=== PATIENT | male | born 1940 | race Caucasian/White ===

== ENCOUNTER → 2017-12-24 08:21 | Outpatient (CLI) | payer MEDICARE, BC, SELFPAY ==
[2017-12-24 12:42] LABS: Absolute Lymphocyte Count 0.99 X10^3/ul (0.83-4.51); Absolute Neutrophil Count 3.1 X10^3/uL (2.0-7.7); Basophil# 0.02 X10^3/uL; Basophil% 0.4 % (0-1); Eosinophil# 0.14 X10^3/uL; Hematocrit 38.2 % (40-54); Hemoglobin 12.7 g/dl (13.0-16.5); Lymphocyte # 0.99 X10^3/ul (4.0); Lymphocyte % 21.2 % (19-41); Mean Corp Hgb Conc 33.2 g/gl (32-36); Mean Corpuscular Hgb 30.6 pg (27.0-32.0); Mean Platelet Vol. 10.9 fl (6.2-12.0); Monocyte# 0.39 X10^3/uL; Monocyte% 8.4 % (0-10); Neutrophil # 3.12 X10^3/uL (2.7-7.7); Neutrophil % 66.8 % (47-70); Platelet Count 199 K/mm3 (150-450); RBC Distribution Width CV 13.6 % (11.6-14.6); Red Blood Count 4.15 M/mm3 (4.6-6.2); White Blood Count 4.7 K/mm3 (4.4-11.0)
[2017-12-24 12:53] LABS: POSITIVE COUNT NO; POSITIVE DIFFERENTIAL NO; POSITIVE MORPHOLOGY NO
[2017-12-24 13:00] LABS: Anion Gap 10 (5-15); BUN 43 mg/dL (7-18); BUN/Creat Ratio 18.3 RATIO (10-20); Calcium,Total 8.9 mg/dL (8.5-10.1); Chloride 106 mmol/L (98-107); Creatinine, Serum 2.35 mg/dL (0.70-1.30); EST Glomerular Filtration Rate 29 mL/min (>60); Est Glom Filt Rate - Afr Amer 35 mL/min (>60); Glucose 99 mg/dL (74-106); Magnesium 1.6 mg/dL (1.6-2.6); Potassium 5.1 mmol/L (3.5-5.1); Sodium Level 142 mmol/L (136-145); Thyroid Stim Hormone (TSH) 3.11 uIU/mL (0.358-3.74)
== END ==
PROVIDERS: Family Provider Family Medicine; PCP Family Medicine; Visit Provider Family Medicine
DX: I12.9 Hypertensive chronic kidney disease with stage 1 through stage 4 chronic kidney disease, or unspecified chronic kidney disease (principal); N18.9 Chronic kidney disease, unspecified; E83.42 Hypomagnesemia
CPT/HCPCS: 36415; 80048; 83735; 84443; 85025

== ENCOUNTER → 2018-01-08 13:52 | Outpatient (CLI) | payer MEDICARE, BC, SELFPAY ==
[2018-01-08 16:07] LABS: Anion Gap 11 (5-15); BUN 39 mg/dL (7-18); BUN/Creat Ratio 16.7 RATIO (10-20); Calcium,Total 8.9 mg/dL (8.5-10.1); Chloride 107 mmol/L (98-107); Creatinine, Serum 2.34 mg/dL (0.70-1.30); EST Glomerular Filtration Rate 29 mL/min (>60); Est Glom Filt Rate - Afr Amer 35 mL/min (>60); Glucose 117 mg/dL (74-106); Potassium 4.7 mmol/L (3.5-5.1); Sodium Level 142 mmol/L (136-145)
== END ==
PROVIDERS: Family Provider Family Medicine; PCP Family Medicine; Visit Provider Family Medicine
DX: I12.9 Hypertensive chronic kidney disease with stage 1 through stage 4 chronic kidney disease, or unspecified chronic kidney disease (principal); N18.9 Chronic kidney disease, unspecified
CPT/HCPCS: 36415; 80048

== ENCOUNTER → 2018-02-05 09:23 | Outpatient (CLI) | payer MEDICARE, BC, SELFPAY ==
[2018-02-05 12:16] LABS: Anion Gap 12 (5-15); BUN 41 mg/dL (7-18); BUN/Creat Ratio 16.9 RATIO (10-20); Calcium,Total 8.5 mg/dL (8.5-10.1); Chloride 105 mmol/L (98-107); Creatinine, Serum 2.43 mg/dL (0.70-1.30); EST Glomerular Filtration Rate 28 mL/min (>60); Est Glom Filt Rate - Afr Amer 34 mL/min (>60); Glucose 177 mg/dL (74-106); Potassium 4.5 mmol/L (3.5-5.1); Sodium Level 141 mmol/L (136-145)
== END ==
PROVIDERS: Family Provider Family Medicine; PCP Family Medicine; Visit Provider Family Medicine
DX: N18.9 Chronic kidney disease, unspecified (principal)
CPT/HCPCS: 36415; 80048

== ENCOUNTER → 2018-05-31 09:07 | Outpatient (CLI) | payer MEDICARE, BC, SELFPAY ==
[2018-05-31 12:30] LABS: Protein, Urine (Random) 24.6 mg/dL (<11.9); Protein:Creat Ratio 281 mg/g CRE (0-200)
[2018-05-31 12:32] LABS: Hematocrit 36.6 % (40-54); Mean Corp Hgb Conc 32.8 g/gl (32-36); Mean Corpuscular Hgb 31.2 pg (27.0-32.0); Mean Corpuscular Volume 95.1 fL (80-94); Mean Platelet Vol. 10.9 fl (6.2-12.0); Platelet Count 201 K/mm3 (150-450); RBC Distribution Width CV 12.7 % (11.6-14.6); Red Blood Count 3.85 M/mm3 (4.6-6.2); White Blood Count 5.3 K/mm3 (4.4-11.0)
[2018-05-31 12:35] LABS: Albumin, Serum 3.4 g/dL (3.2-5.0); BUN 39 mg/dL (7-18); Calcium,Total 8.6 mg/dL (8.5-10.1); Chloride 104 mmol/L (98-107); Creatinine, Serum 2.17 mg/dL (0.70-1.30); EST Glomerular Filtration Rate 32 mL/min (>60); Est Glom Filt Rate - Afr Amer 38 mL/min (>60); Glucose 130 mg/dL (74-106); Phosphorus 3.4 mg/dL (2.5-4.9); Potassium 4.6 mmol/L (3.5-5.1); Sodium Level 140 mmol/L (136-145)
[2018-05-31 12:37] LABS: Scan Indicated on CBC? Y/N NO
[2018-05-31 12:45] LABS: Vitamin D,25 Hydroxy 15.8 ng/mL (29.95-100.01)
[2018-05-31 13:07] LABS: PTHIN 155.6 pg/mL (18.4-80.1)
== END ==
PROVIDERS: Family Provider Family Medicine; PCP Family Medicine; Visit Provider Internal Medicine Nephrology
DX: I12.0 Hypertensive chronic kidney disease with stage 5 chronic kidney disease or end stage renal disease (principal); N18.5 Chronic kidney disease, stage 5
CPT/HCPCS: 36415; 80069; 82306; 82570; 83970; 84156; 85027

== ENCOUNTER → 2018-10-14 09:53 | Outpatient (CLI) | payer MEDICARE, BC, SELFPAY ==
[2018-10-14 12:45] LABS: White Blood Count 5.8 K/mm3 (4.4-11.0)
[2018-10-14 12:46] LABS: Hematocrit 35.8 % (40-54); Hemoglobin 12.2 g/dl (13.0-16.5); Mean Corp Hgb Conc 34.1 g/gl (32-36); Mean Corpuscular Hgb 29.8 pg (27.0-32.0); Mean Corpuscular Volume 87.5 fL (80-94); Mean Platelet Vol. 10.5 fl (6.2-12.0); Platelet Count 306 K/mm3 (150-450); RBC Distribution Width CV 13.5 % (11.6-14.6); RBC Distribution Width SD 43.3 fl (35.1-43.9); Red Blood Count 4.09 M/mm3 (4.6-6.2); Scan Indicated on CBC? Y/N NO
[2018-10-14 13:18] LABS: Albumin, Serum 3.4 g/dL (3.2-5.0); BUN 33 mg/dL (7-18); BUN/Creat Ratio 14.2 RATIO (10-20); Calcium,Total 8.7 mg/dL (8.5-10.1); Chloride 105 mmol/L (98-107); Creatinine, Serum 2.32 mg/dL (0.70-1.30); EST Glomerular Filtration Rate 29 mL/min (>60); Est Glom Filt Rate - Afr Amer 35 mL/min (>60); Glucose 136 mg/dL (74-106); PTHIN 122.4 pg/mL (18.4-80.1); Phosphorus 2.6 mg/dL (2.5-4.9); Protein, Urine (Random) 15.6 mg/dL (<11.9); Protein:Creat Ratio 97 mg/g CRE (0-200); Sodium Level 139 mmol/L (136-145); Vitamin D,25 Hydroxy 31.7 ng/mL (29.95-100.01)
== END ==
PROVIDERS: Family Provider Family Medicine; PCP Family Medicine; Referring Provider Physician Assistant Medical; Visit Provider Physician Assistant Medical
DX: N18.3 Chronic kidney disease, stage 3 (moderate) (principal)
CPT/HCPCS: 36415; 80069; 82306; 82570; 83970; 84156; 85027

== ENCOUNTER → 2019-02-17 09:37 | Outpatient (CLI) | payer MEDICARE, BC, SELFPAY ==
[2019-02-17 12:27] LABS: AST(SGOT) 17 U/L (15-37); Absolute Neutrophil Count 3.3 X10^3/uL (2.0-7.7); Alanine Aminotransfer ALT/SGPT 30 U/L (16-61); Albumin, Serum 3.5 g/dL (3.2-5.0); Alkaline Phosphatase 72 U/L (45-117); Amylase 40 U/L (25-115); Anion Gap 6 (5-15); BUN 41 mg/dL (7-18); BUN/Creat Ratio 17.5 RATIO (10-20); Basophil# 0.03 X10^3/uL; Basophil% 0.6 % (0-1); Calcium,Total 8.9 mg/dL (8.5-10.1); Chloride 108 mmol/L (98-107); Creatinine, Serum 2.34 mg/dL (0.70-1.30); EST Glomerular Filtration Rate 29 mL/min (>60); Eosinophil# 0.12 X10^3/uL; Eosinophils% 2.5 % (0-5); Est Glom Filt Rate - Afr Amer 35 mL/min (>60); Globulin 3.4 g/dL (2.2-4.2); Glucose 143 mg/dL (74-106); Hematocrit 35.7 % (40-54); Hemoglobin 11.6 g/dL (13.0-16.5); Mean Corp Hgb Conc 32.5 g/dL (32-36); Mean Corpuscular Hgb 30.2 pg (27.0-32.0); Mean Platelet Vol. 11.1 fl (6.2-12.0); Monocyte# 0.47 X10^3/uL; NRBC Flagged by Analyzer 0 % (0-5); Neutrophil # 3.28 X10^3/uL (2.7-7.7); Neutrophil % 69.7 % (47-70); Platelet Count 206 K/mm3 (150-450); Protein, Total 6.9 g/dL (6.4-8.2); RBC Distribution Width SD 44.3 fl (35.1-43.9); Red Blood Count 3.84 M/mm3 (4.6-6.2); Sodium Level 142 mmol/L (136-145); White Blood Count 4.7 K/mm3 (4.4-11.0)
== END ==
PROVIDERS: Family Provider Family Medicine; PCP Family Medicine; Referring Provider Internal Medicine Gastroenterology; Visit Provider Internal Medicine Gastroenterology
DX: R10.84 Generalized abdominal pain (principal); R19.7 Diarrhea, unspecified
CPT/HCPCS: 36415; 80053; 82150; 85025

== ENCOUNTER → 2019-02-18 08:43 | Outpatient (CLI) | payer MEDICARE, BC, SELFPAY | PROVIDERS: Family Provider Family Medicine; PCP Family Medicine; Referring Provider Internal Medicine Gastroenterology; Visit Provider Internal Medicine Gastroenterology | DX: R10.84 Generalized abdominal pain (principal); R19.7 Diarrhea, unspecified | CPT/HCPCS: 82274; 83630; 87177; 87209; 87493 ==

== ENCOUNTER → 2019-02-24 13:11 | Outpatient (CLI) | payer MEDICARE, BC, SELFPAY ==
[2019-02-24 15:56] LABS: Ferritin 130 ng/mL (26-388); Iron 59 ug/dL (65-175)
[2019-02-24 16:01] LABS: Vitamin B12 384 pg/mL (211-911)
[2019-02-27 16:08] LABS: Endomysial Antibody IgA Negative (Negative)
[2019-02-28 12:48] LABS: Deamidated Gliadin IgA 2 units (0-19); Deamidated Gliadin IgG 2 units (0-19); Immunoglobulin A 77 mg/dL (61-437); t-Transglutaminase IgA <2 U/mL (0-3)
== END ==
PROVIDERS: Family Provider Family Medicine; PCP Family Medicine; Referring Provider Internal Medicine Gastroenterology; Visit Provider Internal Medicine Gastroenterology
DX: D64.9 Anemia, unspecified (principal); R14.0 Abdominal distension (gaseous); R94.4 Abnormal results of kidney function studies
CPT/HCPCS: 36415; 82607; 82728; 82784; 83516; 83540; 86255

== ENCOUNTER → 2019-12-29 10:49 | Outpatient (CLI) | payer MEDICARE, BC, SELFPAY ==
[2019-08-14 17:31] VITALS: BMI 34.6
[2019-12-29 12:00] LABS: Absolute Lymphocyte Count 0.86 X10^3/uL (0.83-4.51); Absolute Neutrophil Count 3.7 X10^3/uL (2.0-7.7); Basophil# 0.03 X10^3/uL; Basophil% 0.6 % (0-1); Eosinophil# 0.15 X10^3/uL; Eosinophils% 2.9 % (0-5); Hematocrit 38.4 % (40-54); Hemoglobin 12.7 g/dL (13.0-16.5); Lymphocyte # 0.86 X10^3/ul (4.0); Lymphocyte % 16.8 % (19-41); Mean Corp Hgb Conc 33.1 g/dL (32-36); Mean Corpuscular Hgb 30.6 pg (27.0-32.0); Mean Corpuscular Volume 92.5 fL (80-94); Monocyte# 0.34 X10^3/uL; Monocyte% 6.7 % (0-10); NRBC Flagged by Analyzer 0 % (0-5); Neutrophil # 3.72 X10^3/uL (2.7-7.7); Neutrophil % 72.8 % (47-70); Platelet Count 193 K/mm3 (150-450); RBC Distribution Width CV 12.9 % (11.6-14.6); RBC Distribution Width SD 43.1 fl (35.1-43.9); Red Blood Count 4.15 M/mm3 (4.6-6.2); White Blood Count 5.1 K/mm3 (4.4-11.0)
[2019-12-29 12:28] LABS: Hemoglobin A1c 6.9 % (3.8-5.6)
[2019-12-29 12:33] LABS: ALB/GLOB Ratio 1.1 RATIO (0.9-2.4); AST(SGOT) 21 U/L (15-37); Alanine Aminotransfer ALT/SGPT 28 U/L (16-61); Albumin, Serum 3.6 g/dL (3.2-5.0); Alkaline Phosphatase 49 U/L (45-117); Anion Gap 6 (5-15); BUN 32 mg/dL (7-18); BUN/Creat Ratio 15.4 RATIO (10-20); Calcium,Total 8.8 mg/dL (8.5-10.1); Chloride 105 mmol/L (98-107); Cholesterol 151 mg/dL (200); Creatinine, Serum 2.08 mg/dL (0.70-1.30); EST Glomerular Filtration Rate 33 mL/min (>60); Est Glom Filt Rate - Afr Amer 40 mL/min (>60); Ferritin 125 ng/mL (26-388); Globulin 3.3 g/dL (2.2-4.2); Glucose 124 mg/dL (74-106); High Density Lipoprotein 34 mg/dL; Iron 77 ug/dL (65-175); Magnesium 1.8 mg/dL (1.6-2.6); Potassium 4.1 mmol/L (3.5-5.1); Protein, Total 6.9 g/dL (6.4-8.2); Sodium Level 139 mmol/L (136-145); Triglycerides 173 mg/dL; Very Low Density Lipoprotein 35 mg/dL (5-40)
== END ==
PROVIDERS: PCP Family Medicine; Visit Provider Family Medicine
DX: I12.9 Hypertensive chronic kidney disease with stage 1 through stage 4 chronic kidney disease, or unspecified chronic kidney disease (principal); N18.9 Chronic kidney disease, unspecified; D50.9 Iron deficiency anemia, unspecified; E78.00 Pure hypercholesterolemia, unspecified; E83.42 Hypomagnesemia; R73.01 Impaired fasting glucose
CPT/HCPCS: 36415; 80053; 80061; 82728; 83036; 83540; 83735; 85025

== ENCOUNTER → 2020-03-31 11:10 | Outpatient (CLI) | payer MEDICARE, BC, SELFPAY ==
[2019-08-14 17:31] VITALS: BMI 34.6
[2020-03-31 15:33] LABS: Absolute Lymphocyte Count 1.01 X10^3/uL (0.83-4.51); Basophil# 0.04 X10^3/uL; Basophil% 0.6 % (0-1); Eosinophil# 0.13 X10^3/uL; Eosinophils% 1.9 % (0-5); Hematocrit 39.4 % (40-54); Lymphocyte # 1.01 X10^3/ul (4.0); Lymphocyte % 15.1 % (19-41); Mean Corpuscular Hgb 30.4 pg (27.0-32.0); Mean Corpuscular Volume 92.1 fL (80-94); Monocyte# 0.46 X10^3/uL; Monocyte% 6.9 % (0-10); NRBC Flagged by Analyzer 0 % (0-5); Neutrophil # 4.97 X10^3/uL (2.7-7.7); Neutrophil % 74.3 % (47-70); Platelet Count 225 K/mm3 (150-450); RBC Distribution Width CV 12.7 % (11.6-14.6); RBC Distribution Width SD 42.5 fl (35.1-43.9); Red Blood Count 4.28 M/mm3 (4.6-6.2); White Blood Count 6.7 K/mm3 (4.4-11.0)
[2020-03-31 16:04] LABS: ALB/GLOB Ratio 1.1 RATIO (0.9-2.4); AST(SGOT) 20 U/L (15-37); Alanine Aminotransfer ALT/SGPT 30 U/L (16-61); Albumin, Serum 3.8 g/dL (3.2-5.0); Alkaline Phosphatase 52 U/L (45-117); Anion Gap 6 (5-15); BUN 42 mg/dL (7-18); BUN/Creat Ratio 18.6 RATIO (10-20); Calcium,Total 9.1 mg/dL (8.5-10.1); Chloride 104 mmol/L (98-107); Creatinine, Serum 2.26 mg/dL (0.70-1.30); EST Glomerular Filtration Rate 30 mL/min (>60); Est Glom Filt Rate - Afr Amer 36 mL/min (>60); Ferritin 159 ng/mL (26-388); Globulin 3.5 g/dL (2.2-4.2); Glucose 114 mg/dL (74-106); Iron 83 ug/dL (65-175); Magnesium 1.9 mg/dL (1.6-2.6); Potassium 4.6 mmol/L (3.5-5.1); Protein, Total 7.3 g/dL (6.4-8.2); Sodium Level 138 mmol/L (136-145)
[2020-03-31 18:49] LABS: Vitamin D,25 Hydroxy 35.2 ng/mL
== END ==
PROVIDERS: PCP Family Medicine; Visit Provider Family Medicine
DX: R73.01 Impaired fasting glucose (principal); I12.9 Hypertensive chronic kidney disease with stage 1 through stage 4 chronic kidney disease, or unspecified chronic kidney disease; N18.9 Chronic kidney disease, unspecified; D63.1 Anemia in chronic kidney disease; E55.9 Vitamin D deficiency, unspecified
CPT/HCPCS: 36415; 80053; 82306; 82728; 83540; 83735; 85025

== ENCOUNTER → 2020-09-10 08:35 | Outpatient (CLI) | payer MEDICARE, BC, SELFPAY ==
[2019-08-14 17:31] VITALS: BMI 34.6
--- NOTE | 2020-09-10 08:40 | ECHOD_ITS ---
Reason For Study: SOB Procedure This was a 2D Doppler, Color Flow transthoracic echocardiogram. The study was technically difficult. Exam performed in department. Left Ventricle Normal LV size. Moderate concentric left ventricular hypertrophy. Left ventricular systolic function is normal. The estimated ejection fraction is 60 %. Septal bounce. Diastolic function is indeterminate. No regional wall motion abnormalities noted. Right Ventricle Normal RV size. Normal systolic function. Atria Normal left atrium. Normal right atrium. No doppler evidence for ASD. Mitral Valve There is no mitral annular calcification. Normal mitral valve. Moderate (2+) eccentric mitral valve insufficiency. Tricuspid Valve Normal tricuspid valve. Mild tricuspid valve insufficiency. Right ventricular systolic pressure estimated to be 31 mmHg. Aortic Valve The aortic valve is not well visualized. Pulmonic Valve The pulmonic valve is not well visualized. Trivial pulmonic valve insufficiency. Great Vessels Normal sized aortic root. Pericardium/Pleural No pericardial effusion. MMode/2D Measurements & Calculations LVIDd: 4.8 cm IVSd: 1.3 cm Ao root diam: 4.3 cm LVIDs: 2.9 cm LVPWd: 1.4 cm RVDd: 3.4 cm FS: 38.8 % LAV(MOD-bp): 36.9 ml LVAd ap4: 31.0 cm2 SV(MOD-sp4): 54.3 ml LAV(MOD-bp) Indexed: 17.0 ml/m2 EDV(MOD-sp4): 91.0 ml LAV(MOD-sp2): 54.0 ml EDV(sp4-el): 94.7 ml LAV(MOD-sp4): 22.1 ml LVAs ap4: 18.4 cm2 ESV(MOD-sp4): 36.7 ml ESV(sp4-el): 37.7 ml EF(MOD-sp4): 59.7 % EF(sp4-el): 60.2 % SV(sp4-el): 57.0 ml LA A4 area: 11.2 cm2 LA dimension(2D): 4.0 cm RA A4 area: 10.1 cm2 Doppler Measurements & Calculations MV E max rolf: 69.5 cm/sec Lat Peak E' Rolf: 6.1 cm/sec Med Peak E' Rolf: 4.3 cm/sec MV A max rolf: 115.0 cm/sec E/E' lat: 11.4 E/E' med: 16.3 MV E/A: 0.60 Ao V2 max: 153.2 cm/sec LV V1 max: 115.6 cm/sec PA V2 max: 122.2 cm/sec Ao max P.4 mmHg LV V1 max P.3 mmHg TR max rolf: 262.9 cm/sec TR max P.7 mmHg ECHO/Echo Complete Interpretation Summary The study was technically difficult. Left ventricular systolic function is normal. The estimated ejection fraction is 60 %. Moderate concentric left ventricular hypertrophy. Septal bounce. Moderate (2+) eccentric mitral valve insufficiency. Mild tricuspid valve insufficiency. Trivial pulmonic valve insufficiency. Right ventricular systolic pressure estimated to be 31 mmHg. Diastolic function is indeterminate. Ordering Physician: Chris Nix Referring Physician: Chris Nix Performed By: Mary Sam RDCS
== END ==
PROVIDERS: PCP Family Medicine; Referring Provider Family Medicine; Visit Provider Family Medicine
DX: R06.00 Dyspnea, unspecified (principal); I11.9 Hypertensive heart disease without heart failure
CPT/HCPCS: 93306

== ENCOUNTER → 2022-08-22 | Outpatient (CLI) | payer MEDICARE, BC, SELFPAY ==
[2022-08-22 10:28] LABS: Vitamin B12 428 pg/mL (211-911)
[2022-08-22 10:30] LABS: ALB/GLOB Ratio 0.9 RATIO (0.9-2.4); AST(SGOT) 20 U/L (15-37); Alanine Aminotransfer ALT/SGPT 25 U/L (16-61); Albumin, Serum 3.4 g/dL (3.2-5.0); Alkaline Phosphatase 67 U/L (45-117); Anion Gap 6 (5-15); BUN 38 mg/dL (7-18); Calcium,Total 8.9 mg/dL (8.5-10.1); Chloride 108 mmol/L (98-107); Cholesterol 162 mg/dL (200); EST Glomerular Filtration Rate 34 mL/min (>60); Est Glom Filt Rate - Afr Amer 42 mL/min (>60); Globulin 3.7 g/dL (2.2-4.2); Glucose 141 mg/dL (74-106); High Density Lipoprotein 34 mg/dL; PSA,Total - Annual Screen 0.26 ng/mL (0.00-4.00); Protein, Total 7.1 g/dL (6.4-8.2); Sodium Level 138 mmol/L (136-145); Triglycerides 214 mg/dL; Very Low Density Lipoprotein 43 mg/dL (5-40)
[2022-08-22 12:26] LABS: Hemoglobin A1c 6.3 % (3.8-5.6)
[2022-08-25 09:46] LABS: Vitamin D 1,25-Dihydroxy 23.3 pg/mL (24.8-81.5)
== END | disposition home or self-care (01) ==
PROVIDERS: PCP Family Medicine; Referring Provider Family Medicine; Visit Provider Family Medicine
DX: I10 Essential (primary) hypertension (principal); R73.01 Impaired fasting glucose; E78.2 Mixed hyperlipidemia; K21.9 Gastro-esophageal reflux disease without esophagitis; Z12.5 Encounter for screening for malignant neoplasm of prostate
CPT/HCPCS: 36415; 80053; 80061; 82043; 82607; 82652; 83036; 84153; G0103

== ENCOUNTER → 2022-09-01 | Outpatient (CLI) | payer MEDICARE, BC, SELFPAY ==
--- NOTE | 2022-09-01 08:46 | ECHOD_ITS ---
Reason For Study: MURMUR Procedure This was a 2D Doppler, Color Flow transthoracic echocardiogram. Exam performed in department. Left Ventricle Normal LV size. Mild concentric left ventricular hypertrophy. The left ventricular ejection fraction is 65 %. Normal diastology for age. Right Ventricle Normal right ventricle. Atria The left and right atria are normal. 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 Tricuspid Valve Mild tricuspid valve insufficiency. Normal pulmonary artery pressure. Aortic Valve Trisinus/trileaflet aortic valve. Trivial aortic valve insufficiency. Pulmonic Valve The pulmonic valve is not well visualized. Great Vessels Moderately dilated aortic root. Pericardium/Pleural No pericardial effusion. MMode/2D Measurements & Calculations Ao root diam: 4.4 cm LAV(MOD-bp): 44.1 ml LVAd ap4: 32.2 cm2 LAV(MOD-bp) Indexed: 22.9 ml/m2 LVLd ap4: 8.3 cm LAV(MOD-sp2): 46.7 ml EDV(MOD-sp4): 99.6 ml LAV(MOD-sp4): 41.7 ml EDV(sp4-el): 105.2 ml LVAs ap4: 17.3 cm2 LVLs ap4: 7.3 cm ESV(MOD-sp4): 34.4 ml ESV(sp4-el): 34.5 ml EF(MOD-sp4): 65.5 % EF(sp4-el): 67.3 % SV(MOD-sp4): 65.2 ml SV(sp4-el): 70.8 ml LA A4 area: 16.3 cm2 LA dimension(2D): 3.7 cm RA A4 area: 14.2 cm2 Time Measurements MV dec time: 0.24 sec Doppler Measurements & Calculations MV E max rolf: 84.6 cm/sec Lat Peak E' Rolf: 10.0 cm/sec Med Peak E' Rolf: 7.8 cm/sec MV A max rolf: 102.9 cm/sec E/E' lat: 8.5 E/E' med: 10.9 MV E/A: 0.82 MV V2 max: 114.6 cm/sec MV dec slope: 352.5 cm/sec2 Ao V2 max: 127.0 cm/sec MV max P.3 mmHg Ao max P.5 mmHg MV V2 mean: 60.9 cm/sec Ao V2 mean: 88.1 cm/sec MV mean P.8 mmHg Ao mean P.5 mmHg MV V2 VTI: 43.8 cm Ao V2 VTI: 30.6 cm AV (velocity ratio): 0.82 LV V1 max: 109.6 cm/sec MR max rolf: 597.9 cm/sec PA V2 max: 103.8 cm/sec LV V1 max P.8 mmHg MR max P.0 mmHg PA V2 mean: 60.9 cm/sec LV V1 mean P.8 mmHg MR mean rolf: 421.7 cm/sec LV V1 mean: 76.3 cm/sec MR mean P.9 mmHg LV V1 VTI: 25.2 cm MR VTI: 218.7 cm TR max rolf: 249.4 cm/sec TR max P.9 mmHg ECHO/Echo Complete Interpretation Summary Mild concentric left ventricular hypertrophy. The left ventricular ejection fraction is 65 %. 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 Mild tricuspid valve insufficiency. Moderately dilated aortic root. Ordering Physician: Mandy Billings Referring Physician: Mandy Billings Performed By: Deborah Che RCS
== END | disposition home or self-care (01) ==
LOC: CVS 08:44
PROVIDERS: PCP Family Medicine; Referring Provider Family Medicine; Visit Provider Family Medicine
DX: R01.1 Cardiac murmur, unspecified (principal)
CPT/HCPCS: 93306

== ENCOUNTER → 2023-09-17 | Outpatient (CLI) | payer MEDICARE, BC, SELFPAY ==
[2023-09-17 12:10] LABS: Absolute Lymphocyte Count 0.93 X10^3/uL (0.83-4.51); Basophil# 0.04 X10^3/uL; Basophil% 0.7 % (0-1); Eosinophil# 0.16 X10^3/uL; Eosinophils% 2.9 % (0-5); Hematocrit 39.3 % (40-54); Hemoglobin 12.9 g/dL (13.0-16.5); Lymphocyte # 0.93 X10^3/ul (0.83-4.51); Lymphocyte % 16.6 % (19-41); Mean Corp Hgb Conc 32.8 g/dL (32-36); Mean Corpuscular Hgb 30.6 pg (27.0-32.0); Mean Corpuscular Volume 93.3 fL (80-94); Mean Platelet Vol. 10.6 fl (6.2-12.0); Monocyte# 0.42 X10^3/uL; Monocyte% 7.5 % (0-10); NRBC Flagged by Analyzer 0 % (0-5); Neutrophil # 4.02 X10^3/uL (2.7-7.7); Neutrophil % 71.9 % (47-70); Platelet Count 216 K/mm3 (150-450); RBC Distribution Width CV 13.1 % (11.6-14.6); RBC Distribution Width SD 44.5 fl (35.1-43.9); Red Blood Count 4.21 M/mm3 (4.6-6.2); White Blood Count 5.6 K/mm3 (4.4-11.0)
[2023-09-17 12:25] LABS: AST(SGOT) 18 U/L (15-37); Alanine Aminotransfer ALT/SGPT 26 U/L (16-61); Albumin, Serum 3.5 g/dL (3.2-5.0); Alkaline Phosphatase 53 U/L (45-117); Anion Gap 6 (5-15); BUN 43 mg/dL (7-18); BUN/Creat Ratio 18.9 RATIO (10-20); Calcium,Total 8.8 mg/dL (8.5-10.1); Chloride 107 mmol/L (98-107); Cholesterol 180 mg/dL (200); Creatinine, Serum 2.28 mg/dL (0.70-1.30); EST Glomerular Filtration Rate 30 mL/min (>60); Est Glom Filt Rate - Afr Amer 36 mL/min (>60); Globulin 3.4 g/dL (2.2-4.2); Glucose 156 mg/dL (74-106); High Density Lipoprotein 31 mg/dL; Magnesium 1.9 mg/dL (1.6-2.6); PSA,Total - Annual Screen 0.32 ng/mL (0.00-4.00); Potassium 4.4 mmol/L (3.5-5.1); Protein, Total 6.9 g/dL (6.4-8.2); Sodium Level 140 mmol/L (136-145); Triglycerides 265 mg/dL; Very Low Density Lipoprotein 53 mg/dL (5-40)
[2023-09-17 12:44] LABS: Vitamin D,25 Hydroxy 48.6 ng/mL
== END | disposition home or self-care (01) ==
PROVIDERS: PCP Nurse Practitioner Family; Referring Provider Nurse Practitioner Family; Visit Provider Nurse Practitioner Family
DX: I12.9 Hypertensive chronic kidney disease with stage 1 through stage 4 chronic kidney disease, or unspecified chronic kidney disease (principal); N18.9 Chronic kidney disease, unspecified; E78.00 Pure hypercholesterolemia, unspecified; E55.9 Vitamin D deficiency, unspecified; Z12.5 Encounter for screening for malignant neoplasm of prostate
CPT/HCPCS: 36415; 80053; 80061; 82306; 83735; 84153; 85025; G0103

== ENCOUNTER → 2024-03-14 | Outpatient (CLI) | payer MEDICARE, BC, SELFPAY ==
[2024-03-14 10:39] LABS: Absolute Lymphocyte Count 1.26 X10^3/uL (0.83-4.51); Absolute Neutrophil Count 4.1 X10^3/uL (2.0-7.7); Basophil# 0.03 X10^3/uL; Basophil% 0.5 % (0-1); Eosinophil# 0.14 X10^3/uL; Eosinophils% 2.3 % (0-5); Hematocrit 40.2 % (40-54); Hemoglobin 13.5 g/dL (13.0-16.5); Lymphocyte # 1.26 X10^3/ul (0.83-4.51); Lymphocyte % 21.1 % (19-41); Mean Corp Hgb Conc 33.6 g/dL (32-36); Mean Corpuscular Hgb 31.5 pg (27.0-32.0); Mean Corpuscular Volume 93.7 fL (80-94); Mean Platelet Vol. 10.7 fl (6.2-12.0); Monocyte# 0.45 X10^3/uL; Monocyte% 7.6 % (0-10); NRBC Flagged by Analyzer 0 % (0-5); Neutrophil # 4.06 X10^3/uL (2.7-7.7); Neutrophil % 68.2 % (47-70); Platelet Count 216 K/mm3 (150-450); RBC Distribution Width CV 12.9 % (11.6-14.6); RBC Distribution Width SD 44.1 fl (35.1-43.9); Red Blood Count 4.29 M/mm3 (4.6-6.2)
[2024-03-14 11:23] LABS: Vitamin B12 475 pg/mL (211-911)
[2024-03-14 12:07] LABS: AST(SGOT) 16 U/L (15-37); Alanine Aminotransfer ALT/SGPT 27 U/L (16-61); Albumin, Serum 3.6 g/dL (3.2-5.0); Alkaline Phosphatase 64 U/L (45-117); Anion Gap 7 (5-15); BUN 38 mg/dL (7-18); BUN/Creat Ratio 15.4 RATIO (10-20); Calcium,Total 9.4 mg/dL (8.5-10.1); Chloride 104 mmol/L (98-107); Creatinine, Serum 2.46 mg/dL (0.70-1.30); EST Glomerular Filtration Rate 27 mL/min (>60); Est Glom Filt Rate - Afr Amer 33 mL/min (>60); Ferritin 153 ng/mL (26-388); Globulin 3.6 g/dL (2.2-4.2); Glucose 153 mg/dL (74-106); Iron 80 ug/dL (65-175); Iron Binding Capacity,Total 375 ug/dL (250-450); PERCENT IRON SATURATION 21.3 % (15.0-55.0); Protein, Total 7.2 g/dL (6.4-8.2); Sodium Level 137 mmol/L (136-145)
== END | disposition home or self-care (01) ==
LOC: MTLAB 07:28
PROVIDERS: PCP Nurse Practitioner Family
DX: K22.70 Barrett's esophagus without dysplasia (principal); D64.9 Anemia, unspecified
CPT/HCPCS: 36415; 80053; 82607; 82728; 82746; 83540; 83550; 85025

== ENCOUNTER → 2024-10-07 | Outpatient (CLI) | payer MEDICARE, BC, SELFPAY ==
[2024-10-07 15:50] LABS: ALB/GLOB Ratio 1.5 RATIO (0.9-2.4); AST(SGOT) 22 U/L (<=37); Alanine Aminotransfer ALT/SGPT 19 U/L (<=46); Albumin, Serum 3.9 g/dL (3.4-4.8); Alkaline Phosphatase 52 U/L (40-129); Anion Gap 13 (5-15); BUN 37 mg/dL (4-19); BUN/Creat Ratio 17.4 RATIO (10-20); Calcium,Total 9.5 mg/dL (7.6-11.0); Carbon Dioxide 21.6 mmol/L (21.0-32.0); Chloride 104 mmol/L (98-108); Creatinine, Serum 2.15 mg/dL (0.70-1.20); EST Glomerular Filtration Rate 30 (>60); Globulin 2.6 g/dL (2.2-4.2); Glucose 206 mg/dL (70-99); Potassium 4.5 mmol/L (3.3-5.1); Protein, Total 6.5 g/dL (5.9-8.4); Sodium Level 138 mmol/L (133-145); Total Bilirubin 0.39 mg/dL (0.00-1.30)
== END | disposition home or self-care (01) ==
LOC: MTLAB 12:52
PROVIDERS: PCP Nurse Practitioner Family; Referring Provider Internal Medicine Cardiovascular Disease; Visit Provider Internal Medicine Cardiovascular Disease
DX: R06.09 Other forms of dyspnea (principal); I10 Essential (primary) hypertension; R00.2 Palpitations
CPT/HCPCS: 36415; 80053

== ENCOUNTER → 2024-11-17 | Outpatient (CLI) | payer MEDICARE, BC, SELFPAY ==
--- OUTSIDE RECORDS SUMMARY | 2024-11-17 06:32 | XMS RPT_ITS | CCD ---
Author Organization [facility] Care Team Providers Care Pond Worker Name Role Phone PLECHA, AMANDA Unavailable Unavailable PLECHA, AMANDA Unavailable Unavailable DAMIEN, CHRIS Unavailable Unavailable YOUNIS, BISHR Unavailable Unavailable PLECHA, AMANDA Unavailable Unavailable DAMIEN, CHRIS Unavailable Unavailable PLECHA, AMANDA Unavailable Unavailable DAMIEN, CHRIS Unavailable Unavailable PLECHA, AMANDA Unavailable Unavailable DAMIEN, CHRIS Unavailable Unavailable PLECHA, AMANDA Unavailable Unavailable DAMIEN, CHRIS Unavailable Unavailable PLECHA, AMANDA Unavailable Unavailable PLECHA, AMANDA Unavailable Unavailable DAMIEN, CHRIS Unavailable Unavailable PLECHA, AMANDA Unavailable Unavailable DAMIEN, CHRIS Unavailable Unavailable DO Mandy Billings Primary Care Provider Dr. Gurpreet Aggarwal Attending Provider Chris Nix MD Primary Care Provider Una GENERAL HOUSE WORKER-C, Suze Primary Care Provider Una GENERAL HOUSE WORKER-C, Suze Referring Provider Dr. Gurpreet Aggarwal MD Attending Provider [phone] Dr. Gurpreet Aggarwal MD Referring Provider Gurpreet Aggarwal Attending Unavailable JasenGurpreet Referring Unavailable Una, Suze Primary Care Unavailable JESSICA DANGELOBARREL COATER Attending Unavailab le JESSICA DANGELO APRN-BARREL COATER Referring Unavailab le Una, Suze Primary Care Unavailable JasenGurpreet Attending Unavailable Jasen Gurpreet Referring Unavailable Una, Suze Primary Care Unavailable Una, Suze Referring Unavailable Jasen, Gurpreet Attending Unavailable Una, Suze Primary Care Unavailable Allergies Allergy Classification Reported Allergen(s) Allergy Type Date of Onset Reaction(s) Facility (6 sources) Adhesive Tape; Translations: [adhesive tape] Propensity to adverse reactions 0 Unknown [facility] (6 sources) Cephalexin Drug Allergy 0 Rash [facility] (6 sources) Chocolate; Translations: [chocolate flavor] Propensity to adverse reactions 0 Unknown [facility] (5 sources) Sulfonamides (Antibiotic) Allergy to substance 0 Rash [facility] (1 source) Adhesive Tape Allergy to substance 0 Unknown [facility] (1 source) Chocolate Food Allergy 0 Unknown [facility] (1 source) Sulfonamides (Antibiotic) Propensity to adverse reactions to drug 1 Rash, Unknown [facility] (1 source) Cephalexin Drug Allergy 5 [facility] Repository (1 source) Sulfonamides (Antibiotic) Drug allergy (disorder) 5 [facility] Repository Medications Current Medications Medication Drug Class(es) Dates Sig (Normalized) Sig (Original) amLODIPine 10 mg oral tablet (8 sources) Dihydropyridine Calcium Channel Tate Start: 10-01-2024 take 1 tablet by mouth once daily Amlodipine 10 mg tablet Active 10 mg PO daily October 01, 2024 12:00am Start: 06-18-2017 End: 10-01-2024 take 1 tablet by mouth once daily Amlodipine 2.5 mg tablet Discontinued 2.5 mg PO daily June 18, 2017 1:00am October 01, 2024 3:54pm take 1 tablet by el twice daily amLODIPine (NORVASC) 5 mg tablet Take 5 mg by mouth twice daily. Active aspirin 81 mg chewable tablet (6 sources) Platelet Aggregation Inhibitor, Nonsteroidal Anti-inflammatory Drug Start: 06-02-2017 Aspirin 81 MG tablet,chewable Active 81 mg PO June 02, 2017 1:00am cholecalciferol 0.125 mg oral capsule (7 sources) Vitamin D Start: 10-01-2024 take 1 capsule by mouth once daily Cholecalciferol (Vitamin D3) 125 mcg (5,000 unit) capsule Active 125 ug PO daily October 01, 2024 12:00am Start: 08-14-2019 End: 10-01-2024 take 1 capsule by mouth once daily Cholecalciferol (Vitamin D3) 1,250 mcg (50,000 unit) capsule Discontinued 1250 ug PO DAILY August 14, 2019 12:00am October 01, 2024 3:59pm cyclobenzaprine hydrochloride 10 mg oral tablet (6 sources) Muscle Relaxant Start: 06-15-2017 take 5 mg by mouth three times daily as needed Cyclobenzaprine 10 mg tablet Active 5 mg PO THREE TIMES A DAY as needed June 15, 2017 1:00am Start: 06-15-2017 take 5 mg by mouth t hree times daily Cyclobenzaprine Active 5 MG PO THREE TIMES A DAY June 15, 2017 1:00am take 1 tablet by el th every twelve hours as needed cyclobenzaprine (FLEXERIL) 10 mg tablet Take 10 mg by mouth twice daily as needed. Active doxazosin 4 mg oral tablet (5 sources) alpha-Adrenergic Tate Start: 08-14-2019 take 1 tablet by mouth once daily Doxazosin 4 mg tablet Active 4 mg PO DAILY August 14, 2019 12:00am fenofibrate 145 mg oral tablet (6 sources) Peroxisome Proliferator Receptor alpha Agonist Start: 06-02-2017 take 1 tablet by mouth once daily Fenofibrate Nanocrystallized 145 MG tablet Active 145 mg PO DAILY June 02, 2017 1:00am hydroCHLOROthiazide 25 mg oral tablet (6 sources) Thiazide Diuretic Start: 06-02-2017 take 1 tablet by mouth once daily Hydrochlorothiazide 25 MG tablet Active 25 mg PO DAILY June 02, 2017 1:00am lansoprazole 30 mg delayed release oral capsule (2 sources) Proton Pump Inhibitor Start: 10-01-2024 Lansoprazole 30 mg capsule,delayed release(DR/EC) Active mg PO October 01, 2024 12:00am Magnesium (1 source) take 2 tablets by mouth once daily Magnesium 250 mg tab Take 500 mg by mouth once daily. Active magnesium oxide 400 mg oral capsule (10 sources) Start: 06-15-2017 take 1 capsule by mouth once daily Magnesium Oxide 400 mg capsule Active 400 mg PO daily June 15, 2017 1:00am Start: 06-02-2017 End: 06-15-2017 take 1 tablet by mouth twice daily Magnesium Oxide 250 MG tablet Discontinued 250 mg PO TWICE A DAY June 02, 2017 1:00am June 15, 2017 12:47pm metoprolol tartrate 100 mg oral tablet (11 sources) beta-Adrenergic Tate Start: 06-18-2017 take 1 tablet by mouth twice daily Metoprolol Tartrate 100 mg tablet Active 100 mg PO TWICE A DAY June 18, 2017 1:00am Start: 06-02-2017 End: 06-18-2017 take 1 tablet by mouth twice daily Metoprolol Tartrate 50 MG tablet Discontinued 50 mg PO TWICE A DAY June 02, 2017 1:00am June 18, 2017 11:38am Bqwbaqob-Thmi-Sic-Folic Acid (3 sources) Start: 06-02-2017 Nkfjabhr-Hmmj-Vgc-Folic Acid Active 1 EACH PO DAILY June 02, 2017 1:00am Ftzbkpin-Mhjy-Riw-Folic Acid 1 EACH tablet (2 sources) Start: 06-02-2017 take 1 tablet by mouth once daily Ijozwvdk-Edtr-Aru-Folic Acid 1 EACH tablet Active 1 NMA PO DAILY June 02, 2017 1:00am tamsulosin hydrochloride 0.4 mg oral capsule (6 sources) alpha-Adre nergic Tate Start: 06-02-2017 Tamsulosin 0.4 MG capsule Active 1 {tbl} PO TWICE A DAY June 02, 2017 1:00am Start: 06-02-2017 take 1 tablet by el th twice daily Tamsulosin Active 1 TABLET PO TWICE A DAY June 02, 2017 1:00am triamcinolone acetonide 1 mg/ml topical cream (2 sources) Corticosteroid Start: 10-01-2024 Triamcinolone Acetonide 0.1 % cream Active 1 NMA TOPICAL TWICE A DAY as needed October 01, 2024 12:00am apply to affected area 2 times per day as needed Completed/Discontinued Medications Medication Drug Class(es) Dates Sig (Normalized) Sig (Original) azithromycin 250 mg oral tablet (5 sources) Macrolide Antimicrobial Start: 08-14-2019 End: 10-01-2024 Azithromycin 250 mg tablet Discontinued 250 mg PO daily 12 August 14, 2019 12:00am October 01, 2024 3:55pm 2 tablets today, then 1 tablet daily on days 2 through 11 colestipol hydrochloride 1000 mg oral tablet (5 sources) Bile Acid Sequestrant Start: 08-14-2019 End: 10-01-2024 take 1 tablet by mouth once Colestipol 1 gram tablet Discontinued 1 g PO ONCE August 14, 2019 12:00am October 01, 2024 4:00pm swallow whole tab w/any liquid;do not crush/chew/cut;adm inister other meds 1hr before/4hr after taking dose fexofenadine hydrochloride 60 mg oral tablet (11 sources) Histamine-1 Receptor Antagonist Start: 06-15-2017 End: 08-14-2019 take 1 tablet by mouth every twelve hours as needed Fexofenadine 60 mg tablet Discontinued 60 mg PO Q12H as needed June 18, 2017 11:38am August 14, 2019 5:28pm take 1 capsule by mo [facility] every twelve hours as needed FEXOFENADINE 60 MG CAP Take 60 mg by el th twice daily as needed. Active gabapentin 100 mg oral capsule (2 sources) Anti-epileptic Agent Start: 10-01-2024 End: 10-07-2024 take 1 capsule by mouth three times daily Gabapentin 100 mg capsule Discontinued 100 mg PO THREE TIMES A DAY October 01, 2024 12:00am October 07, 2024 11:09am loperamide hydrochloride 2 mg oral capsule (5 sources) Opioid Agonist Start: 08-14-2019 End: 10-01-2024 Loperamide (Imodium A-D) 2 mg capsule Discontinued 2 mg PO Q4H as needed August 14, 2019 12:00am October 01, 2024 4:00pm administer after each loose stool until symptoms controlled; do not exceed 8 mg per 24 hrs omeprazole 20 mg delayed release oral capsule (6 sources) Proton Pump Inhibitor Start: 06-02-2017 End: 08-14-2019 take 1 capsule by mouth twice daily Omeprazole 20 MG capsule Discontinued 20 mg PO TWICE A DAY June 02, 2017 1:00am August 14, 2019 5:28pm psyllium 520 mg oral capsule (7 sources) Start: 10-01-2024 End: 10-07-2024 Psyllium Husk (Daily Fiber) 0.52 gram capsule Discontinued 1.04 g PO TWICE A DAY October 01, 2024 12:00am October 07, 2024 11:10am Start: 08-14-2019 End: 10-01-2024 Psyllium Husk (Fiber (Psylli um Husk)) 0.4 gram capsule Discontinued 0.4 g PO DAILY August 14, 2019 12:00am October 01, 2024 3:59pm quinapril 20 mg oral tablet (15 sources) Angiotensin Converting Enzyme Inhibitor Start: 06-18-2017 End: 10-01-2024 take 1 tablet by mouth twice daily Quinapril 20 MG tablet Discontinued 20 mg PO TWICE A DAY June 18, 2017 11:37am October 01, 2024 4:00pm Start: 06-15-2017 End: 06-18-2017 take 1 tablet by mouth once daily Quinapril 20 MG tablet Discontinued 20 mg PO daily June 15, 2017 12:47pm June 18, 2017 11:39am Start: 06-02-2017 End: 06-15-2017 take 1 tablet by mouth twice daily Quinapril 20 MG tablet Discontinued 20 mg PO TWICE A DAY June 02, 2017 1:00am June 15, 2017 12:47pm Problems Problem Classification Problem Date Documented Date Episodic/Chronic Aortic; peripheral; and visceral artery aneurysms (7 sources) Abdominal aortic aneurysm; Translations: [Abdominal aortic aneurysm (AAA)] 06-15-2017 Chronic Comment on above: 5.4cm in diameter an d 9.6cm length CT of Abdomen 06/02/17 1.4cm May 2017 Cardiac dysrhythmias (10 sources) Sinus bradycardia; Translations: [Bradycardia, unspecified] Onset: 10-07-2024 06-15-2017 Episodic Chronic kidney disease (4 sources) Chronic kidney disease stage 3; Translations: [Stage 3 chronic kidney disease] 10-01-2024 Chronic Chronic kidney disease (1 source) Chronic kidney disease; Translations: [Chronic kidney disease, stage 3 unspecified] Onset: 10-07-2024 Conduction disorders (3 sources) Left bundle branch block; Translations: [Left bundle-branch block, unspecified] Onset: 10-07-2024 10-01-2024 Chronic Diabetes mellitus without complication (2 sources) Impaired fasting glycemia; Translations: [Impaired fasting glucose] 10-01-2024 Episodic Disorders of lipid metabolism (12 sources) Hyperlipidemia; Translations: [Hyperlipidemia, unspecified] Onset: 10-07-2024 06-15-2017 Chronic Esophageal disorders (1 source) 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; Translations: [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] Onset: 04-03-2024 Chronic Essential hypertension (10 sources) Hypertensive disorder; Translations: [Essential (primary) hypertension] Onset: 10-07-2024 06-15-2017 Chronic Heart valve disorders (6 sources) Mitral valve regurgitation; Translations: [Nonrheumatic mitral (valve) insufficiency] Onset: 10-07-2024 10-07-2024 Chronic Other connective tissue disease (2 sources) Monoparesis - leg; Translations: [Other symptoms and signs involving the musculoskeletal system] 10-01-2024 Episodic Other lower respiratory disease (4 sources) Dyspnea on exertion; Translations: [Other forms of dyspnea] 10-07-2024 Episodic Other lower respiratory disease (2 sources) Other forms of dyspnea; Translations: [Other forms of dyspnea] Onset: 10-11-2024 Episodic Other nutritional; endocrine; and metabolic disorders (4 sources) Obesity; Translations: [Obesity, unspecified] 10-07-2024 Chronic Other nutritional; endocrine; and metabolic disorders (1 source) Obesity, unspecified; Translations: [Obesity, unspecified] Onset: 10-07-2024 Chronic Residual codes; unclassified (2 sources) History of great vessel repair; Translations: [Other specified postprocedural states] 10-01-2024 Episodic Comment on above: 07/2017:Open with ao rta tube graft, 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 Residual codes; unclassified (4 sources) History of repair of aneurysm of abdominal aorta; Translations: [Other specified postprocedural states] 10-07-2024 Episodic Residual codes; unclassified (1 source) Other specified postprocedural states; Translations: [Other specified postprocedural states] Onset: 10-07-2024 Episodic Results Test Name Value Interpretation Reference Range Facility Anion gap in Serum or Plasma Ordered By: Gurpreet Aggawral on 10-07-2024 Anion gap [Moles/Vol] 13 mmol/L 5-15 [facility] BUN/creatinine ratioOrdered By: Gurpreet Aggarwal on 10-07-2024 Urea nitrogen/Creatinine [Mass ratio] 17.4 mg/mg 10-20 [facility] Bilirubin, totalOrdered By: Gurpreet Aggarwal on 10-07-2024 Bilirubin [Mass/Vol] 0.39 mg/dL 0.00-1.[address] [facility] Carbon dioxide, total [Moles /volume] in Central venous bloodOrdered By: Gurpreet Aggarwal on 10-07-2024 CO2 [Moles/Vol] 21.6 mmol/L 21.0-32.0 [facility] Cardiology Visit Reporton Cardiology Visit Report [facility] [place] [facility] [address] [place] [address] OFFICE VISIT Date of Service: 10/07/24 MR#: [id number] Acct: [id number] Name: YANICK VAUGHN Rep #: [id number] : 1940 Provider: Dr. Gurpreet Aggarwal MD Age/Sex: 83/M Location: [facility] [place] Status: Signed HPI HPI History of Present Illness Details: This pleasant gentleman is here to reestablish care with us. He has a past medical history significant for mitral valve regurgitation, abdominal aortic aneurysm status post repair, hypertension, dyslipidemia and obesity. Patient denies any chest pains either at rest or with exertion. Over the last 2 to 3 months, he has been getting increasingly short of breath with exertion. Denies any orthopnea or PND. No ankle edema. Per patient, he cannot walk as much as he like because of his spinal stenosis. Denies any palpitations. He has no history of CVA or TIA. Denies any syncope or presyncope. No lightheadedness or dizziness. Intake Vital Signs 10/07/24 08:25 Height 5 ft 9 in Weight: 220 lb BMI 32.5 BP 139/77 H Blood Pressure Location Lt brachial Position Sitting Respiration 20 H Pulse 65 Pulse Source NIBP Intake Visit Reasons: ABN EKG (UNA) Unified Communications Engineer Required: No Accompanied by: Self Is patient in pain?: Yes (spinal stenosis with walking) Allergies cephalexin (From Keflex) Allergy (Verified 10/07/24 11:14) Rash Sulfa (Sulfonamide Antibiotics) Allergy (Verified 10/07/24 11:14) Rash adhesive tape Adverse Reaction (Unknown, Verified 10/07/24 11:14) Unknown chocolate flavor Adverse Reaction (Unknown, Verified 10/07/24 11:14) Unknown Medications ???Medication ???Instructions ???Recorded ???Confirmed ???Type aspirin 81 mg chewable tablet 81 mg PO 06/02/17 10/07/24 History fenofibrate nanocrystallized 145 145 mg PO DAILY 06/02/17 10/07/24 History mg tablet hydrochlorothiazide 25 mg tablet 25 mg PO DAILY 06/02/17 10/07/24 H istory kqkizkcs-mfti-sto-folic acid 18 1 ea PO DAILY 06/02/17 10/07/24 Hi story mg-0.4 mg tablet tamsulosin 0.4 mg capsule 1 tab PO BID 06/02/17 10/07/24 His tory cyclobenzaprine 10 mg tablet 5 mg PO TID PRN 06/15/17 10/07/24 History magnesium oxide 400 mg PO QDAY 06/15/17 10/07/24 H istory metoprolol tartrate 100 mg tablet 100 mg PO BID 06/18/17 10/07/24 H istory doxazosin 4 mg tablet 4 mg PO DAILY 08/14/19 10/07/24 Hi story amlodipine 10 mg tablet 10 mg PO QDAY 10/01/24 10/07/24 Hi story cholecalciferol (vitamin D3) 125 125 mcg PO QDAY 10/01/24 10/07/24 History mcg (5,000 unit) capsule lansoprazole 30 mg capsule,delayed mg PO 10/01/24 10/07/24 History release triamcinolone acetonide 0.1 % 1 applic topical BID PRN 10/01/24 10/07/24 History topical cream Ejection fraction %: 65 Have you fallen in the past year?: No PFSH Medical History Abdominal aortic aneurysm (AAA) Actinic keratosis Rojas esophagus BPH (benign prostatic hyperplasia) Bradycardia Chronic renal impairment CKD (chronic kidney disease) stage 3, GFR 30-59 ml/min Colon polyp Diverticulitis Essential hypertension GERD (gastroesophageal reflux disease) Hypercholesterolemia Hyperlipidemia Hypertension Hypomagnesemia Impaired fasting glucose LBBB (left bundle branch block) Left leg weakness Low back pain Normocytic anemia Obesity Palpitations Renal artery aneurysm Sciatica Sinus bradycardia Testicular seminoma Surgical History History of aortic aneurysm repair History of cataract extraction History of cholecystectomy History of orchiectomy Hx of appendectomy Family History Father Heart disease Myocardial infarction, Onset Age: 64 CHF (congestive heart failure) Mother COPD (chronic obstructive pulmonary disease) Cancer Emphysema, unspecified Brother COPD (chronic obstructive pulmonary disease) Cancer Emphysema, unspecified Social History Smoking Status: Former smoker alcohol intake: never substance use type: does not use caffeine: Yes what type of physical activity do you participate in: walking ROS Const Const: Positive for fatigue and weakness; Negative for headache(s) or weight gain ENT ENT: Negative for headache(s), dizziness, Nosebleed/epistaxis or balance problems Cardio Chest Pain: No Palpitations: Yes Edema: None Muscle aches with walking: None Resp Respiratory: Positive for SOB with activity; Negative for SOB at rest or SOB orthopnea SOB lying down GI GI: Negative nausea, vomiting or heartburn Musc Musc: Positive for joint pain (spinal (more content not included)... Normal [facility] Chloride assayOrdered By: Dane Aggarwal on 10-07-2024 Chloride [Moles/Vol] 104 mmol/L 98-[address] [facility] Comprehensive Metabolic Prof ilon 10-07-2024 Albumin [Mass/Vol] 3.9 g/dL Normal 3.4-4.8 [facility] Comment on above: Performed By: #### L [id number] #### [facility] [address] [place], [address] Albumin/Globulin [Mass ratio] 1.5 {ratio} Normal 0.9-2.4 [facility] Comment on above: Performed By: #### L [id number] #### [facility] [address] [place], [address] ALK PHOS 52 U/L Normal 40-129 [facility] Comment on above: Performed By: #### [id number] #### [facility] [address] [place], [address] ALT [Catalytic activity/Vol] 19 U/L Normal <=46 [facility] Comment on above: Performed By: #### [id number] #### [facility] [address] [place], [address] AST [Catalytic activity/Vol] 22 U/L Normal <=37 [facility] Comment on above: Performed By: #### [id number] #### [facility] [address] [place], [address] Bilirubin [Mass/Vol] 0.39 mg/dL Normal 0.00-1.[address] [facility] Comment on above: Performed By: #### L [id number] #### [facility] [address] [place], [address] BUN/CRE 17.4 RATIO Normal 10-20 [facility] Comment on above: Performed By: #### [id number] #### [facility] [address] [place], [address] Calcium [Mass/Vol] 9.5 mg/dL Normal 7.6-11.0 [facility] Comment on above: Performed By: #### [id number] #### [facility] [address] [place], [address] Chloride [Moles/Vol] 104 mmol/L Normal 98-[address] [facility] Comment on above: Performed By: #### [id number] #### [facility] [address] [place], [address] CO2 [Moles/Vol] 21.6 mmol/L Normal 21.0-32.0 [facility] Comment on above: Performed By: #### [id number] #### [facility] [address] [place], [address] Creatinine [Mass/Vol] 2.15 mg/dL High 0.70-1.20 [facility] Comment on above: Performed By: #### L [id number] #### [facility] [address] [place], [address] GAP 13 Normal 5-15 [facility] Comment on above: Performed By: #### L [id number] #### [facility] [address] [place], [address] GFR/1.73 sq M.predicted among non-blacks MDRD (S/P/Bld) [Vol rate/Area] 30 mL/min/{1.73_m2} Low >60 [facility] Comment on above: Result Comment: mL/m in/1.73m2 CKD-EPI Creatinine Equation (2020) Performed By: #### L [id number] #### [facility] [address] [place], [address] Globulin (S) [Mass/Vol] 2.6 g/dL Normal 2.2-4.2 [facility] Comment on above: Performed By: #### [id number] #### [facility] [address] [place], [address] Glucose [Mass/Vol] 206 mg/dL High 70-99 [facility] Comment on above: Performed By: #### [id number] #### [facility] [address] [place], [address] Potassium [Moles/Vol] 4.5 mmol/L Normal 3.3-5.1 [facility] Comment on above: Performed By: #### L [id number] #### [facility] [address] [place], [address] Sodium [Moles/Vol] 138 mmol/L Normal 133-145 [facility] Comment on above: Performed By: #### [id number] #### [facility] [address] [place], [address] T PROT 6.5 g/dL Normal 5.9-8.4 [facility] Comment on above: Performed By: #### L [id number] #### [facility] [address] [place], [address] Urea nitrogen [Mass/Vol] 37 mg/dL High 4-19 [facility] Comment on above: Performed By: #### L [id number] #### [facility] [address] [place], [address] Glomerular filtration rate ( GFR) estimation/1.73 sq m using serum, plasma, or whole bOrdered By: Gurpreet Aggarwal on 10-07-2024 GFR/1.73 sq M.predicted among non-blacks MDRD (S/P/Bld) [Vol rate/Area] 30 mL/min/{1.73_m2} Low >60 [facility] Comment on above: mL/min/1.73m2 CKD-EP I Creatinine Equation (2020) Laboratory - Chemistry and C hemistry - challengeOrdered By: Gurpreet Aggarwal on 10-07-2024 AST [Catalytic activity/Vol] 22 U/L <38 [facility] Potassium measurement (mass/ volume)Ordered By: Gurpreet Aggarwal on 10-07-2024 Potassium (Unsp spec) [Mass/Vol] 4.5 mmol/L 3.3-5.1 [facility] Serum creatinine measurement (mass/volume)Ordered By: Gurpreet Aggarwal on 10-07-2024 Creatinine [Mass/Vol] 2.15 mg/dL High 0.70-1.20 [facility] Serum globulin measurementOr dered By: Gurpreet Aggarwal on 10-07-2024 Globulin (S) [Mass/Vol] 2.6 g/dL 2.2-4.2 [facility] Serum glucose measurement (m ass/volume)Ordered By: Gurpreet Aggarwal on 10-07-2024 Glucose [Mass/Vol] 206 mg/dL High 70-99 [facility] Serum or plasma alanine weinberg otransferase (ALT) measurementOrdered By: Gurpreet Aggarwal on 10-07-2024 ALT [Catalytic activity/Vol] 19 U/L <47 [facility] Serum or plasma albumin adelso urement (mass/volume)Ordered By: Gurpreet Aggarwal on 10-07-2024 Albumin [Mass/Vol] 3.9 g/dL 3.4-4.8 [facility] Serum or plasma albumin/glob ulin mass ratioOrdered By: [facility] on 10-07-2024 Albumin/Globulin [Mass ratio] 1.5 {ratio} 0.9-2.4 [facility] Serum or plasma alkaline adalgisa sphatase measurementOrdered By: [facility] on 10-07-2024 ALP [Catalytic activity/Vol] 52 U/L 40-129 [facility] Serum or plasma calcium adelso urement (mass/volume)Ordered By: [facility] on 10-07-2024 Calcium [Mass/Vol] 9.5 mg/dL 7.6-11.0 [facility] Serum or plasma urea nitroge n measurement (mass/volume)Ordered By: [facility] on 10-07-2024 Urea nitrogen [Mass/Vol] 37 mg/dL High 4-19 [facility] Sodium levelOrdered By: [facility] on 10-07-2024 Sodium [Moles/Vol] 138 mmol/L 133-145 [facility] Total proteinOrdered By: [facility] on 10-07-2024 Protein [Mass/Vol] 6.5 g/dL 5.9-8.4 [facility] CBC W/Diff, Automatedon 02-25 Absolute Lymph 1.26 X10 3/uL Normal 0.83-4.51 [facility] Comment on above: Performed By: #### L 500.4050, L503.0105, L503.6030, L503.6550, L506.0250, L100.0100 #### [facility] Laboratory [address] [place], [address] Absolute Neut 4.1 X10 3/uL Normal 2.0-7.7 [facility] Comment on above: Performed By: #### L 500.4050, L503.0105, L503.6030, L503.6550, L506.0250, L100.0100 #### [facility] Laboratory [address] [place], [address] Basophils/100 WBC (Bld) 0.5 % Normal 0-1 [facility] Comment on above: Performed By: #### L 500.4050, L503.0105, L503.6030, L503.6550, L506.0250, L100.0100 #### [facility] Laboratory [address] [place], [address] Eosinophils/100 WBC (Bld) 2.3 % Normal 0-5 [facility] Comment on above: Performed By: #### L 500.4050, L503.0105, L503.6030, L503.6550, L506.0250, L100.0100 #### [facility] Laboratory [address] [place], [address] Erythrocyte distribution width (RBC) [Ratio] 12.9 % Normal 11.6-14.6 [facility] Comment on above: Performed By: #### L 500.4050, L503.0105, L503.6030, L503.6550, L506.0250, L100.0100 #### [facility] Laboratory [address] [place], [address] Hematocrit (Bld) [Volume fraction] 40.2 % Normal 40-54 [facility] Comment on above: Performed By: #### L 500.4050, L503.0105, L503.6030, L503.6550, L506.0250, L100.0100 #### [facility] Laboratory [address] [place], [address] Hemoglobin (Bld) [Mass/Vol] 13.5 g/dL Normal 13.0-16.5 [facility] Comment on above: Performed By: #### L 500.4050, L503.0105, L503.6030, L503.6550, L506.0250, L100.0100 #### [facility] Laboratory [address] [place], [address] IG% 0.300 Normal 0.0-0.9 [facility] Comment on above: Result Comment: IG% - Immature Granulocytes (promyelocytes, myelocytes and metamyelocytes) > 1% indicates that a LEFT SHIFT is Present. Performed By: #### L 500.4050, L503.0105, L503.6030, L503.6550, L506.0250, L100.0100 #### [facility] Laboratory [address] [place], [address] Lymphocytes/100 WBC (Bld) 21.1 % Normal 19-41 [facility] Comment on above: Performed By: #### L 500.4050, L503.0105, L503.6030, L503.6550, L506.0250, L100.0100 #### [facility] Laboratory [address] [place], [address] MCH (RBC) [Entitic mass] 31.5 pg Normal 27.0-32.0 [facility] Comment on above: Performed By: #### L 500.4050, L503.0105, L503.6030, L503.6550, L506.0250, L100.0100 #### [facility] Laboratory [address] [place], [address] MCHC (RBC) [Mass/Vol] 33.6 g/dL Normal 32-36 [facility] Comment on above: Performed By: #### L 500.4050, L503.0105, L503.6030, L503.6550, L506.0250, L100.0100 #### [facility] Laboratory [address] [place], [address] MCV (RBC) [Entitic vol] 93.7 fL Normal 80-94 [facility] Comment on above: Performed By: #### L 500.4050, L503.0105, L503.6030, L503.6550, L506.0250, L100.0100 #### [facility] Laboratory [address] [place], [address] Monocytes/100 WBC (Bld) 7.6 % Normal 0-10 [facility] Comment on above: Performed By: #### L 500.4050, L503.0105, L503.6030, L503.6550, L506.0250, L100.0100 #### [facility] Laboratory [address] [place], [address] Neutrophils/100 WBC (Bld) 68.2 % Normal 47-70 [facility] Comment on above: Performed By: #### L 500.4050, L503.0105, L503.6030, L503.6550, L506.0250, L100.0100 #### [facility] Laboratory [address] [place], [address] Nucleated RBC (Bld) [#/Vol] 0 10*3/uL Normal 0-5 [facility] Comment on above: Performed By: #### L 500.4050, L503.0105, L503.6030, L503.6550, L506.0250, L100.0100 #### [facility] Laboratory [address] [place], [address] Platelet mean volume (Bld) [Entitic vol] 10.7 fL Normal 6.2-12.0 [facility] Comment on above: Performed By: #### L 500.4050, L503.0105, L503.6030, L503.6550, L506.0250, L100.0100 #### [facility] Laboratory [address] [place], [address] Platelets (Bld) [#/Vol] 216 10*3/uL Normal 150-450 [facility] Comment on above: Performed By: #### L 500.4050, L503.0105, L503.6030, L503.6550, L506.0250, L100.0100 #### [facility] Laboratory [address] [place], [address] RBC (Bld) [#/Vol] 4.29 10*6/uL Low 4.6-6.2 [facility] Comment on above: Performed By: #### L 500.4050, L503.0105, L503.6030, L503.6550, L506.0250, L100.0100 #### [facility] Laboratory [address] [place], [address] RDW SD 44.1 fl High 35.1-43.9 [facility] Comment on above: Performed By: #### L 500.4050, L503.0105, L503.6030, L503.6550, L506.0250, L100.0100 #### [facility] Laboratory [address] [place], [address] WBC (Bld) [#/Vol] 6.0 10*3/uL Normal 4.4-11.0 [facility] Comment on above: Performed By: #### L 500.4050, L503.0105, L503.6030, L503.6550, L506.0250, L100.0100 #### [facility] Laboratory [address] [place], [address] Comprehensive Metabolic Prof [facility] 03-14-2024 Albumin [Mass/Vol] 3.6 g/dL Normal 3.2-5.0 [facility] Comment on above: Order Comment: N Performed By: #### L 500.4050, L503.0105, L503.6030, L503.6550, L506.0250, L100.0100 #### [facility] Laboratory [address] [place], [address] Albumin/Globulin [Mass ratio] 1.0 {ratio} Normal 0.9-2.4 [facility] Comment on above: Order Comment: N Performed By: #### L 500.4050, L503.0105, L503.6030, L503.6550, L506.0250, L100.0100 #### [facility] Laboratory [address] [place], [address] ALK P 64 U/L Normal 45-117 [facility] Comment on above: Order Comment: N Performed By: #### L 500.4050, L503.0105, L503.6030, L503.6550, L506.0250, L100.0100 #### [facility] Laboratory [address] [place], [address] ALT [Catalytic activity/Vol] 27 U/L Normal 16-61 [facility] Comment on above: Order Comment: N Performed By: #### L 500.4050, L503.0105, L503.6030, L503.6550, L506.0250, L100.0100 #### [facility] Laboratory [address] [place], [address] AST [Catalytic activity/Vol] 16 U/L Normal 15-37 [facility] Comment on above: Order Comment: N Performed By: #### L 500.4050, L503.0105, L503.6030, L503.6550, L506.0250, L100.0100 #### [facility] Laboratory [address] [place], [address] Bilirubin [Mass/Vol] 0.60 mg/dL Normal 0.20-1.[address] [facility] Comment on above: Order Comment: N Result Comment: For patients on eltrombopag therapy, use of Dimension Leroy TBIL is not recommended. Performed By: #### L 500.4050, L503.0105, L503.6030, L503.6550, L506.0250, L100.0100 #### [facility] Laboratory [address] [place], [address] BUN/CRE 15.4 RATIO Normal 10-20 [facility] Comment on above: Order Comment: N Performed By: #### L 500.4050, L503.0105, L503.6030, L503.6550, L506.0250, L100.0100 #### [facility] Laboratory [address] [place], [address] CA,Total 9.4 mg/dL Normal 8.5-10.1 [facility] Comment on above: Order Comment: N Performed By: #### L 500.4050, L503.0105, L503.6030, L503.6550, L506.0250, L100.0100 #### [facility] Laboratory [address] [place], [address] Chloride [Moles/Vol] 104 mmol/L Normal 98-[address] [facility] Comment on above: Order Comment: N Performed By: #### L 500.4050, L503.0105, L503.6030, L503.6550, L506.0250, L100.0100 #### [facility] Laboratory [address] [place], [address] CO2 [Moles/Vol] 26.0 mmol/L Normal 21.0-32.0 [facility] Comment on above: Order Comment: N Performed By: #### L 500.4050, L503.0105, L503.6030, L503.6550, L506.0250, L100.0100 #### [facility] Laboratory [address] [place], [address] Creatinine [Mass/Vol] 2.46 mg/dL High 0.70-1.30 [facility] Comment on above: Order Comment: N Result Comment: The validity of the calculated GFR GFRAA in patients over 70 years has not been determined. Clinical correlation is essential. Performed By: #### L 500.4050, L503.0105, L503.6030, L503.6550, L506.0250, L100.0100 #### [facility] Laboratory [address] [place], [address] EST GFR - AA 33 mL/min Low >60 [facility] Comment on above: Order Comment: N Result Comment: Afri can Serbian GFR Calc Performed By: #### L 500.4050, L503.0105, L503.6030, L503.6550, L506.0250, L100.0100 #### [facility] Laboratory [address] [place], [address] GAP 7 Normal 5-15 [facility] Comment on above: Order Comment: N Performed By: #### L 500.4050, L503.0105, L503.6030, L503.6550, L506.0250, L100.0100 #### [facility] Laboratory [address] [place], [address] GFR/1.73 sq M.predicted among non-blacks MDRD (S/P/Bld) [Vol rate/Area] 27 mL/min/{1.73_m2} Low >60 [facility] Comment on above: Order Comment: N Result Comment: Non- GFR Calc Performed By: #### L 500.4050, L503.0105, L503.6030, L503.6550, L506.0250, L100.0100 #### [facility] Laboratory [address] [place], [address] Globulin (S) [Mass/Vol] 3.6 g/dL Normal 2.2-4.2 [facility] Comment on above: Order Comment: N Performed By: #### L 500.4050, L503.0105, L503.6030, L503.6550, L506.0250, L100.0100 #### [facility] Laboratory [address] [place], [address] Glucose [Mass/Vol] 153 mg/dL High 74-106 [facility] Comment on above: Order Comment: N Result Comment: Fast ing Glucose result greater than or equal to 126 mg/dL suggests DIABETES MELLITUS per A.D.A. criteria. Performed By: #### L 500.4050, L503.0105, L503.6030, L503.6550, L506.0250, L100.0100 #### [facility] Laboratory [address] [place], [address] Potassium [Moles/Vol] 4.0 mmol/L Normal 3.5-5.1 [facility] Comment on above: Order Comment: N Performed By: #### L 500.4050, L503.0105, L503.6030, L503.6550, L506.0250, L100.0100 #### [facility] Laboratory [address] [place], [address] Sodium [Moles/Vol] 137 mmol/L Normal 136-145 [facility] Comment on above: Order Comment: N Performed By: #### L 500.4050, L503.0105, L503.6030, L503.6550, L506.0250, L100.0100 #### [facility] Laboratory [address] [place], [address] T PROT 7.2 g/dL Normal 6.4-8.2 [facility] Comment on above: Order Comment: N Performed By: #### L 500.4050, L503.0105, L503.6030, L503.6550, L506.0250, L100.0100 #### [facility] Laboratory [address] [place], [address] Urea nitrogen [Mass/Vol] 38 mg/dL High - [facility] Comment on above: Order Comment: N Performed By: #### L 500.4050, L503.0105, L503.6030, L503.6550, L506.0250, L100.0100 #### [facility] Laboratory [address] [place], [address] Ferritinon 03-14-2024 Ferritin [Mass/Vol] 153 ng/mL Normal 26-388 [facility] Comment on above: Order Comment: N Performed By: #### L 500.4050, L503.0105, L503.6030, L503.6550, L506.0250, L100.0100 #### [facility] Laboratory [address] [place], [address] Folates, (Folic Acid)on 02-25 FOLATES 27.80 ng/mL Normal 3.1-55.4 [facility] Comment on above: Order Comment: N Performed By: #### L 500.4050, L503.0105, L503.6030, L503.6550, L506.0250, L100.0100 #### [facility] Laboratory [address] [place], [address] Iron+Iron Binding Capacityon 03-14-2024 Iron [Mass/Vol] 80 ug/dL Normal 65-175 [facility] Comment on above: Order Comment: N Performed By: #### L 500.4050, L503.0105, L503.6030, L503.6550, L506.0250, L100.0100 #### [facility] Laboratory [address] [place], [address] IRON SATURATION 21.3 Normal 15.0-55.0 [facility] Comment on above: Order Comment: N Performed By: #### L 500.4050, L503.0105, L503.6030, L503.6550, L506.0250, L100.0100 #### [facility] Laboratory [address] [place], [address] TIBC 375 ug/dL Normal 250-450 [facility] Comment on above: Order Comment: N Performed By: #### L 500.4050, L503.0105, L503.6030, L503.6550, L506.0250, L100.0100 #### [facility] Laboratory [address] [place], [address] Vitamin B12on 03-14-2024 Cobalamin (Vitamin B12) [Mass/Vol] 475 pg/mL Normal 211-911 [facility] Comment on above: Performed By: #### L 500.4050, L503.0105, L503.6030, L503.6550, L506.0250, L100.0100 #### [facility] Laboratory [address] [place], [address] Absolute lymphocyte countOrd ered By: Suzecesar Barboza on 09-17-2023 Lymphocytes Auto (Unsp spec) [#/Vol] 0.93 10*3/uL 0.83-4.51 [facility] Automated lymphocyte count a s percentage of total leukocytesOrdered By: Suze Barboza on 09-17-2023 Lymphocytes/100 WBC Auto (Unsp spec) 16.6 % 19-41 [facility] Basophil percentageOrdered B y: Suze Odonnellgar on 09-17-2023 Basophils/100 WBC (Bld) 0.7 % 0-1 [facility] Bilirubin [Mass/Vol] 0.60 mg/dL 0.20-1.[address] [facility] Comment on above: For patients on eltr ombopag therapy, use of Dimension Leroy TBIL is not recommended. Chloride [Moles/Vol] 107 mmol/L 98-[address] [facility] Cholesterol [Mass/Vol] 180 mg/dL <200 [facility] Comment on above: <200 mg/dL Desirable 200-240 mg/dL Borderline >240 mg/dL High Risk Eosinophils/100 WBC (Bld) 2.9 % 0-5 [facility] Glucose [Mass/Vol] 156 mg/dL 74-106 [facility] Comment on above: Fasting Glucose resu lt greater than or equal to 126 mg/dL suggests DIABETES MELLITUS per A.D.A. criteria. Hemoglobin (Bld) [Mass/Vol] 12.9 g/dL 13.0-16.5 [facility] Monocytes/100 WBC (Bld) 7.5 % 0-10 [facility] Neutrophils (Bld) [#/Vol] 4.0 10*3/uL 2.0-7.7 [facility] Neutrophils/100 WBC (Bld) 71.9 % 47-70 [facility] Potassium [Moles/Vol] 4.4 mmol/L 3.5-5.1 [facility] Protein [Mass/Vol] 6.9 g/dL 6.4-8.2 [facility] Sodium [Moles/Vol] 140 mmol/L 136-145 [facility] Triglyceride [Mass/Vol] 265 mg/dL <199 [facility] Comment on above: The drugs N-Acetylcy steine and Metamizole may falsely depress this assay.Serum Triglycerides Reference Interval Normal <150 mg/dL Borderline high 150 - 199 mg/dL High 200 - 499 mg/dL Very High > or = 500 mg/dL WBC (Bld) [#/Vol] 5.6 10*3/uL 4.4-11.0 [facility] Determination of erythrocyte mean corpuscular volume (MCV)Ordered By: Suze Barboza on 09-17-2023 MCV (RBC) [Entitic vol] 93.3 fL 80-94 [facility] Erythrocyte distribution wid th ratioOrdered By: [facility] Erythrocyte distribution width (RBC) [Ratio] 13.1 % 11.6-14.6 [facility] Erythrocyte distribution wid th standard deviationOrdered By: [facility] on 09-17-2023 Erythrocyte distribution width (RBC) [Entitic vol] 44.5 fL 35.1-43.9 [facility] Hematocrit Auto (Bld) [Volum e fraction]Ordered By: Suze Una on 09-17-2023 Hematocrit (Bld) [Volume fraction] 39.3 % 40-54 [facility] Immature granulocytes/100 WB C Auto (Bld)Ordered By: Suzecesar Barboza on 09-17-2023 Immature granulocytes/100 WBC (Bld) 0.400 % 0.0-0.9 [facility] Comment on above: IG% - Immature Granu locytes (promyelocytes, myelocytes and metamyelocytes) > 1% indicates that a LEFT SHIFT is Present. Laboratory - Chemistry and C hemistry - challengeOrdered By: Suze Barboza on 09-17-2023 Albumin/Globulin [Mass ratio] 1.0 {ratio} 0.9-2.4 [facility] ALP [Catalytic activity/Vol] 53 U/L 45-117 [facility] ALT [Catalytic activity/Vol] 26 U/L 16-61 [facility] Cholesterol in HDL [Mass/Vol] 31 mg/dL >40 [facility] Comment on above: The drugs N-Acetylcy steine and Metamizole may falsely depress this assay. Reference Range HDL <40 mg/dL Low HDL Cholesterol HDL >or= 60 mg/dL High HDL Cholesterol Cholesterol in LDL [Mass/Vol] 96 mg/dL 0-130 [facility] CO2 [Moles/Vol] 27.0 mmol/L 21.0-32.0 [facility] Globulin (S) [Mass/Vol] 3.4 g/dL 2.2-4.2 [facility] Magnesium [Mass/Vol] 1.9 mg/dL 1.6-2.[address] [facility] Urea nitrogen/Creatinine [Mass ratio] 18.9 mg/mg 10-20 [facility] Laboratory - Hematology and Cell countsOrdered By: Suze Barboza on 09-17-2023 MCH (RBC) [Entitic mass] 30.6 pg 27.0-32.0 [facility] MCHC (RBC) [Mass/Vol] 32.8 g/dL 32-36 [facility] Nucleated RBC/100 WBC (Bld) [Ratio] 0 % 0-5 [facility] Platelet mean volume (Bld) [Entitic vol] 10.6 fL 6.2-12.0 [facility] Platelets (Bld) [#/Vol] 216 10*3/uL 150-450 [facility] No Panel InformationOrdered By: Suze Barboza on 09-17-2023 Estimated GFR (MDRD) Amer 36 mL/min >60 [facility] Comment on above: GFR Calc Estimated GFR (MDRD) Non-Af Amer 30 mL/min >60 [facility] Comment on above: Non- GFR Calc Prostate Specific Antigen Screen 0.32 ng/mL 0.00-4.00 [facility] Comment on above: This test was perfor med using the TPSA assay method for the[facility]. Values obtained with differentassay methods cannot be used interchangably.When changing PSA assays in the course of monitoring apatient, additional sequential testing should be carriedout to confirm baseline values. Vitamin D 25-Hydroxy 48.6 ng/mL [facility] Comment on above: Vitamin D 25(OH) Sta tus Range Deficiency <20 ng/mL (50nmol/L) Insufficiency 20 - 30 ng/mL (50 - 75 nmol/L) Sufficiency 30 - 100 ng/mL (75 - 250 nmol/L) Toxicity >100 ng/mL (>250 nmol/L) VLDL Cholesterol 53 mg/dL 5-40 [facility] RBC Auto (Bld) [#/Vol]Ordere d By: Suze Barboza on 09-17-2023 RBC (Bld) [#/Vol] 4.21 10*6/uL 4.6-6.2 [facility] Serum or plasma calcium adelso urement (mass/volume)Ordered By: Suze Barboza on 09-17-2023 Calcium [Mass/Vol] 8.8 mg/dL 8.5-10.1 [facility] Serum or plasma creatinine m easurement (mass/volume)Ordered By: Suze Barboza on 09-17-2023 Creatinine [Mass/Vol] 2.28 mg/dL 0.70-1.30 [facility] Comment on above: The validity of the calculated GFR & GFRAA in patients over 70 years has not been determined. Clinical correlation is essential. Serum or plasma urea nitroge n measurement (mass/volume)Ordered By: Suze Barboza on 09-17-2023 Urea nitrogen [Mass/Vol] 43 mg/dL 7-18 [facility] Thin prep Papanicolaou smear with manual screeningOrdered By: Suze Barboza on 09-17-2023 Thin prep Papanicolaou smear with manual screening 3.5 g/dL 3.2-5.0 [facility] Thin prep Papanicolaou smear with manual screening 18 U/L 15-37 [facility] Thin prep Papanicolaou smear with manual screening 6 5-15 [facility] Basophil percentageOrdered B y: Mandy Billings on 08-22-2022 Bilirubin [Mass/Vol] 0.50 mg/dL 0.20-1.[address] [facility] Comment on above: For patients on eltr ombopag therapy, use of Dimension Leroy TBIL is not recommended. Chloride [Moles/Vol] 108 mmol/L 98-[address] [facility] Cholesterol [Mass/Vol] 162 mg/dL <200 [facility] Comment on above: <200 mg/dL Desirable 200-240 mg/dL Borderline >240 mg/dL High Risk Glucose [Mass/Vol] 141 mg/dL 74-106 [facility] Comment on above: Fasting Glucose resu lt greater than or equal to 126 mg/dL suggests DIABETES MELLITUS per A.D.A. criteria. Potassium [Moles/Vol] 4.0 mmol/L 3.5-5.1 [facility] Protein [Mass/Vol] 7.1 g/dL 6.4-8.2 [facility] Sodium [Moles/Vol] 138 mmol/L 136-145 [facility] Triglyceride [Mass/Vol] 214 mg/dL <199 [facility] Comment on above: The drugs N-Acetylcy steine and Metamizole may falsely depress this assay.Serum Triglycerides Reference Interval Normal <150 mg/dL Borderline high 150 - 199 mg/dL High 200 - 499 mg/dL Very High > or = 500 mg/dL Laboratory - Chemistry and C hemistry - challengeOrdered By: Mandy Billings on 08-22-2022 ALP [Catalytic activity/Vol] 67 U/L 45-117 [facility] ALT [Catalytic activity/Vol] 25 U/L 16-61 [facility] CO2 [Moles/Vol] 24.0 mmol/L 21.0-32.0 [facility] Cobalamin (Vitamin B12) [Mass/Vol] 428 pg/mL 211-911 [facility] Globulin (S) [Mass/Vol] 3.7 g/dL 2.2-4.2 [facility] Urea nitrogen/Creatinine [Mass ratio] 19.0 mg/mg 10-20 [facility] No Panel InformationOrdered By: Mandy Billings on 08-22-2022 Estimated GFR (MDRD) Amer 42 mL/min >60 [facility] Comment on above: GFR Calc Estimated GFR (MDRD) Non-Af Amer 34 mL/min >60 [facility] Comment on above: Non- GFR Calc Prostate Specific Antigen Screen 0.26 ng/mL 0.00-4.00 [facility] Comment on above: This test was perfor med using the TPSA assay method for the[employer] chemistry system. Values obtained with differentassay methods cannot be used interchangably.When changing PSA assays in the course of monitoring apatient, additional sequential testing should be carriedout to confirm baseline values. Serum or plasma albumin adelso urement (mass/volume)Ordered By: Mandy Billings on 08-22-2022 Albumin [Mass/Vol] 3.4 g/dL 3.2-5.0 [facility] Serum or plasma albumin/glob ulin mass ratioOrdered By: Mandy Billings on 08-22-2022 Albumin/Globulin [Mass ratio] 0.9 {ratio} 0.9-2.4 [facility] Serum or plasma calcitriol m easurement (mass/volume)Ordered By: Mandy Billings on 08-22-2022 1,25-dihydroxyvitamin D3 [Mass/Vol] 23.3 pg/mL 24.8-81.5 [facility] Comment on above: Performed at: [facility] [address] [id number] Director: Demetrio Griffin MD, Phone: [phone] Serum or plasma calcium adelso urement (mass/volume)Ordered By: Mandy Billings on 08-22-2022 Calcium [Mass/Vol] 8.9 mg/dL 8.5-10.1 [facility] Serum or plasma cholesterol in HDL measurement (mass/volume)Ordered By: Mandy Billings on 08-22-2022 Cholesterol in HDL [Mass/Vol] 34 mg/dL >40 [facility] Comment on above: The drugs N-Acetylcy steine and Metamizole may falsely depress this assay. Reference Range HDL <40 mg/dL Low HDL Cholesterol HDL >or= 60 mg/dL High HDL Cholesterol Serum or plasma cholesterol in VLDL measurement (mass/volume)Ordered By: Mandy Billings on 08-22-2022 Cholesterol in VLDL [Mass/Vol] 43 mg/dL 5-40 [facility] Serum or plasma creatinine m easurement (mass/volume)Ordered By: Mandy Billings on 08-22-2022 Creatinine [Mass/Vol] 2.00 mg/dL 0.70-1.30 [facility] Comment on above: The validity of the calculated GFR & GFRAA in patients over 70 years has not been determined. Clinical correlation is essential. Serum or plasma low density lipoprotein (LDL) cholesterol measurement (mass/volume)Ordered By: Mandy Billings on 08-22-2022 Cholesterol in LDL [Mass/Vol] 85 mg/dL 0-130 [facility] Serum or plasma urea nitroge n measurement (mass/volume)Ordered By: Mandy Billings on 08-22-2022 Urea nitrogen [Mass/Vol] 38 mg/dL 7-18 [facility] Thin prep Papanicolaou smear with manual screeningOrdered By: Mandy Billings on 08-22-2022 Thin prep Papanicolaou smear with manual screening 20 U/L 15-37 [facility] Thin prep Papanicolaou smear with manual screening 6 5-15 [facility] Thin prep Papanicolaou smear with manual screening 430.0 mg/L NO RANGE EST. [facility] Whole blood hemoglobin A1c/t otal hemoglobin ratio (mass fraction)Ordered By: Mandy Billings on 08-22-2022 HbA1c (Bld) [Mass fraction] 6.3 % 3.8-5.6 [facility] Comment on above: Normal < 5.7 % Predi abetic 5.7 - 6.4 % Diabetic >or= 6.5 % Please note range changes. [facility] Physician Progress Noteon 05-04-2021 [facility] Physician Progress Note Chief Complaint F/u Renal artery duplex 04/29/2021, S/P AAA open repair08/30/17. No complaints History of Present Illness had Covid 3 mos ago. had vaccine 9 mos ago. Had blood work at [place] showing improving renal function. no new complaints from the open AAA repair. Review of Systems General: No weight gain, No weight loss Psychiatric: Not reviewed Skin: Not reviewed Head: No Neck Pain, No Headache Eyes: No Vision changes Last Eye Exam: Not reviewed Ears: Not reviewed Nose: Not reviewed Age of First Menses: Not reviewed Age of Menopause(last menses): Not reviewed Mouth/Throat: Not reviewed Neck: Not reviewed Breasts: Not reviewed Cardiovascular: No Chest pain Respiratory: Not reviewed Gastrointestinal: Diarrhea , No Constipation, No Nausea, No Vomiting, No Abdominal Pain Gynecologic: Not reviewed Urinary: Not reviewed Vascular: No Calf Pain with Walking, No Leg Cramping Musculoskeletal: Not reviewed Neurologic: No Tingling, No Weakness, No Dizziness, No Numbness Hematologic: Not reviewed Endocrine: Not reviewed Physical Exam Vitals & Measurements Systolic Blood Pressure: 124 mmHg (05/04/21:32:00) Diastolic Blood Pressure: 75 mmHg (05/04/21:32:00) SpO2: 95 % (05/04/21:32:00) Peripheral Pulse Rate: 61 bpm (05/04/21:32:00) Mean Arterial Pressure: 91 mmHg (05/04/21:32:00) Height/Length Measured: 175 cm (05/04/21:32:) Weight Measured: 98 kg (05/04/21:32:00) Body Mass Index Measured: 32 kg/m2 (05/04/21:32:00) Weight Measured - lbs2: 217 lb (05/04/21:32:00) Height/Length Measured - in2: 69 in (05/04/21:32:00) Body Mass Index Measured English2: 32.04 kg/m2 (05/04/21:32:00) BSA: 2.19 m2 (05/04/21:32:00) Ht/Wt Measurement Refused by Patient?2: No (05/04/21:32:) Depression Screening Scores Initial Depression Screen Score: 0 (05/04/21:32:00) Fall Risk Assessment Is the patient ambulatory (mobile): Yes (05/04/21:32:00) Have you had a fall within the past: No (05/04/21:32:00) Have you had 2 or more falls in the past: No (05/04/21:32:00) HEENT: Unremarkable. Extraocular muscles intact. Normocephalic. Neck: Supple, no JVD, Chest: Clear breath sounds. Cardiac: Regular rate and rhythm Abdomen: Soft, nontender, Extremities: Range of motion good. Edema none. Pulses intact. Integumentary: No rash. No lesions. Neurologic: Cranial nerves intact. Motor function intact. Psych: oriented x 3. Mood and affect normal. Vascular: Arterial Exam - Right Arterial Exam-Left Artery Bruit Palpation Bruit Palpation Carotid _ _ _ _ Radial _ 2 _ 2 Femoral _ 2 _ 2 Popliteal _ 1 _ 1 Post Tibial _ 2 _ 2 Dorsalis Pedis _ _ _ _ Peroneal _ _ _ _ Tucker: 0=absent; 1+=barely palpable; 2+=normal; 3+=enlarged; 4+=aneurysmal; b=biphasic; m=mono Lab Results Last Months Labs No qualifying data available. Assessment/Plan 1. 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 The kidney size is stable and there is no atrophy. No other vascular insufficiency noted so we will plan to follow-up in 1 to 2 years with another ultrasound. His other regular physicians are monitoring his blood pressure and kidney function Ordered: AMB Ancillary Order - Abdominal Aorta, 05/04/2021, Order For Future Visit AMB Ancillary Order - Renal Artery, 05/04/2021, Order For Future Visit AMB Follow - Up Appt Amb, 05/04/2021 10:03:00 EST AMB Office/Outpt Est Pt Low MDM / 20-29 min 08530, 05/04/2021 10:03:00 EST, Aneurysm of left renal artery / History of AAA (abdominal aortic aneurysm) repair 2. History of AAA (abdominal aortic aneurysm) repair Z98.890 Ordered: AMB Ancillary Order - Abdominal Aorta, 05/04/2021, Order For Future Visit AMB Ancillary Order - Renal Artery, 05/04/2021, Order For Future Visit AMB Follow - Up Appt Amb, 05/04/2021 10:03:00 EST AMB Office/Outpt Est Pt Low MDM / 20-29 min [id number], 05/04/2021 10:03:00 EST, Aneurysm of left renal artery / History of AAA (abdominal aortic aneurysm) repair Problem List/Past Medical History Ongoing Aneurysm of left renal artery Borderline diabetes mellitus BPH (benign prostatic hyperplasia) Cancer, other - [place] CKD (chronic kidney disease), stage III COPD/Emphysema History of AAA (abdominal aortic aneurysm) repair Stage 3 chronic kidney disease Historical No qualifying data Procedure/Surgical History aortic aneurysm repair, open with aorta tube graft, 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: 08/30/17 cataract excision -both: 2006 Cholecystectomy, Laproscopic: 2004 Rt testicle removed: 1982 appendectomy: 1952 RIGHT testicle removed 1982 Appendectomy 1952 Cataract extraction Cholecystectomy 2004 Medications amLODIPine 2.5 mg oral tablet, 2.5 mg= 1 tabs, ORAL, DAILY WITH SUPPER Aspirin Low Dose 81 mg oral delayed release tablet, 81 mg= 1 tabs, ORAL, DAILY cyclobenzaprine 10 mg o (more content not included)... Normal [facility] Ambulatory Clinical Summaryo n 05-04-2021 Ambulatory Clinical Summary YANICK VAUGHN :1940 Visit Date:05/04/2021 Ambulatory Visit Instructions Your Diagnosis Aneurysm of left renal artery History of AAA (abdominal aortic aneurysm) repair Your Care Team Attending Physician - HATTIE HUNG, AMANDA Primary Care Physician - CHRIS NIX [phone] Procedures Performed aortic aneurysm repair, open with aorta tube graft, 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 (08/30/2017) cataract excision -both (2005) Cholecystectomy, Laproscopic (2004) Rt testicle removed (1982) appendectomy (1952) Appendectomy 1952 Cataract extraction Cholecystectomy 2004 RIGHT testicle removed 1982 Discharge Vitals Heart Rate (Peripheral) 61 Blood Pressure 124/75 Height 175 cm Weight 98 kg BMI 32 Systolic Blood Pressure: 124 mmHg (05/04/21 09:32:00) Diastolic Blood Pressure: 75 mmHg (05/04/21 09:32:00) SpO2: 95 % (05/04/21 09:32:00) Peripheral Pulse Rate: 61 bpm (05/04/21 09:32:00) Mean Arterial Pressure: 91 mmHg (05/04/21 09:32:00) Height/Length Measured: 175 cm (05/04/21 09:32:00) Weight Measured: 98 kg (05/04/21 09:32:00) Body Mass Index Measured: 32 kg/m2 (05/04/21 09:32:00) Weight Measured - lbs2: 217 lb (05/04/21 09:32:00) Height/Length Measured - in2: 69 in (05/04/21 09:32:00) Body Mass Index Measured English2: 32.04 kg/m2 (05/04/21 09:32:00) BSA: 2.19 m2 (05/04/21 09:32:00) Ht/Wt Measurement Refused by Patient?2: No (05/04/21 09:32:00) What to do next Scheduled Follow-Up Appointments No results Medications What How Much When Instructions Unchanged acetaminophen-oxycodone (Percocet 5/ 325 ([id number]) oral tablet) 1 Tabs Oral EVERY FOUR HOURS as needed for Moderate Pain Unchanged amLODIPine (amLODIPine 2.5 mg oral tablet) 1 Tabs Oral DAILY WITH EVENING MEAL Unchanged aspirin (Aspirin Low Dose 81 mg oral delayed release tablet) 1 Tabs Oral DAILY Unchanged cyclobenzaprine = Flexeril (cyclobenzaprine 10 mg oral tablet) 1 Tabs Oral TWICE A DAY as needed for for spasm Unchanged doxazosin (doxazosin 4 mg oral tablet) Oral DAILY Unchanged fenofibrate (fenofibrate 145 mg oral tablet) 145 Milligram Oral DAILY Unchanged hydrochlorothiazide = HydroDIURIL (hydrochlorothiazide 25 mg oral tablet) 25 Milligram Oral DAILY Unchanged lansoprazole (Prevacid) 30 Milligram Oral DAILY Unchanged magnesium oxide (magnesium oxide 250 mg oral tablet) 1 Tabs Oral TWICE A DAY Unchanged metoprolol (metoprolol tartrate 100 mg oral tablet) 100 Milligram Oral TWICE A DAY Unchanged multivitamin 1 Tabs Oral DAILY Unchanged multivitamin with minerals (PreserVision AREDS oral capsule) Oral DAILY Unchanged tamsulosin (tamsulosin 0.4 mg oral capsule) 0.4 Milligram Oral TWICE A DAY Allergies Adhesive tape allergy (SKIN PEELED) cephalexin (RASH) sulfa drugs (RASH) Problems Ongoing - Any problem that you are currently receiving treatment for. 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 Act FAST and Check for these signs: FACE Does the face look uneven? ARM Does one arm drift down? SPEECH Does their speech sound strange? TIME Call at any sign of stroke Heart Attack Signs Chest discomfort: Most heart attacks involve discomfort in the center of the chest and lasts more than a few minutes, or goes away and comes back. It can feel like uncomfortable pressure, squeezing, fullness or pain. Discomfort in upper body: Symptoms can include pain or discomfort in one or both arms, back, neck, jaw or stomach. Shortness of breath: With or without discomfort. Other signs: Breaking out in a cold sweat, nausea, or lightheaded. Remember, MINUTES DO MATTER. If you experience any of these heart attack warning signs, call --1 to get immediate medical attention! Normal [facility] ED NOTEon 02-22-2021 ED NOTE HNO ID: [id number] Author: Mandy Diaz, RN Service: Emergency Medicine Author Type: Registered Nurse Type: ED Notes Filed: 02/21/2021 10:12 PM Note Text: Ambulated patient around room. spo2 maintained 95 percent and HR 97. Patient denies any sob or cp Normal [facility] Bacteria Ur Culton Bacteria identified Cx Nom (U) CULTURE, URINE: No growth (<1,000 CFU/ml) Normal [facility] Comment on above: Performed By: #### 3 2693-4 #### [facility] CLIA [id number] [address] [place] [address] [place] CBC W Auto Differential pane l (Bld)on 02-21-2021 Basophils (Bld) [#/Vol] 10*3/uL Normal <0.11 [facility] Comment on above: Order Comment: Speci men Type: BLOOD SPECIMEN Performed By: #### 5 7021-8 #### [facility] [place] [facility] CLIA [id number] [address] [place] [address] [place] Basophils/100 WBC (Bld) 0.2 % Normal [facility] Comment on above: Order Comment: Speci men Type: BLOOD SPECIMEN Performed By: #### 5 7021-8 #### [facility] [place] [facility] CLIA [id number] [address] [place] [address] [place] Differential cell count method Nom (Bld) Auto Normal [facility] Comment on above: Order Comment: Speci men Type: BLOOD SPECIMEN Performed By: #### 5 7021-8 #### [facility] [place] [facility] CLIA [id number] [address] [place] [address] [place] Eosinophils (Bld) [#/Vol] 10*3/uL Normal <0.46 [facility] Comment on above: Order Comment: Speci men Type: BLOOD SPECIMEN Performed By: #### 5 7021-8 #### [facility] [place] [facility] CLIA [id number] [address] [facility] [address] [facility] Eosinophils/100 WBC (Bld) 0.2 % Normal [facility] Comment on above: Order Comment: Speci men Type: BLOOD SPECIMEN Performed By: #### 5 7021-8 #### [facility] [place] [facility] CLIA [id number] [address] [place] [address] [facility] Erythrocyte distribution width (RBC) [Ratio] 12.7 % Normal 11.5-15.0 [facility] Comment on above: Order Comment: Speci men Type: BLOOD SPECIMEN Performed By: #### 5 7021-8 #### [facility] [place] [facility] CLIA [id number] [address] [place] [address] [facility] [place] Hematocrit (Bld) [Volume fraction] 38.7 % Low 39.0-51.0 [facility] Comment on above: Order Comment: Speci men Type: BLOOD SPECIMEN Performed By: #### 5 7021-8 #### [facility] [place] [facility] CLIA [id number] [address] [facility] [address] [place] Hemoglobin (Bld) [Mass/Vol] 13.0 g/dL Normal 13.0-17.0 [facility] Comment on above: Order Comment: Speci men Type: BLOOD SPECIMEN Performed By: #### 5 7021-8 #### [facility] [place] [facility] CLIA [id number] [address] [facility] [place] [address] [place] Lymphocytes (Bld) [#/Vol] 0.43 10*3/uL Low 1.00-4.00 [facility] Comment on above: Order Comment: Speci men Type: BLOOD SPECIMEN Performed By: #### 5 7021-8 #### [facility] [place] [facility] CLIA [id number] [address] [place] [address] [facility] Lymphocytes/100 WBC (Bld) 10.3 % Normal [facility] Comment on above: Order Comment: Speci men Type: BLOOD SPECIMEN Performed By: #### 5 7021-8 #### [facility] [place] [facility] CLIA [id number] [address] [place] [address] [facility] MCH (RBC) [Entitic mass] 30.3 pg Normal 26.0-34.0 [facility] Comment on above: Order Comment: Speci men Type: BLOOD SPECIMEN Performed By: #### 5 7021-8 #### [facility] [place] [facility] CLIA [id number] [address] [place] [address] [place] MCHC (RBC) [Mass/Vol] 33.6 g/dL Normal 30.5-36.0 [facility] Comment on above: Order Comment: Speci men Type: BLOOD SPECIMEN Performed By: #### 5 7021-8 #### [facility] [place] [facility] CLIA [id number] [address] [place] [place], [place] [address] [place] [address] MCV (RBC) [Entitic vol] 90.2 fL Normal 80.0-100.0 [facility] Comment on above: Order Comment: Speci men Type: BLOOD SPECIMEN Performed By: #### 5 7021-8 #### [facility] [place] [facility] CLIA [id number] [address] [place] [address] [facility] [place] Monocytes (Bld) [#/Vol] 0.29 10*3/uL Normal <0.87 [facility] Comment on above: Order Comment: Speci men Type: BLOOD SPECIMEN Performed By: #### 5 7021-8 #### [facility] [place] [facility] CLIA [id number] [address] [facility] [address] [facility] [place] Monocytes/100 WBC (Bld) 7.0 % Normal [facility] Comment on above: Order Comment: Speci men Type: BLOOD SPECIMEN Performed By: #### 5 7021-8 #### [facility] [place] [facility] CLIA [id number] [address] [place] [address] [place] Neutrophils (Bld) [#/Vol] 3.42 10*3/uL Normal 1.45-7.50 [facility] Comment on above: Order Comment: Speci men Type: BLOOD SPECIMEN Performed By: #### 5 7021-8 #### [facility] [place] [facility] CLIA [id number] [address] [place] [address] [place] Neutrophils/100 WBC (Bld) 82.3 % Normal [facility] Comment on above: Order Comment: Speci men Type: BLOOD SPECIMEN Performed By: #### 5 7021-8 #### [facility] [place] [facility] CLIA [id number] [address] [place] [address] [place] Platelet mean volume (Bld) [Entitic vol] 9.9 fL Normal 9.0-12.7 [facility] Comment on above: Order Comment: Speci men Type: BLOOD SPECIMEN Performed By: #### 5 7021-8 #### [facility] [place] [facility] CLIA [id number] [address] [place] [address] [place] Platelets (Bld) [#/Vol] 150 10*3/uL Normal 150-400 [facility] Comment on above: Order Comment: Speci men Type: BLOOD SPECIMEN Performed By: #### 5 7021-8 #### [facility] [place] [facility] CLIA [id number] [address] [place] [address] [place] RBC (Bld) [#/Vol] 4.29 10*6/uL Normal 4.20-6.00 [facility] Comment on above: Order Comment: Speci men Type: BLOOD SPECIMEN Performed By: #### 5 7021-8 #### [facility] [place] [facility] CLIA [id number] [address] [place] [address] [place] WBC (Bld) [#/Vol] 4.16 10*3/uL Normal 3.70-11.00 [facility] Comment on above: Order Comment: Speci men Type: BLOOD SPECIMEN Performed By: #### 5 7021-8 #### [facility] [place] [facility] CLIA [id number] [address] [place] [address] [facility] Comprehensive metabolic 2000 panelon 02-21-2021 Albumin [Mass/Vol] 3.9 g/dL Normal 3.9-4.9 [facility] Comment on above: Order Comment: Speci men Type: BLOOD SPECIMEN Performed By: #### 2 4323-8 #### [facility] [place] [facility] CLIA [id number] [address] [place] [address] [place] ALP [Catalytic activity/Vol] 52 U/L Normal 38-113 [facility] Comment on above: Order Comment: Speci men Type: BLOOD SPECIMEN Performed By: #### 2 4323-8 #### [facility] [place] [facility] CLIA [id number] [address] [place] [address] [place] ALT With P-5'-P [Catalytic activity/Vol] 24 U/L Normal 10-54 [facility] Comment on above: Order Comment: Speci men Type: BLOOD SPECIMEN Performed By: #### 2 4323-8 #### [facility] [place] [facility] CLIA [id number] [address] [facility] [place] [address] [place] Anion gap [Moles/Vol] 15 mmol/L Normal 9-18 [facility] Comment on above: Order Comment: Speci men Type: BLOOD SPECIMEN Performed By: #### 2 4323-8 #### [facility] [place] [facility] CLIA [id number] [address] [place] [address] [place] AST With P-5'-P [Catalytic activity/Vol] 36 U/L Normal 14-40 [facility] Comment on above: Order Comment: Speci men Type: BLOOD SPECIMEN Performed By: #### 2 4323-8 #### [facility] [place] [facility] CLIA [id number] [address] [place] [address] [place] Bilirubin [Mass/Vol] 0.5 mg/dL Normal 0.2-1.3 [facility] Comment on above: Order Comment: Speci men Type: BLOOD SPECIMEN Performed By: #### 2 4323-8 #### [facility] [place] [facility] CLIA [id number] [address] [place] [address] [place] Calcium [Mass/Vol] 8.9 mg/dL Normal 8.5-10.2 [facility] Comment on above: Order Comment: Speci men Type: BLOOD SPECIMEN Performed By: #### 2 4323-8 #### [facility] [place] [facility] CLIA [id number] [address] [facility] [address] [place] Chloride [Moles/Vol] 100 mmol/L Normal 97-105 [facility] Comment on above: Order Comment: Speci men Type: BLOOD SPECIMEN Performed By: #### 2 4323-8 #### [facility] [place] [facility] CLIA [id number] [address] [place] [address] [place] CO2 [Moles/Vol] 21 mmol/L Low 22-30 [facility] Comment on above: Order Comment: Speci men Type: BLOOD SPECIMEN Performed By: #### 2 4323-8 #### [facility] [place] [facility] CLIA [id number] [address] [facility] [address] [place] Creatinine [Mass/Vol] 2.04 mg/dL High 0.73-1.22 [facility] Comment on above: Order Comment: Speci men Type: BLOOD SPECIMEN Performed By: #### 2 4323-8 #### [facility] [place] [facility] CLIA [id number] [address] [facility] [address] [place] GFR/1.73 sq M.predicted among blacks MDRD (S/P/Bld) [Vol rate/Area] 38 mL/min/{1.73_m2} Normal [facility] Comment on above: Order Comment: Speci men Type: BLOOD SPECIMEN Performed By: #### 2 4323-8 #### [facility] [place] [facility] CLIA [id number] [address] [place] [address] [place] GFR/1.73 sq M.predicted among non-blacks MDRD (S/P/Bld) [Vol rate/Area] 32 mL/min/{1.73_m2} Normal [facility] Comment on above: Order Comment: Speci men Type: BLOOD SPECIMEN Result Comment: eGFR (Estimated GFR) Units of measure: mL/min/1.73 meters squared eGFR is derived from the reexpressed MDRD Study equation using the following parameters: serum creatinine, age, gender and race. The creatinine assay has been calibrated to be traceable to IDMS. An eGFR <60 mL/min/1.73m2 for >3 months is consistent with chronic kidney disease. Refer to KDOQI guidelines for clinical interpretation. In patients with unstable renal function, e.g. those with acute kidney injury, the eGFR may not accurately reflect actual GFR. Performed By: #### 2 4323-8 #### [facility] CLIA [id number] [address] [place] [address] [place] Glucose [Mass/Vol] 147 mg/dL High 74-99 [facility] Comment on above: Order Comment: Speci men Type: BLOOD SPECIMEN Result Comment: The [place] Diabetes Association (ADA) provides guidance for cutoff values for fasting glucose and random glucose. The ADA defines fasting as no caloric intake for at least 8 hours. Fasting plasma glucose results between 100 to 125 mg/dL indicate increased risk for diabetes (prediabetes). Fasting plasma glucose results greater than or equal to 126 mg/dL meet the criteria for diagnosis of diabetes. In the absence of unequivocal hyperglycemia, results should be confirmed by repeat testing. In a patient with classic symptoms of hyperglycemia or hyperglycemic crisis, random plasma glucose results greater than or equal to 200 mg/dL meet the criteria for diagnosis of diabetes. Reference: Standards of Medical Care in Diabetes 2016, [place] Diabetes Association. Diabetes Care. 2016.39(Suppl 1). Performed By: #### 2 4323-8 #### [facility] CLIA [id number] [address] [place] [address] [place] Potassium [Moles/Vol] 4.0 mmol/L Normal 3.7-5.1 [facility] Comment on above: Order Comment: Speci men Type: BLOOD SPECIMEN Performed By: #### 2 4323-8 #### [facility] [place] [facility] CLIA [id number] [address] [facility] [place] [place] [address] [place] Protein [Mass/Vol] 7.1 g/dL Normal 6.3-8.0 [facility] Comment on above: Order Comment: Speci men Type: BLOOD SPECIMEN Performed By: #### 2 4323-8 #### [facility] [place] [facility] CLIA [id number] [address] [facility] [place] [address] [place] Sodium [Moles/Vol] 136 mmol/L Normal 136-144 [facility] Comment on above: Order Comment: Speci men Type: BLOOD SPECIMEN Performed By: #### 2 4323-8 #### [facility] [place] [facility] CLIA [id number] [address] [place] [address] [place] Urea nitrogen [Mass/Vol] 29 mg/dL High 9-24 [facility] Comment on above: Order Comment: Speci men Type: BLOOD SPECIMEN Performed By: #### 2 4323-8 #### [facility] [place] [facility] CLIA [id number] [address] [place] [address] [facility] [place] ED PROV NOTEon 02-21-2021 ED PROV NOTE HNO ID: [id number] Author: Shira Domingo DO Service: Emergency Medicine Author Type: Physician Type: ED Provider Notes Filed: 02/22/2021 1:40 AM Note Text: ED Provider Note Patient Name: Yanick Vaughn SERVICE DATE: 02/21/21 History Patient presents with: Covid19 Concern Yanick Vaughn is a 80 year old male with history of multiple chronic medical problems who presents with Covid19 Concern. - Symptoms began 1.5 weeks prior to arrival. - Severity: moderate - Timing: constant - Quality: dull - Covid19 Concern is exacerbated by nothing. - Covid19 Concern is not exacerbated by anything. - Symptoms are associated with headache/sinus pain, generalized fatigue, body aches, low-grade fever, chills. - Symptoms are not associated with abdominal pain, chest pain, diarrhea, nausea, rash, shortness of breath, vomiting, palpitations, hemoptysis, syncope, sore throat. - Improved by nothing. - Not improved by anything. Patient presents with concern for COVID-19. He states he has had generalized fatigue, body aches, low-grade fever, chills, frontal/sinus headache that started about 1.5 weeks ago. He denies cough, chest pain, shortness of breath. Denies nausea, vomiting, diarrhea, abdominal pain. No dysuria or hematuria. 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 Social History Tobacco Use - Smoking status: Former Smoker Packs/day: 2.00 Years: 40.00 Pack years: 80.00 Types: Cigarettes Quit date: 05/28/1982 Years since quittin.7 - Smokeless tobacco: Never Used Substance and Sexual Activity - Alcohol use: No - Drug use: No - Sexual activity: Not on file ALLERGIES Allergen Reactions - Adhesive Tape (Lexi* Unknown - Cephalexin Rash - Chocolate Unknown - Sulfa (Sulfonamide * Rash, Unknown Review of Systems Constitutional: Positive for chills, fatigue and fever. HENT: Negative for sore throat and trouble swallowing. Respiratory: Negative for cough and shortness of breath. Cardiovascular: Negative for chest pain. Gastrointestinal: Negative for abdominal pain, diarrhea, nausea and vomiting. Genitourinary: Negative for dysuria, flank pain and hematuria. Musculoskeletal: Positive for myalgias. Skin: Negative for rash. Neurological: Positive for headaches. Negative for dizziness, syncope, facial asymmetry, speech difficulty, weakness and numbness. Psychiatric/Behavioral: Negative for agitation and confusion. Physical Exam BP 159/78 Pulse 85 Temp (Src) 99.9 (Temporal Artery) Resp 18 Ht 5' 9 (1.75m) Wt 225 lb (102.1kg) SpO2 96% BMI 33.21 kg/(m2). Physical Exam Vitals and nursing note reviewed. Constitutional: General: He is not in acute distress. Appearance: He is not ill-appearing, toxic-appearing or diaphoretic. HENT: Head: Normocephalic and atraumatic. Mouth/Throat: Mouth: Mucous membranes are moist. Pharynx: Oropharynx is clear. No oropharyngeal exudate or posterior oropharyngeal erythema. Eyes: General: No scleral icterus. Extraocular Movements: Extraocular movements intact. Conjunctiva/sclera: Conjunctivae normal. Pupils: Pupils are equal, round, and reactive to light. Cardiovascular: Rate and Rhythm: Normal rate and regular rhythm. Pulses: Normal pulses. Pulmonary: Effort: Pulmonary effort is normal. Breath sounds: Normal breath sounds. Abdominal: General: Abdomen is flat. Bowel sounds are normal. There is no distension. Palpations: Abdomen is soft. Tenderness: There is no abdominal tenderness. There is no right CVA tenderness, left CVA tenderness, guarding or rebound. Musculoskeletal: Cervical back: Normal range of motion and neck supple. No rigidity. Right lower leg: No edema. Left lower leg: No edema. Skin: General: Skin is warm and dry. Capillary Refill: Capillary refill takes less than 2 seconds. Findings: No rash. Neurological: General: No focal deficit present. Mental Status: He is alert and oriented to person, place, and time. GCS: GCS eye subscore is 4. GCS verbal subscore is 5. GCS motor subscore is 6. Cranial Nerves: Cranial nerves are intact. Sensory: Sensation is intact. Motor: Motor function is intact. Psychiatric: Mood and Affect: Mood normal. Behavior: Behavior normal. Diagnostic Testing ED Labs Ordered and Reviewed - No data to display Procedures ED Course / Clinical Impression Clinical Impressions as of Feb 22 133 COVID-19 COVID-19 test performed per [facility] policy for suspected COVID community exposure. MDM / Disposition / Plan Labs, imaging, EKG ordered. Rapid Covid ordered. XR CHEST 1V FRONTAL Final Result IMPRESSION: No signif (more content not included)... Normal [facility] HIGH SENSITIVITY TROPONIN To n 02-21-2021 HIGH SENSITIVITY MOUSTAPHA 29 ng/L High <12 [facility] Comment on above: Order Comment: Speci men Type: BLOOD SPECIMEN Result Comment: When assessing risk for acute coronary syndromes: In patients undergoing blood draw greater than or equal to 2 hours from symptom onset, with history of very low to moderate risk and non-ischemic ECG, an initial hs-Troponin T less than 12 ng/L AND a 1 hour delta hs-Troponin T less than 3 ng/L should be considered very low risk for 30 day MACE. Performed By: #### H STNT #### [facility] CLIA [id number] [address] [place], [place] [address] [place] [address] [place] HIGH SENSITIVITY MOUSTAPHA 31 ng/L High <12 [facility] Comment on above: Order Comment: Speci men Type: BLOOD SPECIMEN Result Comment: When assessing risk for acute coronary syndromes: In patients undergoing blood draw greater than or equal to 2 hours from symptom onset, with history of very low to moderate risk and non-ischemic ECG, an initial hs-Troponin T less than 12 ng/L AND a 1 hour delta hs-Troponin T less than 3 ng/L should be considered very low risk for 30 day MACE. Performed By: #### H STNT #### [facility] CLIA [id number] [address] [place] [id number] [facility] [place] Lactate (Bld) [Moles/Vol]on 02-21-2021 Lactate [Moles/Vol] 1.3 mmol/L Normal 0.5-2.2 [facility] Comment on above: Order Comment: Speci men Type: BLOOD SPECIMEN Performed By: #### 3 2693-4 #### [facility] CLIA [id number] [address] [place] [id number] [facility] [place] SARS-CoV-2 RNA Resp Ql KYAW+p robeon 02-21-2021 SARS-CoV-2 (COVID-19) RNA KYAW+probe Ql (Resp) COVID 19 RESULT: SARS-CoV-2 (Agent of COVID-19) Detected by PCR. This test has been authorized by FDA under an Emergency Use Authorization (EUA) Normal [facility] Comment on above: Performed By: #### 3 2693-4 #### [facility] CLIA [id number] [address] [place] [address] [place] Urinalysis complete panel (U )on 02-21-2021 Bilirubin Ql (U) Negative Normal Negative [facility] Comment on above: Order Comment: Speci men Type: URINE SPECIMEN Performed By: #### 2 4356-8 #### [facility] [place] [facility] CLIA [id number] [address] [place] [address] [place] Clarity (Unsp spec) Clear Normal Clear [facility] Comment on above: Order Comment: Speci men Type: URINE SPECIMEN Performed By: #### 2 4356-8 #### [facility] [place] [facility] CLIA [id number] [address] [place] [address] [place] Color (U) Yellow Normal Yellow [facility] Comment on above: Order Comment: Speci men Type: URINE SPECIMEN Performed By: #### 2 4356-8 #### [facility] [place] [facility] CLIA [id number] [address] [place] [address] [facility] Glucose Test strip (U) [Mass/Vol] Negative Normal Negative [facility] Comment on above: Order Comment: Speci men Type: URINE SPECIMEN Performed By: #### 2 4356-8 #### [facility] [place] [facility] CLIA [id number] [address] [place] [address] [place] Hemoglobin Ql (U) Negative Normal Negative [facility] Comment on above: Order Comment: Speci men Type: URINE SPECIMEN Performed By: #### 2 4356-8 #### [facility] [place] [facility] CLIA [id number] [address] [place] [address] [place] Ketones Ql (U) Negative Normal Negative [facility] Comment on above: Order Comment: Speci men Type: URINE SPECIMEN Performed By: #### 2 4356-8 #### [facility] [place] [facility] CLIA [id number] [address] [place] [address] [place] Leukocyte esterase Test strip Ql (U) Negative Normal Negative [facility] Comment on above: Order Comment: Speci men Type: URINE SPECIMEN Performed By: #### 2 4356-8 #### [facility] [place] [facility] CLIA [id number] [address] [place] [address] [place] Nitrite Ql (U) Negative Normal Negative [facility] Comment on above: Order Comment: Speci men Type: URINE SPECIMEN Performed By: #### 2 4356-8 #### [facility] [place] [facility] CLIA [id number] [address] [place] [address] [facility] pH (U) 6.5 [pH] Normal 5.0-8.0 [facility] Comment on above: Order Comment: Speci men Type: URINE SPECIMEN Performed By: #### 2 4356-8 #### [facility] [place] [facility] CLIA [id number] [address] [place] [address] [facility] Protein (U) [Mass/Vol] 2+ Abnormal Negative [facility] Comment on above: Order Comment: Speci men Type: URINE SPECIMEN Performed By: #### 2 4356-8 #### [facility] [place] [facility] CLIA [id number] [address] [place] [address] [facility] RBC LM.HPF (Urine sed) [#/Area] 0-3 /HPF Normal 0-3 /HPF [facility] Comment on above: Order Comment: Speci men Type: URINE SPECIMEN Performed By: #### 2 4356-8 #### [facility] [place] [facility] CLIA [id number] [address] [place] [address] [facility] Specific gravity (U) [Rel density] 1.020 Normal 1.005-1.030 [facility] Comment on above: Order Comment: Speci men Type: URINE SPECIMEN Performed By: #### 2 4356-8 #### [facility] [place] [facility] CLIA [id number] [address] [facility] [address] [facility] [place] Urobilinogen Ql (U) 0.2 EU/dL Normal 0.2-1.0 EU/dL [facility] Comment on above: Order Comment: Speci men Type: URINE SPECIMEN Performed By: #### 2 4356-8 #### [facility] [place] [facility] CLIA [id number] [address] [place] [address] [facility] [place] WBC LM.HPF (Urine sed) [#/Area] 0-5 /HPF Normal 0-5 /HPF [facility] Comment on above: Order Comment: Speci men Type: URINE SPECIMEN Performed By: #### 2 4356-8 #### [facility] [place] [facility] CLIA [id number] [address] [place] [address] [place] XR CHEST 1V FRONTALon 2020 XR CHEST 1V FRONTAL * * *Final Report* * * DATE OF EXAM: Feb 21 2021 9:00PM LDX 5290 - XR CHEST 1V FRONTAL / PROCEDURE REASON: Fatigue and malaise * * * * Physician Interpretation * * * * EXAMINATION: CHEST RADIOGRAPH (SINGLE VIEW AP OR PA) Clinical History: Fatigue and malaise Comparison: 08/22/2020, 07/02/2018 RESULT: Lines, tubes, and devices: N/A Lungs and pleura: No confluent infiltrate, large pleural effusion or pneumothorax. Evidence remote granulomatous disease. Favor bibasilar subsegmental atelectasis. Cardiomediastinal silhouette: Unchanged appearance. Other: No acute bony abnormality identified. IMPRESSION: No significant acute radiographic abnormality of the chest or interval change. [employer] Aide: PSCB Transcribe Date/Time: Feb 21 2021 9:03P Dictated by : ANDREAS CHAPPELL MD This examination was interpreted and the report reviewed and electronically signed by: ANDREAS CHAPPELL MD on Feb 21 2021 9:04PM EST [id number] Normal [facility] Basic metabolic 2000 panelon 08-23-2020 Anion gap [Moles/Vol] 12 mmol/L Normal 9-18 [facility] Comment on above: Order Comment: Speci men Type: BLOOD SPECIMEN Performed By: #### 2 4321-2, 46417-5 #### [facility] CLIA [id number] [address] [place] [address] [place] [facility] Calcium [Mass/Vol] 9.1 mg/dL Normal 8.5-10.2 [facility] Comment on above: Order Comment: Speci men Type: BLOOD SPECIMEN Performed By: #### 2 4321-2, 60865-6 #### [facility] [place] [facility] CLIA [id number] [address] [place] [address] [place] Chloride [Moles/Vol] 103 mmol/L Normal 97-105 [facility] Comment on above: Order Comment: Speci men Type: BLOOD SPECIMEN Performed By: #### 2 4321-2, 50953-3 #### [facility] [place] [facility] CLIA [id number] [address] [facility] [address] [place] CO2 [Moles/Vol] 23 mmol/L Normal 22-30 [facility] Comment on above: Order Comment: Speci men Type: BLOOD SPECIMEN Performed By: #### 2 4321-2, 02974-0 #### [facility] [place] [facility] CLIA [id number] [address] [place] [address] [place] Creatinine [Mass/Vol] 2.20 mg/dL High 0.73-1.22 [facility] Comment on above: Order Comment: Speci men Type: BLOOD SPECIMEN Performed By: #### 2 4321-2, 78576-2 #### [facility] [place] [facility] CLIA [id number] [address] [facility] [address] [place] GFR/1.73 sq M.predicted among blacks MDRD (S/P/Bld) [Vol rate/Area] 35 mL/min/{1.73_m2} Normal [facility] Comment on above: Order Comment: Speci men Type: BLOOD SPECIMEN Performed By: #### 2 4321-2, 91787-7 #### [facility] [place] [facility] CLIA [id number] [address] [facility] [address] [place] GFR/1.73 sq M.predicted among non-blacks MDRD (S/P/Bld) [Vol rate/Area] 29 mL/min/{1.73_m2} Normal [facility] Comment on above: Order Comment: Speci men Type: BLOOD SPECIMEN Result Comment: eGFR (Estimated GFR) Units of measure: mL/min/1.73 meters squared eGFR is derived from the reexpressed MDRD Study equation using the following parameters: serum creatinine, age, gender and race. The creatinine assay has been calibrated to be traceable to IDMS. An eGFR <60 mL/min/1.73m2 for >3 months is consistent with chronic kidney disease. Refer to KDOQI guidelines for clinical interpretation. In patients with unstable renal function, e.g. those with acute kidney injury, the eGFR may not accurately reflect actual GFR. Performed By: #### 2 4321-2, 81842-9 #### [facility] [place] [facility] CLIA [id number] [address] [place] [address] [place] Glucose [Mass/Vol] 149 mg/dL High 74-99 [facility] Comment on above: Order Comment: Speci men Type: BLOOD SPECIMEN Result Comment: The [place] Diabetes Association (ADA) provides guidance for cutoff values for fasting glucose and random glucose. The ADA defines fasting as no caloric intake for at least 8 hours. Fasting plasma glucose results between 100 to 125 mg/dL indicate increased risk for diabetes (prediabetes). Fasting plasma glucose results greater than or equal to 126 mg/dL meet the criteria for diagnosis of diabetes. In the absence of unequivocal hyperglycemia, results should be confirmed by repeat testing. In a patient with classic symptoms of hyperglycemia or hyperglycemic crisis, random plasma glucose results greater than or equal to 200 mg/dL meet the criteria for diagnosis of diabetes. Reference: Standards of Medical Care in Diabetes 2016, [place] Diabetes Association. Diabetes Care. 2016.39(Suppl 1). Performed By: #### 2 1-2, 08018-8 #### [facility] [place] [facility] CLIA [id number] [address] [place] [address] [place] Potassium [Moles/Vol] 4.0 mmol/L Normal 3.7-5.1 [facility] Comment on above: Order Comment: Speci men Type: BLOOD SPECIMEN Performed By: #### 2 4321-2, 58110-3 #### [facility] [place] [facility] CLIA [id number] [address] [place] [address] [place] Sodium [Moles/Vol] 138 mmol/L Normal 136-144 [facility] Comment on above: Order Comment: Speci men Type: BLOOD SPECIMEN Performed By: #### 2 4321-2, 84515-1 #### [facility] [place] [facility] CLIA [id number] [address] [place] [address] [place] Urea nitrogen [Mass/Vol] 42 mg/dL High 9- [facility] Comment on above: Order Comment: Speci men Type: BLOOD SPECIMEN Performed By: #### 2 4321-2, 78541-9 #### [facility] [place] [facility] CLIA [id number] [address] [place] [address] [place] CBC W Auto Differential pane l (Bld)on 08-23-2020 Basophils (Bld) [#/Vol] 0.03 10*3/uL Normal <0.11 [facility] Comment on above: Order Comment: Speci men Type: BLOOD SPECIMEN Performed By: #### 3 2693-4 #### [facility] [place] [facility] CLIA [id number] [address] [place] [address] [place] Basophils/100 WBC (Bld) 0.4 % Normal [facility] Comment on above: Order Comment: Speci men Type: BLOOD SPECIMEN Performed By: #### 3 2693-4 #### [facility] [place] [facility] CLIA [id number] [address] [place] [address] [place] Differential cell count method Nom (Bld) Auto Normal [facility] Comment on above: Order Comment: Speci men Type: BLOOD SPECIMEN Performed By: #### 3 2693-4 #### [facility] [place] [facility] CLIA [id number] [address] [place] [address] [place] Eosinophils (Bld) [#/Vol] 0.12 10*3/uL Normal <0.46 [facility] Comment on above: Order Comment: Speci men Type: BLOOD SPECIMEN Performed By: #### 3 2693-4 #### [facility] [place] [facility] CLIA [id number] [address] [place] [address] [place] Eosinophils/100 WBC (Bld) 1.8 % Normal [facility] Comment on above: Order Comment: Speci men Type: BLOOD SPECIMEN Performed By: #### 3 2693-4 #### [facility] [place] [facility] CLIA [id number] [address] [place] [address] [place] Erythrocyte distribution width (RBC) [Ratio] 12.8 % Normal 11.5-15.0 [facility] Comment on above: Order Comment: Speci men Type: BLOOD SPECIMEN Performed By: #### 3 2693-4 #### [facility] [place] [facility] CLIA [id number] [address] [place] [address] [place] Hematocrit (Bld) [Volume fraction] 37.5 % Low 39.0-51.0 [facility] Comment on above: Order Comment: Speci men Type: BLOOD SPECIMEN Performed By: #### 3 2693-4 #### [facility] [place] [facility] CLIA [id number] [address] [place] [address] [place] Hemoglobin (Bld) [Mass/Vol] 12.7 g/dL Low 13.0-17.0 [facility] Comment on above: Order Comment: Speci men Type: BLOOD SPECIMEN Performed By: #### 3 2693-4 #### [facility] [place] [facility] CLIA [id number] [address] [place] [address] [place] Lymphocytes (Bld) [#/Vol] 1.21 10*3/uL Normal 1.00-4.00 [facility] Comment on above: Order Comment: Speci men Type: BLOOD SPECIMEN Performed By: #### 3 2693-4 #### [facility] CLIA [id number] [address] [place] [address] [facility] Lymphocytes/100 WBC (Bld) 18.1 % Normal [facility] Comment on above: Order Comment: Speci men Type: BLOOD SPECIMEN Performed By: #### 3 2693-4 #### [facility] CLIA [id number] [address] [place] [address] [facility] MCH (RBC) [Entitic mass] 29.9 pg Normal 26.0-34.0 [facility] Comment on above: Order Comment: Speci men Type: BLOOD SPECIMEN Performed By: #### 3 2693-4 #### [facility] CLIA [id number] [address] [facility] [address] [place] MCHC (RBC) [Mass/Vol] 33.9 g/dL Normal 30.5-36.0 [facility] Comment on above: Order Comment: Speci men Type: BLOOD SPECIMEN Performed By: #### 3 2693-4 #### [facility] CLIA [id number] [address] [facility] [address] [place] MCV (RBC) [Entitic vol] 88.2 fL Normal 80.0-100.0 [facility] Comment on above: Order Comment: Speci men Type: BLOOD SPECIMEN Performed By: #### 3 2693-4 #### [facility] CLIA [id number] [address] [facility] [address] [place] Monocytes (Bld) [#/Vol] 0.54 10*3/uL Normal <0.87 [facility] Comment on above: Order Comment: Speci men Type: BLOOD SPECIMEN Performed By: #### 3 2693-4 #### [facility] CLIA [id number] [address] [place] [address] [place] Monocytes/100 WBC (Bld) 8.1 % Normal [facility] Comment on above: Order Comment: Speci men Type: BLOOD SPECIMEN Performed By: #### 3 2693-4 #### [facility] CLIA [id number] [address] [facility] [place] [address] [place] Neutrophils (Bld) [#/Vol] 4.78 10*3/uL Normal 1.45-7.50 [facility] Comment on above: Order Comment: Speci men Type: BLOOD SPECIMEN Performed By: #### 3 2693-4 #### [facility] CLIA [id number] [address] [facility] [place] [address] [place] Neutrophils/100 WBC (Bld) 71.6 % Normal [facility] Comment on above: Order Comment: Speci men Type: BLOOD SPECIMEN Performed By: #### 3 2693-4 #### [facility] CLIA [id number] [address] [facility] [address] [place] Platelet mean volume (Bld) [Entitic vol] 10.2 fL Normal 9.0-12.7 [facility] Comment on above: Order Comment: Speci men Type: BLOOD SPECIMEN Performed By: #### 3 2693-4 #### [facility] CLIA [id number] [address] [place] [address] [place] Platelets (Bld) [#/Vol] 213 10*3/uL Normal 150-400 [facility] Comment on above: Order Comment: Speci men Type: BLOOD SPECIMEN Performed By: #### 3 2693-4 #### [facility] CLIA [id number] [address] [facility] [address] [place] RBC (Bld) [#/Vol] 4.25 10*6/uL Normal 4.20-6.00 [facility] Comment on above: Order Comment: Speci men Type: BLOOD SPECIMEN Performed By: #### 3 2693-4 #### [facility] CLIA [id number] [address] [facility] [address] [place] WBC (Bld) [#/Vol] 6.68 10*3/uL Normal 3.70-11.00 [facility] Comment on above: Order Comment: Speci men Type: BLOOD SPECIMEN Performed By: #### 3 2693-4 #### [facility] CLIA [id number] [address] [facility] [place] [address] [facility] ED NOTEon 08-23-2020 ED NOTE HNO ID: [id number] Author: Miguel De Leon) NIGEL Funes Service: Emergency Medicine Author Type: Registered Nurse Type: ED Notes Filed: 08/23/2020 10:01 AM Note Text: Patient Call Back Information ? How are you doing ? better ? Did we appropriately manage your pain? Yes ? Did you understand your discharge instructions? Yes ? Did you get your prescriptions filled? Yes ? Were you able to make a follow-up appointment with your physician? Yes ? Were you comfortable during your stay here? Yes ? Did a member of the ER nursing team round on you during your visit? Yes ? You will receive a patient satisfaction survey in the mail in the nest 2 weeks, please take the time to fill out the survey as your input from your ER visit is very important to us. Yes ? Can we do anything else to help you? No Normal [facility] ED NOTE HNO ID: [id number] Author: Herman Frias RN Service: Emergency Medicine Author Type: Registered Nurse Type: ED Notes Filed: 08/23/2020 1:27 AM Note Text: Patient discharge instructions given to patient, patient educated on discharge instructions. Patient denied having questions at this time regarding discharge instructions. Patient discharged home with patient's spouse. Patient ambulated out of the emergency department with a steady gait at this time. Normal [facility] ED NOTE HNO ID: [id number] Author: Herman Frias RN Service: Emergency Medicine Author Type: Registered Nurse Type: ED Notes Filed: 08/23/2020 1:06 AM Note Text: Physician at bedside with patient. Normal [facility] ED NOTE HNO ID: [id number] Author: Herman Frias RN Service: Emergency Medicine Author Type: Registered Nurse Type: ED Notes Filed: 08/22/2020 11:20 PM Note Text: 79 y/o male presenting to the ED with complaint of high blood pressure and some shortness of breath. Patient reported that his blood pressure felt high since around noon today. Patient additionally complains of some shortness of breath. Patient ambulated to patient room 6 with a steady gait. Patient alert and oriented x3 (Person, place, and time). Patient denies having chest pain. Patient denies doing any activity different of his normal daily routine. Normal [facility] ED NOTE HNO ID: [id number] Author: Herman Frias RN Service: Emergency Medicine Author Type: Registered Nurse Type: ED Notes Filed: 08/22/2020 11:17 PM Note Text: Physician at bedside at this time. Normal [facility] ED PROV NOTEon 08-23-2020 ED PROV NOTE HNO ID: [id number] Author: Yanick Fan MD Service: Emergency Medicine Author Type: Physician Type: ED Provider Notes Filed: 08/23/2020 1:24 AM Note Text: ED Provider Note Patient Name: Yanick Vaughn SERVICE DATE: 08/22/20 History Patient presents with: Hypertension Shortness of Breath Yanick Vaughn is a 79 year old male with history of htn who presents with Hypertension and Shortness of Breath. Patient took nothing for this prior to arrival. - Symptoms began this afternoon. - Severity: mild - Timing: constant - Quality: Blood pressure running high feeling palpitations and a little bit short of breath - Hypertension and Shortness of Breath is exacerbated by nothing. - Hypertension and Shortness of Breath is not exacerbated by movement. - Symptoms are associated with nothing. - Symptoms are not associated with chest pain. - Improved by nothing. - Not improved by rest Blood pressures been running high for this gentleman is been checking it per his doctors request he has been compliant with medications the diastolic was running about 110 tonight and the systolic in the 160s he was trying to lay down to go to sleep and he could feel his heartbeat in his ears so he came to the emergency department to be checked. He notes that he is been a little bit more short of breath over the past several months but attributes that to weight gain and lack of activity. No known coronary artery disease. He states he did have a stress test about a year ago.. The only stress test that I can find in our records is 10 years old showed no acute changes at that time. 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 Social History Tobacco Use - Smoking status: Former Smoker Packs/day: 2.00 Years: 40.00 Pack years: 80.00 Types: Cigarettes Quit date: 05/28/1982 Years since quittin.2 - Smokeless tobacco: Never Used Substance and Sexual Activity - Alcohol use: No - Drug use: No - Sexual activity: Not on file ALLERGIES Allergen Reactions - Adhesive Tape (Lexi* Unknown - Cephalexin Rash - Chocolate Unknown - Sulfa (Sulfonamide * Rash, Unknown Review of Systems Constitutional: Negative for chills and fever. Respiratory: Positive for shortness of breath. Negative for cough. Cardiovascular: Positive for palpitations. Negative for chest pain and leg swelling. Gastrointestinal: Negative for abdominal pain, nausea and vomiting. Skin: Negative for color change, pallor, rash and wound. Allergic/Immunologic: Negative for environmental allergies, food allergies and immunocompromised state. Neurological: Negative for dizziness, syncope, weakness, light-headedness and numbness. Psychiatric/Behavioral: Negative for confusion. The patient is not nervous/anxious. Physical Exam BP 150/62 Pulse 84 Temp (Src) 97.7 (Temporal) Resp 25 Ht 5' 9 (1.75m) Wt 224 lb (101.6kg) SpO2 97% BMI 33.06 kg/(m2). O2 Therapy: Room Air Physical Exam Vitals and nursing note reviewed. Constitutional: General: He is not in acute distress. Appearance: He is obese. He is not ill-appearing, toxic-appearing or diaphoretic. HENT: Head: Normocephalic and atraumatic. Eyes: Extraocular Movements: Extraocular movements intact. Cardiovascular: Rate and Rhythm: Normal rate and regular rhythm. Pulmonary: Effort: Pulmonary effort is normal. No respiratory distress. Breath sounds: Normal breath sounds. Abdominal: Palpations: Abdomen is soft. Tenderness: There is no abdominal tenderness. Musculoskeletal: General: Normal range of motion. Cervical back: Normal range of motion and neck supple. Right lower leg: No edema. Skin: General: Skin is warm and dry. Capillary Refill: Capillary refill takes less than 2 seconds. Neurological: General: No focal deficit present. Mental Status: He is alert and oriented to person, place, and time. Psychiatric: Mood and Affect: Mood normal. Mood is not anxious. Behavior: Behavior normal. Behavior is not agitated. Diagnostic Testing ED Labs Ordered and Reviewed - No data to display Procedures ED Course / Clinical Impression Clinical Impressions as of Aug 23 120 Essential hypertension MDM / Disposition / Plan Patient takes his evening dose of blood pressure medication around 5 in the afternoon and he took it this evening blood pressure here in the emergency department is actually pretty good 150 systolic initially 93 diastolic now 62. He is wondering if his cuff is accurate at home. Initially he seemed anxious to me and I noticed that the more we talked in the more his anxiety dissipated his breathing improved he was ini (more content not included)... Normal [facility] HIGH SENSITIVITY TROPONIN To n 08-23-2020 HIGH SENSITIVITY MOUSTAPHA 29 ng/L High <12 [facility] Comment on above: Order Comment: Jamili men Type: BLOOD SPECIMEN Result Comment: When assessing risk for acute coronary syndromes: In patients undergoing blood draw greater than or equal to 2 hours from symptom onset, with history of very low to moderate risk and non-ischemic ECG, an initial hs-Troponin T less than 12 ng/L AND a 1 hour delta hs-Troponin T less than 3 ng/L should be considered very low risk for 30 day MACE. Performed By: #### H STNT #### [facility] CLIA [id number] [address] [place], [place] [address] [place] [address] HIGH SENSITIVITY MOUSTAPHA 30 ng/L High <12 [facility] Comment on above: Order Comment: Jamili men Type: BLOOD SPECIMEN Result Comment: When assessing risk for acute coronary syndromes: In patients undergoing blood draw greater than or equal to 2 hours from symptom onset, with history of very low to moderate risk and non-ischemic ECG, an initial hs-Troponin T less than 12 ng/L AND a 1 hour delta hs-Troponin T less than 3 ng/L should be considered very low risk for 30 day MACE. Performed By: #### H STNT #### [facility] CLIA [id number] [address] NT-proBNP [facility] 08-23 Natriuretic peptide.B prohormone N-Terminal [Mass/Vol] 303 pg/mL Normal <450 [facility] Comment on above: Order Comment: Jam[facility] Type: BLOOD SPECIMEN Performed By: #### 2 4321-2, 05614-4 #### [facility] CLIA [id number] [address] [place] [address] [facility] XR CHEST 1V FRONTALon 2020 XR CHEST 1V FRONTAL Final Report DATE OF EXAM: Aug 22 2020 11:48PM LDX 5290 - XR CHEST 1V FRONTAL / PROCEDURE REASON: Chest pain or SOB, pleurisy or effusion suspected Physician Interpretation EXAMINATION: CHEST RADIOGRAPH (SINGLE VIEW AP OR PA) CLINICAL HISTORY: Shortness of breath MQ: XC1_5 Comparison: Chest radiograph 07/02/2018 RESULT: Lines, tubes, and devices: None. Lungs and pleura: Strandy densities at the right lung base. Stable calcified nodule at the right lower lobe. No pleural effusion or pneumothorax. Cardiomediastinal silhouette: Stable cardiomediastinal silhouette. Other: No acute bony abnormalities. IMPRESSION: Strandy densities at the right lung base may represent atelectasis versus developing pneumonia. Coffee Shop Aide: PSCB Transcribe Date/Time: Aug 23 2020 12:08A Dictated by : ANDREAS BRYAN MD This examination was interpreted and the report reviewed and electronically signed by: ANDREAS BRYAN MD on Aug 23 2020 12:10AM EST Normal [facility] Vital Signs Date Time Vital Sign Value Performing Clinician Jaxon chu 10-07-2024 08:25-0400 Body height 175.26 cm [facility] GENERAL HOUSE WORKER-C Work Phone: [facility] 10-07-2024 08:25-0400 Body mass index (BMI) [Ratio] 32.5 kg/m2 [facility] GENERAL HOUSE WORKER-C Work Phone: [facility] 10-07-2024 08:25-0400 Body weight 99.79 kg [facility] GENERAL HOUSE WORKER-C Work Phone: [facility] 10-07-2024 08:25-0400 Diastolic blood pressure 77 mm[Hg] [facility] GENERAL HOUSE WORKER-C Work Phone: [facility] 10-07-2024 08:25-0400 Heart rate 65 /min [facility] GENERAL HOUSE WORKER-C Work Phone: [facility] 10-07-2024 08:25-0400 Respiratory rate 20 /min [facility] GENERAL HOUSE WORKER-C Work Phone: [facility] 10-07-2024 08:25-0400 Systolic blood pressure 139 mm[Hg] [facility] GENERAL HOUSE WORKER-C Work Phone: [facility] Encounters Encounter Date Encounter Type Care Provider Facility Start: 11-17-2024 ambulatory Gurpreet Jasen Facility:[facility] Start: 10-07-2024 End: 10-07-2024 ambulatory Suze Una GENERAL HOUSE WORKER-C Work Phone: [facility] Work Phone: Start: 10-07-2024 End: 10-07-[address] Gurpreet Aggarwal MD -[facility] Work Phone: Start: 10-07-2024 End: 10-07-[address] Gurpreet Aggarwal MD -[facility] Work Phone: Start: 10-07-2024 End: 10-07-2024 ambulatory Suze Barboza GENERAL HOUSE WORKER-C Work Phone: [facility] Work Phone: Start: 10-07-2024 End: 10-07-2024 ambulatory Gurpreet Jasen Facility:[facility] Start: 05-01-2024 End: 05-01-2024 Subsequent hospital visit by physician Xr [facility] Start: 03-14-2024 End: 03-14-2024 ambulatory JESSICA DANGELO Facility:[facility] Start: 09-17-2023 End: 09-17-2023 ambulatory [facility] Work Phone: Start: 09-17-2023 End: 09-17-2023 Patient encounter procedure [facility] Start: 09-01-2022 Non-patient / Non-visit DO Awilda Billings Work Phone: [facility] Start: 09-01-2022 End: 09-01-2022 ambulatory DO Mandy Billings Work Phone: [facility] Work Phone: Start: 09-01-2022 End: 09-01-2022 Patient encounter procedure DO Mandy Billings Work Phone: [facility] Start: 08-22-2022 End: 08-22-2022 ambulatory [facility] Work Phone: Start: 08-22-2022 End: 08-22-2022 Patient encounter procedure [facility]Morteza [facility] Start: 04-16-2018 Patient encounter procedure AMANDA KUHN Facility:[facility] Start: 04-09-2018 Patient encounter procedure AMANDA KUHN Facility:[id number] Start: 10-17-2017 Patient encounter procedure MAANDA KUHN Facility:[facility] Start: 10-05-2017 Patient encounter procedure AMANDA KUHN Facility:[id number] Start: 09-18-2017 Patient encounter procedure AMANDA KUHN Facility:[facility] Start: 08-30-2017 End: 09-04-2017 Evaluation and management of inpatient AMANDA KUHN Facility:[id number] Plan of Treatment Date Care Activity Detail Author Start: 10-07-2024 Evaluation of diagno stic study results [facility] Start: 02-22-2024 Diabetes Screening Diabetes Screenin g [facility] Start: 05-28-2023 Advance Directive Discussion Advance Directive Discussion [facility] Start: 2014 Urine microalbumin profile DTaP,Tdap,Td Vaccine (2 - Td or Tdap) [facility] Start: 1960 Anxiety Screening Anxiety Screening [facility] Start: 1960 Depression Screening Depression Scre ening [facility] NM Heart Views W str ess and W radionuclide IV [facility] Payers Date Payer Category Payer Medicare [id number] 2024 Self-pay [id number] 2024 Unknown [id number] 2016 Unknown [place] [employer] SU[employer] [id number] 2016-Present [phone] [address] [place] [id number] Indemnity [id number] 2008 Unknown [id number] 2007 Medicare 1940 Unknown [id number] 1942 Unknown [id number] Unknown [id number] Unknown [id number] Unknown [id number] Unknown [id number] Social History Date Type Detail Facility Start: 08-14-[address] [facility] Unknown if ever smoked [facility] Start: 1940 Sex Assigned At Male [facility] Start: 07-02-2018 End: 10-01-2024 Tobacco smoking status NHIS Ex-smoker [facility] Start: 1940 End: 05-28-1982 History of tobacco use Current smoker [facility] Start: 1940 End: 05-28-1982 History of tobacco use Cigarette Smoker [facility] Start: 07-02-2018 End: 02-21-2021 Cigarettes smoked current (pack per day) - Reported 2 [facility] Start: 07-02-2018 Tobacco use and exposure Smokeless tobacco non-user [facility] Start: 02-21-2021 Alcoholic beverage intake Current non-drinker of alcohol (finding) [facility] Start: 02-21-2021 Tobacco use panel [facility] National Score (1-10 0), lower number is lower risk Not on file [facility] Start: 1940 Sex assigned at Not on file [facility] Evaluation note 10-07-2024 Note Date & Type Note Facility 10-07-2024 Evaluation note Diagnosis Onset Date Resolution CKD (chronic kidney disease) stage 3, GFR 30-59 ml/min chronic October 07, 2024 10:57am Dyslipidemia chronic October 07 10:57am Dyspnea on exertion chronic September 252024 10:57am History of AAA (abdominal aortic aneurysm) repair chronic October 07, 2024 10:57am Hypertension chronic October 07 10:57am Mitral valve regurgitation chronic October 07, 2024 10:57am Obesity chronic October 07, 2024 10:57am [facility] Work Phone: Progress note 10-07-2024 Note Date & Type Note Facility 10-07-2024 Progress note [facility] Progress note 10-07-2024 Note Date & Type Note Facility 10-07-2024 Progress note Note Date/Time October 07, 2024 11:34am [facility] [address] [place], [place] [address] OFFICE VISIT Date of Service: 10/07/24 MR#: [id number] Acct: [id number] Name: YANICK VAUGHN Rep #: [id number] : 1940 Provider: Dr. Korey Aggarwal MD Age/Sex: 83/M Location: [facility] Status: Signed HPI HPI History of Present Illness Details: This pleasant gentleman is here to reestablish care with us. He has a past medical history significant for mitral valve regurgitation, abdominal aortic aneurysm status post repair, hypertension, dyslipidemia and obesity. Patient denies any chest pains either at rest or with exertion. Over the last 2to 3 months, he has been getting increasingly short of breath with exertion. Denies any orthopnea or PND. No ankle edema. Per patient, he cannot walk as much as he like because of his spinal stenosis. Denies any palpitations. He has no history of CVA or TIA. Denies any syncope or presyncope. No lightheadedness or dizziness. Intake Vital Signs 10/07/24 08:25 Height 5 ft 9 in Weight: 220 lb BMI 32.5 BP 139/77 H Blood Pressure Location Lt brachial Position Sitting Respiration 20 H Pulse 65 Pulse Source NIBP Intake Visit Reasons: ABN EKG (UNA) Unified Communications Engineer Required: No Accompanied by: Self Is patient in pain?: Yes (spinal stenosis with walking) Allergies cephalexin (From Keflex) Allergy (Verified 10/07/24 11:14) Rash Sulfa (Sulfonamide Antibiotics) Allergy (Verified 10/07/24 11:14) Rash adhesive tape Adverse Reaction (Unknown, Verified 10/07/24 11:14) Unknown chocolate flavor Adverse Reaction (Unknown, Verified 10/07/24 11:14) Unknown Medications ?Medication ?Instructions ?Recorded ?Confirmed ?Type aspirin 81 mg chewable tablet 81 mg PO 06/02/17 History fenofibrate nanocrystallized 145 145 mg PO DAILY 06/0210/07/24 History mg tablet hydrochlorothiazide 25 mg tablet 25 mg PO DAILY 10/07/24 History barzrmoa-ptrt-pev-folic acid 18 1 ea PO DAILY 06/02/17 10/07/24 History mg-0.4 mg tablet tamsulosin 0.4 mg capsule 1 tab PO BID 06/02/17 History cyclobenzaprine 10 mg tablet 5 mg PO TID PRN 06/15/17 10/07/24 History magnesium oxide 400 mg PO QDAY 06/15/1709/25 History metoprolol tartrate 100 mg tablet 100 mg PO BID 10/07/24 History doxazosin 4 mg tablet 4 mg PO DAILY 08/14/1910/07 History amlodipine 10 mg tablet 10 mg PO QDAY 10/01/2410/07 History cholecalciferol (vitamin D3) 125 125 mcg PO QDAY 10/0110/07/24 History mcg (5,000 unit) capsule lansoprazole 30 mg capsule,delayed mg PO 10/01/2409/25 History release triamcinolone acetonide 0.1 % 1 applic topical BID PRN 10/01/24 10/07/24 History topical cream Ejection fraction %: 65 Have you fallen in the past year?: No PFSH Medical History Abdominal aortic aneurysm (AAA) Actinic keratosis Rojas esophagus BPH (benign prostatic hyperplasia) Bradycardia Chronic renal impairment CKD (chronic kidney disease) stage 3, GFR 30-59 ml/min Colon polyp Diverticulitis Essential hypertension GERD (gastroesophageal reflux disease) Hypercholesterolemia Hyperlipidemia Hypertension Hypomagnesemia Impaired fasting glucose LBBB (left bundle branch block) Left leg weakness Low back pain Normocytic anemia Obesity Palpitations Renal artery aneurysm Sciatica Sinus bradycardia Testicular seminoma Surgical History History of aortic aneurysm repair History of cataract extraction History of cholecystectomy History of orchiectomy Hx of appendectomy Family History Father Heart disease Myocardial infarction, Onset Age: 64 CHF (congestive heart failure) Mother COPD (chronic obstructive pulmonary disease) Cancer Emphysema, unspecified Brother COPD (chronic obstructive pulmonary disease) Cancer Emphysema, unspecified Social History Smoking Status: Former smoker alcohol intake: never substance use type: does not use caffeine: Yes what type of physical activity do you participate in: walking ROS Const Const: Positive for fatigue and weakness; Negative for headache(s) or weight gain ENT ENT: Negative for headache(s), dizziness, Nosebleed/epistaxis or balance problems Cardio Chest Pain: No Palpitations: Yes Edema: None Muscle aches with walking: None Resp Respiratory: Positive for SOB with activity; Negative for SOB at rest or SOB orthopneaundefinedSOB lying down GI GI: Negative nausea, vomiting or heartburn Musc Musc: Positive for joint pain (spinal stenosis); Negative for muscle aches/ myalgia, muscle weakness or balance problems Neuro Neuro: Positive for lightheadedness, near syncope and weakness; Negative for dizziness, syncope or headache(s) Endo Endo: Positive for fatigue Cardiology Exam Const Appearance: comfortable and no acute distress Nutritional Appearance: well nourished Neck Neck: no JVD Carotids: Negative bruit Chest Auscultation: Bilateral: Clear to Auscultation Cardio Rate: regular rate Rhythm: regular rhythm Heart sounds: S1 normal and S2 normal 2/6 systolic murmur at base. Neuro General: patient alert, patient awake and patient oriented x3 Extremities Lower Extremity Edema: None: Bilateral Supplemental Info Supplemental Information Echocardiogram 09/01/2022: Interpretation Summary Mild concentric left ventricular hypertrophy. The left ventricular ejection fraction is 65 %. 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 Mild tricuspid valve insufficiency. Moderately dilated aortic root. Stress Test Report 06/21/2017: Conclusion: Normal pharmacologic myocardial perfusion stress test. Preserved ejection fraction. CTA Abdomen w/wo Contrast 06/02/2017: Impression: 1. Abdominal aortic aneurysm measuring up to 5.4 cm in diameter and 9.6 cm in length. No evidence of acute leak or rupture. 2. 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 3. Hepatomegaly and fatty liver. Holter Report 03/22/2011: Summary: Bundle branch block pattern. The basic rhythm was sinus at an average rate of 72bpm, maximum rate 106 bpm, minimum rate 53 bpm. Percentage of beats in bradycardia 12%, tachycardia 6%, Supraventricular beats totaled 13 all seen in isolation. Ventriculart beats totaled 192 seen as 190 isolated VE's, and on VE pair. No cardiac symptoms or events were recorded. Longest RR was incorrectly calculated due to artifact and is not reliable. Assessment and Plan Assessment and Plan (1) Dyspnea on exertion: Status: Chronic Plan: Check echocardiogram. Check Lexiscan stress Myoview. (2) Mitral valve regurgitation: Status: Chronic Plan: Check echocardiogram. (3) Hypertension: Status: Chronic Plan: On doxazosin, metoprolol and hydrochlorothiazide. Also on amlodipine. (4) CKD (chronic kidney disease) stage 3, GFR 30-59 ml/min: Status: Chronic Plan: Follow as per nephrology/internal medicine. Check complete metabolic panel. (5) Obesity: Status: Chronic Plan: Lose weight. (6) Dyslipidemia: Status: Chronic Plan: Fenofibrate. Continue to manage as per PCP. (7) History of AAA (abdominal aortic aneurysm) repair: Status: Chronic Plan: As per vascular surgery. Orders: Orders 12 Lead EKG performed by BMS Today I44.7 - Left bundle-branch block, unspecified, R00.1 - Bradycardia, unspecified Plan Details Follow Up: 3 Months Coding Level of Care Code Off vis,new,level 4 Diagnoses Dyspnea on exertion R06.09 Mitral valve regurgitation I34.0 Hypertension I10 CKD (chronic kidney disease) stage 3, GFR 30-59 ml/min N18.30 Obesity E66.9 Dyslipidemia E78.5 History of AAA (abdominal aortic aneurysm) repair Z98.890 Coding Level of Care Code Off vis,new,level 4 Diagnoses Dyspnea on exertion R06.09 Mitral valve regurgitation I34.0 Hypertension I10 CKD (chronic kidney disease) stage 3, GFR 30-59 ml/min N18.30 Obesity E66.9 Dyslipidemia E78.5 History of AAA (abdominal aortic aneurysm) repair Z98.890 Clinical Quality Measures Falls Risk Screening/Assistive Devices Have you fallen in the past year?: No Cardiac Ejection fraction %: 65 10/07/24 1134 <Electronically signed by Gurpreet Aggarwal MD> Date _ Gurpreet Aggarwal MD Cosigner Signature: Date (if applicable) CC: JEANCARLOS Barboza ~ [facility] [employer] Work Phone: History of Present illness Narrative 05-01-2024 Dione Vanegas RT(R) - 05/01/2024 2:00 PM EST Note Date & Type Note Facility 05-01-2024 History of Presen t illness Narrative Radiology Service Progress Note PATIENT NAME: Yanick Vaughn DATE OF SERVICE: May 01, 2024 TIME: 2:35 PM PATIENT IDENTITY VERIFICATION COMPLETED USING TWO (2) IDENTIFIERS: Name and Date of confirmed by patient verbally. FALL SCREENING: Has the patient had 2 falls in the last year or 1 fall with injury or currently using an Ambulatory Assistive Device (Walker, Cane, Wheelchair, Crutches, etc.)? No PATIENT GENDER DATA: Male PATIENT RELEVANT IMPLANT DATA REVIEWED: Not Applicable PATIENT PRESENTS WITH AN IMPLANTABLE OR ATTACHED URBAN AND REGIONAL PLANNER: No RADIOLOGY DEPARTMENT: General X-ray: Exam(s) Completed: Spine X-Ray(s): Lumbar AP / LAT / L5-S1 / OBL / FLEX-EXT Pelvis X-Ray: Pelvis with Hip Bilateral PERIPHERAL IV DATA: Not applicable SIGNED BY: RT Sarai(R) May 01, 2024 2:35 PM documented in this encounter [facility] Clinical Note 02-22-2021 Note Date & Type Note Facility 02-22-2021 Note Patient Outreach ([facility] [place] YANICK VAUGHN ([id number]) 1940 M Date Time Provider Department 02/22/21 [facility] During your visit today, we recorded the following information about you: Cheli Leija 02/22/2021 10:06 AM Signed COVID COMMUNITY MONITORING PROGRAM Provider Action/FYI: Monitoring Call: Date of symptoms onset: 02/18/21 Patient is COVID-19 positive Contact made with patient Yes Patient identified by name and . Discussed care with patient Initial intake? Yes (Positive) - Almaz, my name is Cheli Leija and I am calling from the [facility]. I am calling to notify you that your COVID-19 testing was positive. I understand this is worrisome to you and want you to know we are here to help you. I am contacting you to help you understand what this means, monitor if you are getting better or worse and how we can work together to help you recover. Also, your local health department will also be contacting you, if they have not yet already. The Health Department will provide you with important information and help you and your family work through this infection. It is very important to talk with them and provide any needed information. In some cases, your employer may provide additional guidance as well Diagnosed with COVID-19 on 02/21/2021 Symptom start date: 02/18/2021 Confirm PCP: Chris Nix MD Are you able to follow the quarantine guidelines? Yes If needed, we can help get you scheduled with your PCP for a follow-up appointment if you are still symptomatic in 10-14 days. If you do not have a PCP we can arrange one for you. If you have a non-[facility] PCP, please follow up with them as needed. Your PCP will need to provide guidance to you on discontinuation of quarantine and what you may need to return to work. You may not need an appointment to get what you need so please contact your PCP with questions specific to both when you are clinically recovered. (For [facility] Caregivers only: Occupational Health will provide the guidance to you on return to work and discontinuation of isolation). SYMPTOMS: NOTE TO CAREGIVER: ANSWER THE COVID-19 Caregiver Monitoring FLOWSHEET AND COVID Disposition QUESTIONS NOW OUTCOME: COVID-19 Caregiver Adult Monitoring COVID-19 Monitoring 02/22/2021 Caregiver Entered Response Yes Are you feeling short of breath today? No Are you having a cough today? No Are you vomiting? No Are you experiencing diarrhea? No Highest Temperature - last 24 hours? (Caregiver Entered) 98 Do you have a pulse oximeter / Oxygen Monitor at home No Temperature (Patient Entered) (None) SpO2 (Patient Entered) (None) We would like to make sure you have what you need so that your basic needs are met- including your personal safety, food, housing and medications?? Would you like to speak with a social work team foreman to help give you support for any of these needs? No It can be normal to feel anxious or down during a time like this. Would you like to talk to a mental health professional about how you have been feeling? 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 We want to work with you to ensure that we are keeping your medical conditions well-controlled and to keep you healthy and out of the doctor's office or hospital. Our team would like to stay connected with you to make sure you are feeling well. If you are worsening in any way please call your Primary Care Provider right away. - [facility] 24 Hour Appointment Line at [phone] - Your PCP office - Express Care Online for a virtual visit 18/12 Caregivers may call: ? [facility] Employee Hotline: [phone] Patient verbalizes understanding of information provided. Denies any further questions at this time. Please visit CDC.gov website for any updated information about Coronavirus. You can also find information on the [facility] website. Additional information can be found on the [facility] and [facility] web sites: https://www.cdc.gov/coronavirus/2019-nCoV /index.html [email or web address]/coronavirus End outreach Allergies As of Date: 02/22/2021 Noted Allergy Reaction ADHESIVE TAPE (ROSINS) 08/14/2019 16 - Unknown CEPHALEXIN 08/14/2019 2 - Rash CHOCOLATE 08/14/2019 16 - Unknown SULFA (SULFONAMIDE ANTIBIOTICS) 03/16/2011 2 - Rash 16 - Unknown Date Reviewed: 02/21/2021 Reviewed by: Mandy Diaz RN - Fully Assessed Reason for Visit: Covid Follow Up [3887] Cmt: ED COVID Notification Prescriptions as of 02/22/2021 - omeprazole (PRILOSEC) 20 mg capsule Take 20 mg by mouth twice daily. - tamsulosin ER (FLOMAX) 0.4 mg cap Take 0.4 mg by mouth twice daily. - metoprolol tartrate, short acting, (LOPRESSOR (more content not included)... [facility] Progress note 02-22-2021 Note Date & Type Note Facility 02-22-2021 Note HNO ID: [id number] Author: Cheli Leija Service: ? Author Type: ? Type: Progress Notes Filed: 02/22/2021 10:06 AM Note Text: COVID COMMUNITY MONITORING PROGRAM Provider Action/FYI: Monitoring Call: Date of symptoms onset: 02/18/21 Patient is COVID-19 positive Contact made with patient Yes Patient identified by name and . Discussed care with patient Initial intake? Yes (Positive) - Almaz, my name is Cheli Leija and I am calling from the [facility]. I am calling to notify you that your COVID-19 testing was positive. I understand this is worrisome to you and want you to know we are here to help you. I am contacting you to help you understand what this means, monitor if you are getting better or worse and how we can work together to help you recover. Also, your local health department will also be contacting you, if they have not yet already. The Health Department will provide you with important information and help you and your family work through this infection. It is very important to talk with them and provide any needed information. In some cases, your employer may provide additional guidance as well Diagnosed with COVID-19 on 02/21/2021 Symptom start date: 02/18/2021 Confirm PCP: Chris Nix MD Are you able to follow the quarantine guidelines? Yes If needed, we can help get you scheduled with your PCP for a follow-up appointment if you are still symptomatic in 10-14 days. If you do not have a PCP we can arrange one for you. If you have a non-[facility] PCP, please follow up with them as needed. Your PCP will need to provide guidance to you on discontinuation of quarantine and what you may need to return to work. You may not need an appointment to get what you need so please contact your PCP with questions specific to both when you are clinically recovered. (For [facility] Caregivers only: Occupational Health will provide the guidance to you on return to work and discontinuation of isolation). SYMPTOMS: NOTE TO CAREGIVER: ANSWER THE COVID-19 Caregiver Monitoring FLOWSHEET AND COVID Disposition QUESTIONS NOW OUTCOME: COVID-19 Caregiver Adult Monitoring COVID-19 Monitoring 02/22/2021 Caregiver Entered Response Yes Are you feeling short of breath today? No Are you having a cough today? No Are you vomiting? No Are you experiencing diarrhea? No Highest Temperature - last 24 hours? (Caregiver Entered) 98 Do you have a pulse oximeter / Oxygen Monitor at home No Temperature (Patient Entered) (None) SpO2 (Patient Entered) (None) We would like to make sure you have what you need so that your basic needs are met- including your personal safety, food, housing and medications?? Would you like to speak with a social work team foreman to help give you support for any of these needs? No It can be normal to feel anxious or down during a time like this. Would you like to talk to a mental health professional about how you have been feeling? No ACTION TAKEN No action taken STUDY SPECIALIST Patient Milant status is: Active account Thank you for taking the time to talk with me today. We want to work with you to ensure that we are keeping your medical conditions well-controlled and to keep you healthy and out of the doctor's office or hospital. Our team would like to stay connected with you to make sure you are feeling well. If you are worsening in any way please call your Primary Care Provider right away. - [facility] 24 Hour Appointment Line at [phone] - Your PCP office - Express Care Online for a virtual visit 18/12 Caregivers may call: ? [facility] Employee Hotline: [phone] Patient verbalizes understanding of information provided. Denies any further questions at this time. Please visit CDC.gov website for any updated information about Coronavirus. You can also find information on the [facility] website. Additional information can be found on the [facility] and [facility] web sites: https://www.cdc.gov/coronavirus/2019-nCoV /index.html [email or web address]/coronavirus End outreach [facility] Evaluation note Note Date & Type Note Facility Evaluation note No assessment information availa [facility] Work Phone: Evaluation note Note Date & Type Note Facility Evaluation note Diagnosis Onset Date Resolution CKD (chronic kidney disease) stage 3, GFR 30-59 ml/min chronic October 07, 2024 10:57am Dyslipidemia chronic October 07 10:57am Dyspnea on exertion chronic September 252024 10:57am History of AAA (abdominal aortic aneurysm) repair chronic October 07, 2024 10:57am Hypertension chronic October 07 10:57am Mitral valve regurgitation chronic October 07, 2024 10:57am Obesity chronic October 07, 2024 10:57am [facility] Work Phone: Reason for referral (narrative) Note Date & Type Note Facility Reason for referral (narrative) No reason for referral information available [employer] [facility] Work Phone: Summary Purpose Family History No Family History Records Found Relationship Condition Age at Onset Recorded Date/T mildred father Cardiac disease Unknown Myocardial infarction 64 Relationship Condition Age at Onset Recorded Date/T mildred father Cardiac disease Unknown Myocardial infarction 64 Congestive heart failure Unknown mother Chronic obstructive pulmonary disease Unk nown Malignant neoplasm Unknown Pulmonary emphysema Unknown brother Chronic obstructive pulmonary disease Unk nown Advance Directives No Advanced Directives Records Found Advance Directive Response Recorded Date/ Time Living Will Yes June 02 8 9:41am Power of Vehicle Maintenance Technician Yes June 02 9:41am Chief Complaint and Reason for Visit Chief Complaint Admit Date ABN EKG (UNA) October 07, 2024 10:57 am EORDER- October 07, 2024 12:51 pm Reason for Visit Admit Date CKD (chronic kidney disease) stage 3, GF R 30-59 ml/min October 07, 2024 10:57am Dyslipidemia October 07, 2024 10:57 am Dyspnea on exertion October 07, 2024 10:57 am History of AAA (abdominal aortic aneurys m) repair October 07, 2024 10:57am Hypertension October 07, 2024 10:57 am Mitral valve regurgitation October 07 10:57am Obesity October 07, 2024 10:57 am Chief Complaint EORDER Chief Complaint EORDER CARDIAC MURMUR Chief Complaint Admit Date ABN EKG (UNA) October 07, 2024 10:57 am Additional Source Comments (unrecognized sect ion and content) No Status Records FoundNo Status Records FoundNo Status Records FoundNo Status Records FoundNo Status Records FoundNo Status Records Found INFORMATION SOURCE (unrecogn ized section and content) DATE CREATED AUTHOR 05/06/2018 [facility] DATE CREATED AUTHOR AUTHOR'S ORGANIZ ATION 08/23/2020 [facility] DATE CREATED AUTHOR AUTHOR'S ORGANIZ ATION 02/24/2021 [facility] DATE CREATED AUTHOR AUTHOR'S ORGANIZ ATION 05/05/2021 [facility] DATE CREATED AUTHOR AUTHOR'S ORGANIZ ATION 07/05/2021 [facility] DATE CREATED AUTHOR AUTHOR'S ORGANIZ ATION [facility] Care Teams (unrecognized sec tion and content) Team Status: Active Member Role Status Dates Dr. Chris Nix MD Family Provider Active Mandy Billings DO Primary Care Provider Active Team Status: Inactive Member Role Status Dates Mandy Billings DO Primary Care Provi chasity, Attending Provider, Referring Provider Active Team Status: Active Member Role Status Dates Mandy Billings DO Primary Care Provider Active Dr. Gurpreet Aggarwal MD Attending Provider Active Team Status: Active Member Role Status Dates Dr. 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 Gurpreet Aggarwal MD Attending Provider Active Start: October 07, 2024 End: October 07, 2024 Team Status: Active Member Role Status Dates Suze Barboza NP-[place] Primary Care Provider Active Team Status: Inactive Member Role Status Dates Suze Barboza NP-[place] Primary Care Provider Active Start: October 07, 2024 End: October 07, 2024 Dr. Gurpreet Aggarwal MD Attending Provider Active Start: October 07, 2024 End: October 07, 2024 Dr. Gurpreet Aggarwal MD Referring Provider Active Start: October 07, 2024 End: October 07, 2024 Goals (unrecognized section and content) Goals may be documented in a n alternate sectionGoals may be documented in an alternate sectionGoals may be documented in an alternate sectionGoals may be documented in an alternate sectionGoals may be documented in an alternate section Source Comments (unrecognize d section and content) In the event this informatio n is protected by the Federal Confidentiality of Alcohol and Drug Abuse Patient Records regulations: The Federal rules restrict any use of the information to criminally investigate or prosecute any alcohol or drug abuse patient.[facility] FOR RECORDS PERTAINING TO PATIENTS WHO ARE OR HAVE BEEN ENROLLED IN A CHEMICAL DEPENDENCY/SUBSTANCEABUSE PROGRAM, SOME INFORMATION MAY BE OMITTED. This clinical summary was aggregated from multiple sources. Caution should be exercised in using it in the provision of clinical care. This summary normalizes information from multiple sources, and as a consequence, information in this document may materially change the coding, format and clinical context of patient data. In addition, data may be omitted in some cases. CLINICAL DECISIONS SHOULD BE BASED ON THE PRIMARY CLINICAL RECORDS. [facility] [employer] [facility]. provides no warranty or guarantee of the accuracy or completeness of information in this document.
--- NOTE | 2024-11-17 06:35 | ECHOD_ITS ---
Reason For Study Reason For Study: OTHER Procedure This was a 2D Doppler, Color Flow transthoracic echocardiogram. The study was technically difficult. Exam performed in department. Left Ventricle Normal LV size. Moderate concentric left ventricular hypertrophy. The LV ejection fraction is 55 %. Stage 1 diastolic dysfunction. Septal motion consistent with bundle branch block. Right Ventricle Normal right ventricle. Atria The left and right atria are normal. Mitral Valve Trivial mitral valve insufficiency. Tricuspid Valve Trivial tricuspid valve insufficiency. Normal pulmonary artery pressure. Aortic Valve Mildly elevated aortic valve mean peak gradient 88 mmHg however valve leaflets open normally. Pulmonic Valve The pulmonic valve is not well visualized. Great Vessels Mildly dilated aortic root. Pericardium/Pleural No pericardial effusion. MMode/2D Measurements & Calculations LVIDd: 4.2 cm IVSd: 1.6 cm LVOT diam: 2.0 cm LVIDs: 2.9 cm LVPWd: 1.5 cm LVOT area: 3.1 cm2 FS: 31.8 % Ao root diam: 4.0 cm LAV(MOD-bp): 25.8 ml LVAd ap4: 26.4 cm2 LAV(MOD-bp) Indexed: 12.0 ml/m2 LVLd ap4: 8.1 cm LAV(MOD-sp2): 31.7 ml EDV(MOD-sp4): 68.7 ml LAV(MOD-sp4): 19.9 ml EDV(sp4-el): 73.0 ml LVAs ap4: 15.9 cm2 LVLs ap4: 7.1 cm ESV(MOD-sp4): 28.8 ml ESV(sp4-el): 30.1 ml EF(MOD-sp4): 58.0 % EF(sp4-el): 58.7 % SV(MOD-sp4): 39.8 ml SV(sp4-el): 42.9 ml LA A4 area: 10.5 cm2 SI(MOD-sp4): 18.5 ml/m2 LA dimension(2D): 3.3 cm RA A4 area: 8.5 cm2 Time Measurements MV dec time: 0.09 sec Doppler Measurements & Calculations MV E max rolf: 48.7 cm/sec Lat Peak E' Rolf: 8.6 cm/sec Med Peak E' Rolf: 7.4 cm/sec MV A max rolf: 106.9 cm/sec E/E' lat: 5.7 E/E' med: 6.6 MV E/A: 0.46 MV V2 max: 145.6 cm/sec Ao V2 max: 175.4 cm/sec MV max P.5 mmHg MV dec slope: 570.0 cm/sec2 Ao max P.3 mmHg MV V2 mean: 87.4 cm/sec Ao V2 mean: 129.5 cm/sec MV mean P.6 mmHg Ao mean P.6 mmHg MV V2 VTI: 20.9 cm Ao V2 VTI: 30.0 cm AV (velocity ratio): 0.99 MVA(VTI): 4.3 cm2 LARISSA(I,D): 3.0 cm2 LARISSA(V,D): 2.7 cm2 LV V1 max: 152.5 cm/sec SV(LVOT): 91.0 ml PA V2 max: 184.0 cm/sec LV V1 max P.3 mmHg PA V2 mean: 126.3 cm/sec LV V1 mean P.0 mmHg LV V1 mean: 128.0 cm/sec LV V1 VTI: 29.7 cm TR max rolf: 265.3 cm/sec TR max P.2 mmHg ECHO/Echo Complete Interpretation Summary The study was technically difficult. Moderate concentric left ventricular hypertrophy. The LV ejection fraction is 55 %. Stage 1 diastolic dysfunction. Mildly elevated aortic valve mean peak gradient 88 mmHg however valve leaflets open normally. Mildly dilated aortic root. Ordering Physician: Gurpreet Aggarwal Referring Physician: Gurpreet Aggarwal Performed By: Deborah Che RCS
--- NOTE | 2024-11-17 10:19 | STRESSREP ---
Stress Test Report Date: 11/17/2024 Procedure: Pharmacologic stress nuclear imaging study Indications: Arrhythmia Consent: Per the patient Procedure: The patient underwent pharmacologic (Regadenoson 0.4mg ) evaluation with a peak heart rate of 96 beats per minute (69%predicted maximal heart rate) and a peak blood pressure of 150/82 mmHg. The baseline ECG demonstrated sinus rhythm with first-degree AV block and left bundle branch block. The peak pharmacologic ECG was nondiagnostic secondary to baseline abnormalities. PVCs noted during pharmacologic infusion and in recovery. There was no complaint of chest discomfort during pharmacologic infusion or recovery. The patient was injected with 14.4 millicuries of technetium 99m Cardiolite and subsequently rest SPECT Cardiolite nuclear imaging was obtained in the horizontal long, vertical long, and short axis views. The patient underwent pharmacologic (Regadenoson) evaluation. The patient was injected with 44.9 millicuries of technetium 99m Cardiolite and subsequently stress SPECT Cardiolite nuclear imaging was obtained in the horizontal long, vertical long, and short axis views. A gated Cardiolite study at peak stress was obtained. The examination was stopped secondary to completion of protocol. Rest and stress SPECT Cardiolite nuclear imaging status post realignment, normalization, and attenuation correction demonstrate no fixed or reversible perfusion defects. There is end systolic thickening and brightening. The gated Cardiolite study demonstrates myocardial thickening and inward wall motion. The reported LVEF is 63%. Impression: 1. Pharmacologic (Regadenoson) evaluation 2. Peak pharmacologic ECG with no diagnostic changes. Baseline ECG with left bundle branch block and first-degree AV block. 3. PVCs noted during pharmacologic infusion and in recovery. 5. Rest and stress SPECT Cardiolite nuclear imaging demonstrate relative uniform tracer uptake and myocardial perfusion appearing within normal limits. 6. The gated Cardiolite study reports an LVEF of 63%. This note was generated with [employer] software. It may contain incorrect words, spelling, and punctuation that were not noted in checking the note before signing.
== END | disposition home or self-care (01) ==
PROVIDERS: PCP Nurse Practitioner Family; Referring Provider Internal Medicine Cardiovascular Disease; Visit Provider Internal Medicine Cardiovascular Disease
DX: R06.09 Other forms of dyspnea (principal); I44.7 Left bundle-branch block, unspecified; R00.2 Palpitations; R00.1 Bradycardia, unspecified
CPT/HCPCS: 78452; 93017; 93306; A9500; A4216; J2785

== ENCOUNTER → 2025-01-03 | Outpatient (CLI) | payer MEDICARE, BC, SELFPAY ==
--- OUTSIDE RECORDS SUMMARY | 2025-01-03 09:15 | XMS RPT_ITS | CCD ---
Author Organization [facility] CliniSyme Care Team Providers Care Slot Tag Inserter Name Role Phone PLECHA, AMANDA Unavailable Unavailable [...] Care Provider Dr. Gurpreet Aggarwal Attending Provider [phone] Chris Nix MD Primary Care Provider [phone] Una DEPUTY CONTROLLER-C, [place] Primary Care Provider Una DEPUTY CONTROLLER-C, Suze Referring Provider Dr. Gurpreet Aggarwal MD Attending Provider [phone] Dr. Gurpreet Aggarwal MD Referring Provider [phone] Dr. Gurpreet Aggarwal MD Other Provider [phone] Una, Suze Primary Care Unavailable SANTHOSH, ZAKI Referring Unavailable SANTHOSH, ZAKI Attending Unavailable JasenGurpreet Attending Unavailable Una, Suze Primary Care Unavailable Jasen, Gurpreet Referring Unavailable Jasen, Gurpreet Attending Unavailable Una, Suze Primary Care Unavailable Jasen, Gurpreet Referring Unavailable Jasen, Gurpreet Referring Unavailable Jasen, Gurpreet Attending Unavailable Una, Suze Primary Care Unavailable Jasen, Gurpreet Consulting Unavailable Jasen, Gurpreet Attending Unavailable Una, Suze Referring Unavailable Una, Suze Primary Care Unavailable Allergies Allergy Classification Reported Allergen(s) Allergy Type Date of Onset Reaction(s) Facility (7 sources) Adhesive Tape; Translations: [adhesive tape] Propensity to adverse reactions 0 Unknown [facility] (7 sources) Cephalexin Drug Allergy 0 Rash [facility] (7 sources) Chocolate; Translations: [chocolate flavor] Propensity to adverse reactions 0 Unknown [facility] (6 sources) Sulfonamides (Antibiotic) Allergy to substance 0 Rash [facility] (1 source) Adhesive Tape Allergy to substance 0 Unknown [facility] (1 source) Chocolate Food Allergy 0 Unknown [facility] (1 source) Sulfonamides (Antibiotic) Propensity to adverse reactions to drug 1 Rash, Unknown [facility] (1 source) Cephalexin Drug Allergy 5 [facility] (1 source) Sulfonamides (Antibiotic) Drug allergy (disorder) 5 [facility] Medications Current Medications Medication Drug Class(es) Dates Sig (Normalized) Sig (Original) amLODIPine 10 mg oral tablet (10 sources) Dihydropyridine Calcium Channel Tate Start: 10-01-2024 take 1 tablet by mouth once daily Amlodipine 10 mg tablet Active 10 mg PO daily October 01, 2024 12:00am Start: 06-18-2017 End: 10-01-2024 take 1 tablet by mouth once daily Amlodipine 2.5 mg tablet Discontinued 2.5 mg PO daily June 18, 2017 1:00am October 01, 2024 3:54pm take 1 tablet by el th twice daily amLODIPine (NORVASC) 5 mg tablet Take 5 mg by mouth twice daily. Active aspirin 81 mg chewable tablet (7 sources) Platelet Aggregation Inhibitor, Nonsteroidal Anti-inflammatory Drug Start: 06-02-2017 Aspirin 81 MG tablet,chewable Active 81 mg PO June 02, 2017 1:00am cholecalciferol 0.125 mg oral capsule (9 sources) Vitamin D Start: 10-01-2024 take 1 [...] 3:59pm cyclobenzaprine hydrochloride 10 mg oral tablet (7 sources) Muscle Relaxant Start: 06-15-2017 take 5 [...] needed. Active doxazosin 4 mg oral tablet (6 sources) alpha-Adrenergic Tate Start: 08-14-2019 take 1 tablet by mouth once daily Doxazosin 4 mg tablet Active 4 mg PO DAILY August 14, 2019 12:00am fenofibrate 145 mg oral tablet (7 sources) Peroxisome Proliferator Receptor alpha Agonist Start: 06-02-2017 take 1 tablet by mouth once daily Fenofibrate Nanocrystallized 145 MG tablet Active 145 mg PO DAILY June 02, 2017 1:00am hydroCHLOROthiazide 25 mg oral tablet (7 sources) Thiazide Diuretic Start: 06-02-2017 take 1 tablet by mouth once daily Hydrochlorothiazide 25 MG tablet Active 25 mg PO DAILY June 02, 2017 1:00am lansoprazole 30 mg delayed release oral capsule (3 sources) Proton Pump Inhibitor Start: 10-01-2024 Lansoprazole 30 mg capsule,delayed release(DR/EC) Active mg PO October 01, 2024 12:00am Magnesium (1 source) take 2 tablets by mouth once daily Magnesium 250 mg tab Take 500 mg by mouth once daily. Active magnesium oxide 400 mg oral capsule (12 sources) Start: 06-15-2017 take 1 capsule by mouth once daily Magnesium Oxide 400 mg capsule Active 400 mg PO daily June 15, 2017 1:00am Start: 06-02-2017 End: 06-15-2017 take 1 tablet by mouth twice daily Magnesium Oxide 250 MG tablet Discontinued 250 mg PO TWICE A DAY June 02, 2017 1:00am June 15, 2017 12:47pm metoprolol tartrate 100 mg oral tablet (13 sources) beta-Adrenergic Tate Start: 06-18-2017 take 1 tablet by mouth twice daily Metoprolol Tartrate 100 mg tablet Active 100 mg PO TWICE A DAY June 18, 2017 1:00am Start: 06-02-2017 End: 06-18-2017 take 1 tablet by mouth twice daily Metoprolol Tartrate 50 MG tablet Discontinued 50 mg PO TWICE A DAY June 02, 2017 1:00am June 18, 2017 11:38am Nopxdhjp-Osbf-Tlj-Folic Acid (3 sources) Start: 06-02-2017 Eimkmeyb-Njca-Ufc-Folic Acid Active 1 EACH PO DAILY June 02, 2017 1:00am Zczhpavv-Cbtm-Xsk-Folic Acid 1 EACH tablet (3 sources) Start: 06-02-2017 take 1 tablet by mouth once daily Szdldnad-Yqvq-Dzh-Folic Acid 1 EACH tablet Active 1 NMA PO DAILY June 02, 2017 1:00am tamsulosin hydrochloride 0.4 mg oral capsule (7 sources) alpha-Adre nergic Tate Start: 06-02-2017 Tamsulosin 0.4 MG capsule Active 1 {tbl} PO TWICE A DAY June 02, 2017 1:00am Start: 06-02-2017 take 1 tablet by el twice daily Tamsulosin Active 1 TABLET PO TWICE A DAY June 02, 2017 1:00am triamcinolone acetonide 1 mg/ml topical cream (3 sources) Corticosteroid Start: 10-01-2024 Triamcinolone Acetonide 0.1 % cream Active 1 NMA TOPICAL TWICE A DAY as needed October 01, 2024 12:00am apply to affected area 2 times per day as needed Completed/Discontinued Medications Medication Drug Class(es) Dates Sig (Normalized) Sig (Original) azithromycin 250 mg oral tablet (6 sources) Macrolide Antimicrobial Start: 08-14-2019 End: 10-01-2024 Azithromycin 250 mg tablet Discontinued 250 mg PO daily August 14, 2019 12:00am October 01, 2024 3:55pm 2 tablets today, then 1 tablet daily on days 2 through 11 colestipol hydrochloride 1000 mg oral tablet (6 sources) Bile Acid Sequestrant Start: 08-14-2019 End: 10-01-2024 take 1 tablet by mouth once Colestipol 1 gram tablet Discontinued 1 g PO ONCE August 14, 2019 12:00am October 01, 2024 4:00pm swallow whole tab w/any liquid;do not crush/chew/cut;adm inister other meds 1hr before/4hr after taking dose fexofenadine hydrochloride 60 mg oral tablet (13 sources) Histamine-1 Receptor Antagonist Start: 06-15-2017 End: 08-14-2019 take 1 tablet by mouth every twelve hours as needed Fexofenadine 60 mg tablet Discontinued 60 mg PO Q12H as needed June 18, 2017 11:38am August 14, 2019 5:28pm take 1 capsule by mo coh every twelve hours as needed FEXOFENADINE 60 MG CAP Take 60 mg by el th twice daily as needed. Active gabapentin 100 mg oral capsule (3 sources) Anti-epileptic Agent Start: 10-01-2024 End: 10-07-2024 take 1 capsule by mouth three times daily Gabapentin 100 mg capsule Discontinued 100 mg PO THREE TIMES A DAY October 01, 2024 12:00am October 07, 2024 11:09am loperamide hydrochloride 2 mg oral capsule (6 sources) Opioid Agonist Start: 08-14-2019 End: 10-01-2024 Loperamide (Imodium A-D) 2 mg capsule Discontinued 2 mg PO Q4H as needed August 14, 2019 12:00am October 01, 2024 4:00pm administer after each loose stool until symptoms controlled; do not exceed 8 mg per 24 hrs omeprazole 20 mg delayed release oral capsule (7 sources) Proton Pump Inhibitor Start: 06-02-2017 End: 08-14-2019 take 1 capsule by mouth twice daily Omeprazole 20 MG capsule Discontinued 20 mg PO TWICE A DAY June 02, 2017 1:00am August 14, 2019 5:28pm psyllium 520 mg oral capsule (9 sources) Start: 10-01-2024 End: 10-07-2024 Psyllium Husk (Daily Fiber) 0.52 gram capsule Discontinued 1.04 g PO TWICE A DAY October 01, 2024 12:00am October 07, 2024 11:10am Start: 08-14-2019 End: 10-01-2024 Psyllium Husk (Fiber (Psylli um Husk)) 0.4 gram capsule Discontinued 0.4 g PO DAILY August 14, 2019 12:00am October 01, 2024 3:59pm quinapril 20 mg oral tablet (18 sources) Angiotensin Converting Enzyme Inhibitor Start: 06-18-2017 [...] Episodic/Chronic Aortic; peripheral; and visceral artery aneurysms (9 sources) Abdominal aortic aneurysm; Translations: [Abdominal aortic aneurysm (AAA)] 06-15-2017 Chronic Comment on above: 5.4cm in diameter an d 9.6cm length CT of Abdomen 06/02/17 1.4cm May 2017 Cardiac dysrhythmias (15 sources) Sinus bradycardia; Translations: [Bradycardia, unspecified] Onset: 10-07-2024 06-15-2017 Episodic Chronic kidney disease (6 sources) Chronic kidney disease stage 3; Translations: [Stage 3 chronic kidney disease] 10-01-2024 Chronic Chronic kidney disease (1 source) Chronic kidney disease; Translations: [Chronic kidney disease, stage 3 unspecified] Onset: 10-07-2024 Conduction disorders (5 sources) Left bundle branch block; Translations: [Left bundle-branch block, unspecified] Onset: 10-07-2024 10-01-2024 Chronic Diabetes mellitus without complication (3 sources) Impaired fasting glycemia; Translations: [Impaired fasting glucose] 10-01-2024 Episodic Disorders of lipid metabolism (16 sources) Hyperlipidemia; Translations: [Hyperlipidemia, unspecified] Onset: 10-07-2024 06-15-2017 Chronic Esophageal disorders (1 source) 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; Translations: [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] Onset: 04-03-2024 Chronic Essential hypertension (13 sources) Hypertensive disorder; Translations: [Essential (primary) hypertension] Onset: 10-07-2024 06-15-2017 Chronic Heart valve disorders (8 sources) Mitral valve regurgitation; Translations: [Nonrheumatic mitral (valve) insufficiency] Onset: 10-07-2024 10-07-2024 Chronic Other connective tissue disease (3 sources) Monoparesis - leg; Translations: [Other symptoms and signs involving the musculoskeletal system] 10-01-2024 Episodic Other lower respiratory disease (6 sources) Dyspnea on exertion; Translations: [Other forms of dyspnea] 10-07-2024 Episodic Other lower respiratory disease (2 sources) Other forms of dyspnea; Translations: [Other forms of dyspnea] Onset: 11-26-2024 Episodic Other nutritional; endocrine; and metabolic disorders (6 sources) Obesity; Translations: [Obesity, unspecified] 10-07-2024 Chronic Other nutritional; endocrine; and metabolic disorders (1 source) Obesity, unspecified; Translations: [Obesity, unspecified] Onset: 10-07-2024 Chronic Residual codes; unclassified (3 sources) History of great vessel repair; Translations: [Other specified postprocedural states] 10-01-2024 Episodic Comment on above: 07/2017:Open with ao rta tube graft, 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 Residual codes; unclassified (6 sources) History of repair of aneurysm of abdominal aorta; Translations: [Other specified postprocedural states] 10-07-2024 Episodic Residual codes; unclassified (1 source) Other specified postprocedural states; Translations: [Other specified postprocedural states] Onset: 10-07-2024 Episodic Results Test Name Value Interpretation Reference Range Facility Cardiovascular stress test r eportOrdered By: Gurpreet Aggarwal on 11-17-2024 Study report [facility]ovascular Services [address] [place] [id number] MR#: [id number] Acct: [id number] Name: YANICK VAUGHN Rep #: [id number] : 1940 83 From: Gurpreet Aggarwal MD Primary Care: JEANCARLOS Vaughn Status: REG CLI Referring Dr: Gurpreet Aggarwal MD Sex: M C Stress Test Report Date: 11/17/2024 Procedure: Pharmacologic stress nuclear imaging study Indications: Arrhythmia Consent: Per the patient Procedure: The patient underwent pharmacologic (Regadenoson 0.4mg ) evaluation with a peak heart rate of 96 beats per minute (69%predicted maximal heart rate) and a peak blood pressure of 150/82 mmHg. The baseline ECG demonstrated sinus rhythm with first-degree AV block and left bundle branch block. The peak pharmacologic ECG was nondiagnostic secondary to baseline abnormalities. PVCs noted during pharmacologic infusion and in recovery. There was no complaint of chest discomfort during pharmacologic infusion or recovery. The patient was injected with 14.4 millicuries of technetium 99m Cardiolite and subsequently rest SPECT Cardiolite nuclear imaging was obtained in the horizontal long, vertical long, and short axis views. The patient underwent pharmacologic (Regadenoson) evaluation. The patient was injected with 44.9 millicuries of technetium 99m Cardiolite and subsequently stress SPECT Cardiolite nuclear imaging was obtained in the horizontal long, vertical long, and short axis views. A gated Cardiolite study at peak stress was obtained. The examination was stopped secondary to completion of protocol. Rest and stress SPECT Cardiolite nuclear imaging status post realignment, normalization, and attenuation correction demonstrate no fixed or reversible perfusion defects. There is end systolic thickening and brightening. The gatedCardiolite study demonstrates myocardial thickening and inward wall motion. Thereported LVEF is 63%. Impression: 1. Pharmacologic (Regadenoson) evaluation 2. Peak pharmacologic ECG with no diagnostic changes. Baseline ECG with left bundle branch block and first-degree AV block. 3. PVCs noted during pharmacologic infusion and in recovery. 5. Rest and stress SPECT Cardiolite nuclear imaging demonstrate relative uniform tracer uptake and myocardial perfusion appearing within normal limits. 6. The gated Cardiolite study reports an LVEF of 63%. This note was generated with HALKARation software. It may contain incorrectwords, spelling, and punctuation that were not noted in checking the note beforesigning. 11/17/24 1021 Date _ Gurpreet Aggarwal MD CC: DEPUTY CONTROLLER-C Suze Barboza; Dr. Gurpreet Aggarwal MD ~ Date Dictated: 11/17/241018 Date Transcribed: 11/17/241018 Inorganic Chemist: DANE Andersen [facility] Work Phone: Echo Completeon 11-17-2024 Echo Complete [facility] Cardiovascular Services [place] [address] Echo Complete 11/17/24 0923 MR#: [id number] Acct: [id number] Name: YANICK VAUGHN Rep #: [id number] : 1940 83 From: Gurpreet Aggarwal MD Attending Dr: Dr. Gurpreet Aggarwal MD Status: REG CLI Ordering Dr: Gurpreet Aggarwal MD Date: 11/17/24 Location: [facility] Sex: M C Admitted: Reason For Study Reason For Study: OTHER Procedure This was a 2D Doppler, Color Flow transthoracic echocardiogram. The study was technically difficult. Exam performed in department. Left Ventricle Normal LV size. Moderate concentric left ventricular hypertrophy. The LV ejection fraction is 55 %. Stage 1 diastolic dysfunction. Septal motion consistent with bundle branch block. Right Ventricle Normal right ventricle. Atria The left and right atria are normal. Mitral Valve Trivial mitral valve insufficiency. Tricuspid Valve Trivial tricuspid valve insufficiency. Normal pulmonary artery pressure. Aortic Valve Mildly elevated aortic valve mean peak gradient 88 mmHg however valve leaflets open normally. Pulmonic Valve The pulmonic valve is not well visualized. Great Vessels Mildly dilated aortic root. Pericardium/Pleural No pericardial effusion. MMode/2D Measurements Calculations LVIDd: 4.2 cm IVSd: 1.6 cm LVOT diam: 2.0 cm LVIDs: 2.9 cm LVPWd: 1.5 cm LVOT area: 3.1 cm2 FS: 31.8 % Ao root diam: 4.0 cm LAV(MOD-bp): 25.8 ml LVAd ap4: 26.4 cm2 LAV(MOD-bp) Indexed: 12.0 ml/m2 LVLd ap4: 8.1 cm LAV(MOD-sp2): 31.7 ml EDV(MOD-sp4): 68.7 ml LAV(MOD-sp4): 19.9 ml EDV(sp4-el): 73.0 ml LVAs ap4: 15.9 cm2 LVLs ap4: 7.1 cm ESV(MOD-sp4): 28.8 ml ESV(sp4-el): 30.1 ml EF(MOD-sp4): 58.0 % EF(sp4-el): 58.7 % SV(MOD-sp4): 39.8 ml SV(sp4-el): 42.9 ml LA A4 area: 10.5 cm2 SI(MOD-sp4): 18.5 ml/m2 LA dimension(2D): 3.3 cm RA A4 area: 8.5 cm2 Time Measurements MV dec time: 0.09 sec Doppler Measurements Calculations MV E max rolf: 48.7 cm/sec Lat Peak E' Rolf: 8.6 cm/sec Med Peak E' Rolf: 7.4 cm/sec MV A max rolf: 106.9 cm/sec E/E' lat: 5.7 E/E' med: 6.6 MV E/A: 0.46 MV V2 max: 145.6 cm/sec Ao V2 max: 175.4 cm/sec MV max P.5 mmHg MV dec slope: 570.0 cm/sec2 Ao max P.3 mmHg MV V2 mean: 87.4 cm/sec Ao V2 mean: 129.5 cm/sec MV mean P.6 mmHg Ao mean P.6 mmHg MV V2 VTI: 20.9 cm Ao V2 VTI: 30.0 cm AV (velocity ratio): 0.99 MVA(VTI): 4.3 cm2 LARISSA(I,D): 3.0 cm2 LARISSA(V,D): 2.7 cm2 LV V1 max: 152.5 cm/sec SV(LVOT): 91.0 ml PA V2 max: 184.0 cm/sec LV V1 max P.3 mmHg PA V2 mean: 126.3 cm/sec LV V1 mean P.0 mmHg LV V1 mean: 128.0 cm/sec LV V1 VTI: 29.7 cm TR max rolf: 265.3 cm/sec TR max P.2 mmHg ECHO/Echo Complete Interpretation Summary The study was technically difficult. Moderate concentric left ventricular hypertrophy. The LV ejection fraction is 55 %. Stage 1 diastolic dysfunction. Mildly elevated aortic valve mean peak gradient 88 mmHg however valve leaflets open normally. Mildly dilated aortic root. Ordering Physician: Gurpreet Aggarwal Referring Physician: Gurpreet Aggarwal Performed By: Deborah Che RCS 11/17/24 105 Date Gurpreet Aggarwal MD CC: DEPUTY CONTROLLER-C Suze Barboza; Dr. Gurpreet Aggarwal MD Date Dictated: 11/17/24922 Date Transcribed: 11/17/241054 Inorganic Chemist: Signed Normal [facility] Echocardiogram study reportO rdered By: Gurpreet Aggarwal on 11-17-2024 Study report [facility] [address] [facility] [place] [address] Echo Complete 11/17/24922 MR#: [id number] Acct: [id number] Name: YANICK VAUGHN Rep #:[id number] : 1940 83 From: Gurpreet Aggarwal MD Attending Dr: Dr. Gurpreet Aggarwal MD Status: REG I Ordering Dr: Gurpreet Aggarwal MD Date: Location: [facility] Sex: M C Admitted: Reason For Study Reason For Study: OTHER Procedure This was a 2D Doppler, Color Flow transthoracic echocardiogram. The study was technically difficult. Exam performed in department. Left Ventricle Normal LV size. Moderate concentric left ventricular hypertrophy. The LV ejection fraction is 55 %. Stage 1 diastolic dysfunction. Septal motion consistent with bundle branch block. Right Ventricle Normal right ventricle. Atria The left and right atria are normal. Mitral Valve Trivial mitral valve insufficiency. Tricuspid Valve Trivial tricuspid valve insufficiency. Normal pulmonary artery pressure. Aortic Valve Mildly elevated aortic valve mean peak gradient 88 mmHg however valve leaflets open normally. Pulmonic Valve The pulmonic valve is not well visualized. Great Vessels Mildly dilated aortic root. Pericardium/Pleural No pericardial effusion. MMode/2D Measurements & Calculations LVIDd: 4.2 cm IVSd: 1.6 cm LVOT diam: 2.0 cm LVIDs: 2.9 cm LVPWd: 1.5 cm LVOT area: 3.1 cm2 FS: 31.8 % Ao root diam: 4.0 cm LAV(MOD-bp): 25.8 ml LVAd ap4: 26.4 cm2 LAV(MOD-bp) Indexed: 12.0 ml/m2 LVLd ap4: 8.1 cm LAV(MOD-sp2): 31.7 ml EDV(MOD-sp4): 68.7 ml LAV(MOD-sp4): 19.9 ml EDV(sp4-el): 73.0 ml LVAs ap4: 15.9 cm2 LVLs ap4: 7.1 cm ESV(MOD-sp4): 28.8 ml ESV(sp4-el): 30.1 ml EF(MOD-sp4): 58.0 % EF(sp4-el): 58.7 % SV(MOD-sp4): 39.8 ml SV(sp4-el): 42.9 ml LA A4 area: 10.5 cm2 SI(MOD-sp4): 18.5 ml/m2 LA dimension(2D): 3.3 cm RA A4 area: 8.5 cm2 Time Measurements MV dec time: 0.09 sec Doppler Measurements & Calculations MV E max rolf: 48.7 cm/sec Lat Peak E' Rolf: 8.6 cm/sec Med Peak E' Rolf: 7.4 cm/sec MV A max rolf: 106.9 cm/sec E/E' lat: 5.7 E/E' med: 6.6 MV E/A: 0.46 MV V2 max: 145.6 cm/sec Ao V2 max: 175.4 cm/sec MV max P.5 mmHg MV dec slope: 570.0 cm/sec2 Ao max P.3 mmHg MV V2 mean: 87.4 cm/sec Ao V2 mean: 129.5 cm/sec MV mean P.6 mmHg Ao mean P.6 mmHg MV V2 VTI: 20.9 cm Ao V2 VTI: 30.0 cm AV (velocity ratio): 0.99 MVA(VTI): 4.3 cm2 LARISSA(I,D): 3.0 cm2 LARISSA(V,D): 2.7 cm2 LV V1 max: 152.5 cm/sec SV(LVOT): 91.0 ml PA V2 max: 184.0 cm/sec LV V1 max P.3 mmHg PA V2 mean: 126.3 cm/sec LV V1 mean P.0 mmHg LV V1 mean: 128.0 cm/sec LV V1 VTI: 29.7 cm TR max rolf: 265.3 cm/sec TR max P.2 mmHg ECHO/Echo Complete Interpretation Summary The study was technically difficult. Moderate concentric left ventricular hypertrophy. The LV ejection fraction is 55 %. Stage 1 diastolic dysfunction. Mildly elevated aortic valve mean peak gradient 88 mmHg however valve leaflets open normally. Mildly dilated aortic root. Ordering Physician: Gurpreet Aggarwal Referring Physician: Gurpreet Aggarwal Performed By: Deborah Che RCS 11/17/241054 Date _ Gurpreet Aggarwal MD CC: DEPUTY CONTROLLER-C Suze Barboza; Dr. Gurpreet Aggarwal MD ~ Date Dictated: 11/17/24922 Date Transcribed: 11/17/241054 Inorganic Chemist: Signed [facility] Work Phone: Stress Reporton 11-17-2024 Stress Report [facility] Cardiovascular Services [address] [place] [address] MR#: [id number] Acct: [id number] Name: YANICK VAUGHN Rep #: [id number] : 1940 83 From: Gurpreet Aggarwal MD Primary Care: JEANCARLOS Vaughn Status: R EG CLI Referring Dr: Gurpreet Aggarwal MD Sex: M C Stress Test Report Date: 11/17/2024 Procedure: Pharmacologic stress nuclear imaging study Indications: Arrhythmia Consent: Per the patient Procedure: The patient underwent pharmacologic (Regadenoson 0.4mg ) evaluation with a peak heart rate of 96 beats per minute (69%predicted maximal heart rate) and a peak blood pressure of 150/82 mmHg. The baseline ECG demonstrated sinus rhythm with first-degree AV block and left bundle branch block. The peak pharmacologic ECG was nondiagnostic secondary to baseline abnormalities. PVCs noted during pharmacologic infusion and in recovery. There was no complaint of chest discomfort during pharmacologic infusion or recovery. The patient was injected with 14.4 millicuries of technetium 99m Cardiolite and subsequently rest SPECT Cardiolite nuclear imaging was obtained in the horizontal long, vertical long, and short axis views. The patient underwent pharmacologic (Regadenoson) evaluation. The patient was injected with 44.9 millicuries of technetium 99m Cardiolite and subsequently stress SPECT Cardiolite nuclear imaging was obtained in the horizontal long, vertical long, and short axis views. A gated Cardiolite study at peak stress was obtained. The examination was stopped secondary to completion of protocol. Rest and stress SPECT Cardiolite nuclear imaging status post realignment, normalization, and attenuation correction demonstrate no fixed or reversible perfusion defects. There is end systolic thickening and brightening. The gated Cardiolite study demonstrates myocardial thickening and inward wall motion. The reported LVEF is 63%. Impression: 1. Pharmacologic (Regadenoson) evaluation 2. Peak pharmacologic ECG with no diagnostic changes. Baseline ECG with left bundle branch block and first-degree AV block. 3. PVCs noted during pharmacologic infusion and in recovery. 5. Rest and stress SPECT Cardiolite nuclear imaging demonstrate relative uniform tracer uptake and myocardial perfusion appearing within normal limits. 6. The gated Cardiolite study reports an LVEF of 63%. This note was generated with HALKARation software. It may contain incorrect words, spelling, and punctuation that were not noted in checking the note before signing. 11/17/24 1021 Date Gurpreet Aggarwal MD CC: JEANCARLOS Barboza; Dr. Gurpreet Aggarwal MD Date Dictated: 11/17/24 1019 Date Transcribed: 11/17/24 1019 Inorganic Chemist: DANE Signed Normal [facility] Anion gap in Serum or Plasma Ordered By: Gurpreet Aggarwal on 10-07-2024 Anion gap [Moles/Vol] 13 mmol/L 5-15 [facility] BUN/creatinine ratioOrdered By: Gurpreet Aggarwal on 10-07-2024 Urea nitrogen/Creatinine [Mass ratio] 17.4 mg/mg 10-20 [facility] Bilirubin, totalOrdered By: Gurpreet Aggarwal on 10-07-2024 Bilirubin [Mass/Vol] 0.39 mg/dL 0.00-1.30 [facility] Carbon dioxide, total [Moles /volume] in Central venous bloodOrdered By: Gurpreet Aggarwal on 10-07-2024 CO2 [Moles/Vol] 21.6 mmol/L 21.0-32.0 [facility] Cardiology Visit Reporton Cardiology Visit Report [facility] [facility] [address] [place] [address] OFFICE VISIT Date of Service: 10/07/24 MR#: [id number] Acct: [id number] Name: YANICK VAUGHN Rep #: [id number] : 1940 Provider: Dr. Gurpreet Aggarwal MD Age/Sex: 83/M Location: [facility] Status: Signed HPI HPI History of [...] NIBP Intake Visit Reasons: ABN EKG (UNA) Director Content Marketing Required: No Accompanied by: Self Is patient [...] mg PO DAILY 06/02/17 10/07/24 H istory qewgjakw-pmjv-aci-folic acid 18 1 ea PO DAILY 06/02/17 [...] pain (spinal (more content not included)... Normal [facility] Chloride assayOrdered By: Dane Aggarwal on 10-07-2024 Chloride [Moles/Vol] 104 mmol/L 98-108 [facility] Comprehensive Metabolic Prof ilon 10-07-2024 Albumin [Mass/Vol] 3.9 g/dL Normal 3.4-4.8 [facility] Comment on above: Performed By: #### L 500.4050 #### [facility] [address] [place] [address] Albumin/Globulin [Mass ratio] 1.5 {ratio} Normal 0.9-2.4 [facility] Comment on above: Performed By: #### L 500.4050 #### [facility] [address] [facility] [address] ALK PHOS 52 U/L Normal 40-129 [facility] Comment on above: Performed By: #### L 500.4050 #### [facility] [address] [place], [address] ALT [Catalytic activity/Vol] 19 U/L Normal <=46 [facility] Comment on above: Performed By: #### L 500.4050 #### [facility] [address] [place], [address] AST [Catalytic activity/Vol] 22 U/L Normal <=37 [facility] Comment on above: Performed By: #### L 500.4050 #### [facility] [address] [place], [address] Bilirubin [Mass/Vol] 0.39 mg/dL Normal 0.00-1.30 [facility] Comment on above: Performed By: #### L 500.4050 #### [facility] [address] [place], [address] BUN/CRE 17.4 RATIO Normal 10-20 [facility] Comment on above: Performed By: #### L 500.4050 #### [facility] [address] [place], [address] Calcium [Mass/Vol] 9.5 mg/dL Normal 7.6-11.0 [facility] Comment on above: Performed By: #### L 500.4050 #### [facility] [address] [place], [address] Chloride [Moles/Vol] 104 mmol/L Normal 98-108 [facility] Comment on above: Performed By: #### L 500.4050 #### [facility] [address] [place], [address] CO2 [Moles/Vol] 21.6 mmol/L Normal 21.0-32.0 [facility] Comment on above: Performed By: #### L 500.4050 #### [facility] [address] [place], [address] Creatinine [Mass/Vol] 2.15 mg/dL High 0.70-1.20 [facility] Comment on above: Performed By: #### L 500.4050 #### [facility] [address] [place], [address] GAP 13 Normal 5-15 [facility] Comment on above: Performed By: #### L 500.4050 #### [facility] [address] [place], [address] GFR/1.73 sq M.predicted among non-blacks MDRD (S/P/Bld) [Vol rate/Area] 30 mL/min/{1.73_m2} Low >60 [facility] Comment on above: Result Comment: mL/m in/1.73m2 CKD-EPI Creatinine Equation (2020) Performed By: #### L 500.4050 #### [facility] [address] [place], [address] Globulin (S) [Mass/Vol] 2.6 g/dL Normal 2.2-4.2 [facility] Comment on above: Performed By: #### L 500.4050 #### [facility] [address] [place], [address] Glucose [Mass/Vol] 206 mg/dL High 70-99 [facility] Comment on above: Performed By: #### L 500.4050 #### [facility] [address] [place], [address] Potassium [Moles/Vol] 4.5 mmol/L Normal 3.3-5.1 [facility] Comment on above: Performed By: #### L 500.4050 #### [facility] [address] [place], [address] Sodium [Moles/Vol] 138 mmol/L Normal 133-145 [facility] Comment on above: Performed By: #### L 500.4050 #### [facility] [address] [place], [address] T PROT 6.5 g/dL Normal 5.9-8.4 [facility] Comment on above: Performed By: #### L 500.4050 #### [facility] [address] [place], [address] Urea nitrogen [Mass/Vol] 37 mg/dL High 4-19 [facility] Comment on above: Performed By: #### L 500.4050 #### [facility] [address] [place], [address] Glomerular filtration rate ( GFR) estimation/1.73 sq m using serum, plasma, or whole bOrdered By: Gurpreet Aggarwal on 10-07-2024 GFR/1.73 sq M.predicted among non-blacks MDRD (S/P/Bld) [Vol rate/Area] 30 mL/min/{1.73_m2} Low >60 [facility] Comment on above: mL/min/1.73m2 CKD-EP I Creatinine Equation (2020) Laboratory - Chemistry and C hemistry - challengeOrdered By: Gurpreet Aggarwal on 10-07-2024 AST [Catalytic activity/Vol] 22 U/L <38 [facility] Potassium measurement (mass/ volume)Ordered By: Gurpreet Aggarwal on 10-07-2024 Potassium (Unsp spec) [Mass/Vol] 4.5 mmol/L 3.3-5.1 [facility] Serum creatinine measurement (mass/volume)Ordered By: Gurpreet Aggarwal on 10-07-2024 Creatinine [Mass/Vol] 2.15 mg/dL High 0.70-1.20 [facility] Serum globulin measurementOr dered By: Gurpreet Aggarwal on 10-07-2024 Globulin (S) [Mass/Vol] 2.6 g/dL 2.2-4.2 [facility] Serum glucose measurement (m ass/volume)Ordered By: Gurpreet Aggarwal on 10-07-2024 Glucose [Mass/Vol] 206 mg/dL High 70-99 [facility] Serum or plasma alanine weinberg otransferase (ALT) measurementOrdered By: Gurpreet Aggarwal on 10-07-2024 ALT [Catalytic activity/Vol] 19 U/L <47 [facility] Serum or plasma albumin adelso urement (mass/volume)Ordered By: Gurpreet Aggarwal on 10-07-2024 Albumin [Mass/Vol] 3.9 g/dL 3.4-4.8 [facility] Serum or plasma albumin/glob ulin mass ratioOrdered By: Gurpreet Aggarwal on 10-07-2024 Albumin/Globulin [Mass ratio] 1.5 {ratio} 0.9-2.4 [facility] Serum or plasma alkaline adalgisa sphatase measurementOrdered By: [facility] on 10-07-2024 ALP [Catalytic activity/Vol] 52 U/L 40-129 [facility] Serum or plasma calcium adelso urement (mass/volume)Ordered By: [facility] on 10-07-2024 Calcium [Mass/Vol] 9.5 mg/dL 7.6-11.0 [facility] Serum or plasma urea nitroge n measurement (mass/volume)Ordered By: [facility] on 10-07-2024 Urea nitrogen [Mass/Vol] 37 mg/dL High 4-19 [facility] Sodium levelOrdered By: [facility] on 10-07-2024 Sodium [Moles/Vol] 138 mmol/L 133-145 [facility] Total proteinOrdered By: [facility] on 10-07-2024 Protein [Mass/Vol] 6.5 g/dL 5.9-8.4 [facility] CBC W/Diff, Automatedon 10- Absolute Lymph 1.26 X10 3/uL Normal 0.83-4.51 [facility] Comment on above: Performed By: #### L 500.4050, L503.0105, L503.6030, L503.6550, L506.0250, L100.0100 #### [facility] [address] [facility] [place], [address] Absolute Neut 4.1 X10 3/uL Normal 2.0-7.7 [facility] Comment on above: Performed By: #### L 500.4050, L503.0105, L503.6030, L503.6550, L506.0250, L100.0100 #### [facility] [address] [place], [address] Basophils/100 WBC (Bld) 0.5 % Normal 0-1 [facility] Comment on above: Performed By: #### L 500.4050, L503.0105, L503.6030, L503.6550, L506.0250, L100.0100 #### [facility] [address] [place], [address] Eosinophils/100 WBC (Bld) 2.3 % Normal 0-5 [facility] Comment on above: Performed By: #### L 500.4050, L503.0105, L503.6030, L503.6550, L506.0250, L100.0100 #### [facility] [address] [place] [place], [address] Erythrocyte distribution width (RBC) [Ratio] 12.9 % Normal 11.6-14.6 [facility] Comment on above: Performed By: #### L 500.4050, L503.0105, L503.6030, L503.6550, L506.0250, L100.0100 #### [facility] [address] [place], [address] Hematocrit (Bld) [Volume fraction] 40.2 % Normal 40-54 [facility] Comment on above: Performed By: #### L 500.4050, L503.0105, L503.6030, L503.6550, L506.0250, L100.0100 #### [facility] [address] [place] [place], [address] Hemoglobin (Bld) [Mass/Vol] 13.5 g/dL Normal 13.0-16.5 [facility] Comment on above: Performed By: #### L 500.4050, L503.0105, L503.6030, L503.6550, L506.0250, L100.0100 #### [facility] [address] [place], [address] IG% 0.300 Normal 0.0-0.9 [facility] Comment on above: Result Comment: IG% - Immature Granulocytes (promyelocytes, myelocytes and metamyelocytes) > 1% indicates that a LEFT SHIFT is Present. Performed By: #### L 500.4050, L503.0105, L503.6030, L503.6550, L506.0250, L100.0100 #### [facility] [address] [place], [address] Lymphocytes/100 WBC (Bld) 21.1 % Normal 19-41 [facility] Comment on above: Performed By: #### L 500.4050, L503.0105, L503.6030, L503.6550, L506.0250, L100.0100 #### [facility] [address] [place], [address] MCH (RBC) [Entitic mass] 31.5 pg Normal 27.0-32.0 [facility] Comment on above: Performed By: #### L 500.4050, L503.0105, L503.6030, L503.6550, L506.0250, L100.0100 #### [facility] [address] [place], [address] MCHC (RBC) [Mass/Vol] 33.6 g/dL Normal 32-36 [facility] Comment on above: Performed By: #### L 500.4050, L503.0105, L503.6030, L503.6550, L506.0250, L100.0100 #### [facility] [address] [place], [address] MCV (RBC) [Entitic vol] 93.7 fL Normal 80-94 [facility] Comment on above: Performed By: #### L 500.4050, L503.0105, L503.6030, L503.6550, L506.0250, L100.0100 #### [facility] [address] [place], [address] Monocytes/100 WBC (Bld) 7.6 % Normal 0-10 [facility] Comment on above: Performed By: #### L 500.4050, L503.0105, L503.6030, L503.6550, L506.0250, L100.0100 #### [facility] [address] [place], [address] Neutrophils/100 WBC (Bld) 68.2 % Normal 47-70 [facility] Comment on above: Performed By: #### L 500.4050, L503.0105, L503.6030, L503.6550, L506.0250, L100.0100 #### [facility] [address] [place], [address] Nucleated RBC (Bld) [#/Vol] 0 10*3/uL Normal 0-5 [facility] Comment on above: Performed By: #### L 500.4050, L503.0105, L503.6030, L503.6550, L506.0250, L100.0100 #### [facility] [address] [place], [address] Platelet mean volume (Bld) [Entitic vol] 10.7 fL Normal 6.2-12.0 [facility] Comment on above: Performed By: #### L 500.4050, L503.0105, L503.6030, L503.6550, L506.0250, L100.0100 #### [facility] [address] [place], [address] Platelets (Bld) [#/Vol] 216 10*3/uL Normal 150-450 [facility] Comment on above: Performed By: #### L 500.4050, L503.0105, L503.6030, L503.6550, L506.0250, L100.0100 #### [facility] [address] [place], [address] RBC (Bld) [#/Vol] 4.29 10*6/uL Low 4.6-6.2 [facility] Comment on above: Performed By: #### L 500.4050, L503.0105, L503.6030, L503.6550, L506.0250, L100.0100 #### [facility] [address] [place], [address] RDW SD 44.1 fl High 35.1-43.9 [facility] Comment on above: Performed By: #### L 500.4050, L503.0105, L503.6030, L503.6550, L506.0250, L100.0100 #### [facility] [address] [place], [address] WBC (Bld) [#/Vol] 6.0 10*3/uL Normal 4.4-11.0 [facility] Comment on above: Performed By: #### L 500.4050, L503.0105, L503.6030, L503.6550, L506.0250, L100.0100 #### [facility] [address] [place], [address] Comprehensive Metabolic Prof [facility] 03-14-2024 Albumin [Mass/Vol] 3.6 g/dL Normal 3.2-5.0 [facility] Comment on above: Order Comment: N Performed By: #### L 500.4050, L503.0105, L503.6030, L503.6550, L506.0250, L100.0100 #### [facility] [address] [place], [address] Albumin/Globulin [Mass ratio] 1.0 {ratio} Normal 0.9-2.4 [facility] Comment on above: Order Comment: N Performed By: #### L 500.4050, L503.0105, L503.6030, L503.6550, L506.0250, L100.0100 #### [facility] [address] [place], [address] ALK P 64 U/L Normal 45-117 [facility] Comment on above: Order Comment: N Performed By: #### L 500.4050, L503.0105, L503.6030, L503.6550, L506.0250, L100.0100 #### [facility] [address] [place], [address] ALT [Catalytic activity/Vol] 27 U/L Normal 16-61 [facility] Comment on above: Order Comment: N Performed By: #### L 500.4050, L503.0105, L503.6030, L503.6550, L506.0250, L100.0100 #### [facility] [address] [place], [address] AST [Catalytic activity/Vol] 16 U/L Normal 15-37 [facility] Comment on above: Order Comment: N Performed By: #### L 500.4050, L503.0105, L503.6030, L503.6550, L506.0250, L100.0100 #### [facility] [address] [place], [address] Bilirubin [Mass/Vol] 0.60 mg/dL Normal 0.20-1.00 [facility] Comment on above: Order Comment: N Result Comment: For patients on eltrombopag therapy, use of Dimension [place] TBIL is not recommended. Performed By: #### L 500.4050, L503.0105, L503.6030, L503.6550, L506.0250, L100.0100 #### [facility] [address] [place], [address] BUN/CRE 15.4 RATIO Normal 10-20 [facility] Comment on above: Order Comment: N Performed By: #### L 500.4050, L503.0105, L503.6030, L503.6550, L506.0250, L100.0100 #### [facility] [address] [place], [address] CA,Total 9.4 mg/dL Normal 8.5-10.1 [facility] Comment on above: Order Comment: N Performed By: #### L 500.4050, L503.0105, L503.6030, L503.6550, L506.0250, L100.0100 #### [facility] [address] [place], [address] Chloride [Moles/Vol] 104 mmol/L Normal 98-107 [facility] Comment on above: Order Comment: N Performed By: #### L 500.4050, L503.0105, L503.6030, L503.6550, L506.0250, L100.0100 #### [facility] [address] [place], [address] CO2 [Moles/Vol] 26.0 mmol/L Normal 21.0-32.0 [facility] Comment on above: Order Comment: N Performed By: #### L 500.4050, L503.0105, L503.6030, L503.6550, L506.0250, L100.0100 #### [facility] [address] [place], [address] Creatinine [Mass/Vol] 2.46 mg/dL High 0.70-1.30 [facility] Comment on above: Order Comment: N Result Comment: The validity of the calculated GFR GFRAA in patients over 70 years has not been determined. Clinical correlation is essential. Performed By: #### L 500.4050, L503.0105, L503.6030, L503.6550, L506.0250, L100.0100 #### [facility] [address] [place], [address] EST GFR - AA 33 mL/min Low >60 [facility] Comment on above: Order Comment: N Result Comment: Afri can [place]an GFR Calc Performed By: #### L 500.4050, L503.0105, L503.6030, L503.6550, L506.0250, L100.0100 #### [facility] [address] [place], [address] GAP 7 Normal 5-15 [facility] Comment on above: Order Comment: N Performed By: #### L 500.4050, L503.0105, L503.6030, L503.6550, L506.0250, L100.0100 #### [facility] [address] [place], [address] GFR/1.73 sq M.predicted among non-blacks MDRD (S/P/Bld) [Vol rate/Area] 27 mL/min/{1.73_m2} Low >60 [facility] Comment on above: Order Comment: N Result Comment: Non- GFR Calc Performed By: #### L 500.4050, L503.0105, L503.6030, L503.6550, L506.0250, L100.0100 #### [facility] [address] [place], [address] Globulin (S) [Mass/Vol] 3.6 g/dL Normal 2.2-4.2 [facility] Comment on above: Order Comment: N Performed By: #### L 500.4050, L503.0105, L503.6030, L503.6550, L506.0250, L100.0100 #### [facility] [address] [place], [address] Glucose [Mass/Vol] 153 mg/dL High 74-106 [facility] Comment on above: Order Comment: N Result Comment: Fast ing Glucose result greater than or equal to 126 mg/dL suggests DIABETES MELLITUS per A.D.A. criteria. Performed By: #### L 500.4050, L503.0105, L503.6030, L503.6550, L506.0250, L100.0100 #### [facility] [address] [place], [address] Potassium [Moles/Vol] 4.0 mmol/L Normal 3.5-5.1 [facility] Comment on above: Order Comment: N Performed By: #### L 500.4050, L503.0105, L503.6030, L503.6550, L506.0250, L100.0100 #### [facility] [address] [place], [address] Sodium [Moles/Vol] 137 mmol/L Normal 136-145 [facility] Comment on above: Order Comment: N Performed By: #### L 500.4050, L503.0105, L503.6030, L503.6550, L506.0250, L100.0100 #### [facility] [address] [place], [address] T PROT 7.2 g/dL Normal 6.4-8.2 [facility] Comment on above: Order Comment: N Performed By: #### L 500.4050, L503.0105, L503.6030, L503.6550, L506.0250, L100.0100 #### [facility] [address] [place], [address] Urea nitrogen [Mass/Vol] 38 mg/dL High 12-12 [facility] Comment on above: Order Comment: N Performed By: #### L 500.4050, L503.0105, L503.6030, L503.6550, L506.0250, L100.0100 #### [facility] [address] [place], [address] Ferritinon 03-14-2024 Ferritin [Mass/Vol] 153 ng/mL Normal 26-388 [facility] Comment on above: Order Comment: N Performed By: #### L 500.4050, L503.0105, L503.6030, L503.6550, L506.0250, L100.0100 #### [facility] [address] [place], [address] Folates, (Folic Acid)on 02-25 FOLATES 27.80 ng/mL Normal 3.1-55.4 [facility] Comment on above: Order Comment: N Performed By: #### L 500.4050, L503.0105, L503.6030, L503.6550, L506.0250, L100.0100 #### [facility] [address] [place], [address] Iron+Iron Binding Capacityon 03-14-2024 Iron [Mass/Vol] 80 ug/dL Normal 65-175 [facility] Comment on above: Order Comment: N Performed By: #### L 500.4050, L503.0105, L503.6030, L503.6550, L506.0250, L100.0100 #### [facility] [address] [place], [address] IRON SATURATION 21.3 Normal 15.0-55.0 [facility] Comment on above: Order Comment: N Performed By: #### L 500.4050, L503.0105, L503.6030, L503.6550, L506.0250, L100.0100 #### [facility] [address] [place], [address] TIBC 375 ug/dL Normal 250-450 [facility] Comment on above: Order Comment: N Performed By: #### L 500.4050, L503.0105, L503.6030, L503.6550, L506.0250, L100.0100 #### [facility] [address] [place], [address] Vitamin B12on 03-14-2024 Cobalamin (Vitamin B12) [Mass/Vol] 475 pg/mL Normal 211-911 [facility] Comment on above: Performed By: #### L 500.4050, L503.0105, L503.6082, L503.6505, L506.0250, L100.0100 #### [facility] [address] [place], [address] Absolute lymphocyte countOrd ered By: Suze Barboza on 09-17-2023 Lymphocytes Auto (Unsp spec) [#/Vol] 0.93 10*3/uL 0.83-4.51 [facility] Automated lymphocyte count a s percentage of total leukocytesOrdered By: Suze Barboza on 09-17-2023 Lymphocytes/100 WBC Auto (Unsp spec) 16.6 % 19-41 [facility] Basophil percentageOrdered B y: Suze Barboza on 09-17-2023 Basophils/100 WBC (Bld) 0.7 % 0-1 [facility] Bilirubin [Mass/Vol] 0.60 mg/dL 0.20-1.00 [facility] Comment on above: For patients on eltr ombopag therapy, use of Dimension [place] TBIL is not recommended. Chloride [Moles/Vol] 107 mmol/L 98-107 [facility] Cholesterol [Mass/Vol] 180 mg/dL <200 [facility] Comment on above: <200 mg/dL Desirable 200-240 mg/dL Borderline >240 mg/dL High Risk Eosinophils/100 WBC (Bld) 2.9 % 0-5 [facility] Glucose [Mass/Vol] 156 mg/dL 74-106 [facility] Comment on above: Fasting Glucose resu lt greater than or equal to 126 mg/dL suggests DIABETES MELLITUS per A.D.A. criteria. Hemoglobin (Bld) [Mass/Vol] 12.9 g/dL 13.0-16.5 [facility] Monocytes/100 WBC (Bld) 7.5 % 0-10 [facility] Neutrophils (Bld) [#/Vol] 4.0 10*3/uL 2.0-7.7 [facility] Neutrophils/100 WBC (Bld) 71.9 % 47-70 [facility] Potassium [Moles/Vol] 4.4 mmol/L 3.5-5.1 [facility] Protein [Mass/Vol] 6.9 g/dL 6.4-8.2 [facility] Sodium [Moles/Vol] 140 mmol/L 136-145 [facility] Triglyceride [Mass/Vol] 265 mg/dL <199 [facility] Comment on above: The drugs N-Acetylcy steine and Metamizole may falsely depress this assay.Serum Triglycerides Reference Interval Normal <150 mg/dL Borderline high 150 - 199 mg/dL High 200 - 499 mg/dL Very High > or = 500 mg/dL WBC (Bld) [#/Vol] 5.6 10*3/uL 4.4-11.0 [facility] Determination of erythrocyte mean corpuscular volume (MCV)Ordered By: Suze Barboza on 09-17-2023 MCV (RBC) [Entitic vol] 93.3 fL 80-94 [facility] Erythrocyte distribution wid th ratioOrdered By: [facility] on 09-17-2023 Erythrocyte distribution width (RBC) [Ratio] 13.1 % 11.6-14.6 [facility] Erythrocyte distribution wid th standard deviationOrdered By: [facility] on 09-17-2023 Erythrocyte distribution width (RBC) [Entitic vol] 44.5 fL 35.1-43.9 [facility] Hematocrit Auto (Bld) [Volum e fraction]Ordered By: Suze Una on 09-17-2023 Hematocrit (Bld) [Volume fraction] 39.3 % 40-54 [facility] Immature granulocytes/100 WB C Auto (Bld)Ordered By: Suzecesar Barboza on 09-17-2023 Immature granulocytes/100 WBC (Bld) 0.400 % 0.0-0.9 [facility] Comment on above: IG% - Immature Granu locytes (promyelocytes, myelocytes and metamyelocytes) > 1% indicates that a LEFT SHIFT is Present. Laboratory - Chemistry and C hemistry - challengeOrdered By: Suze Barboza on 09-17-2023 Albumin/Globulin [Mass ratio] 1.0 {ratio} 0.9-2.4 [facility] ALP [Catalytic activity/Vol] 53 U/L 45-117 [facility] ALT [Catalytic activity/Vol] 26 U/L 16-61 [facility] Cholesterol in HDL [Mass/Vol] 31 mg/dL >40 [facility] Comment on above: The drugs N-Acetylcy steine and Metamizole may falsely depress this assay. Reference Range HDL <40 mg/dL Low HDL Cholesterol HDL >or= 60 mg/dL High HDL Cholesterol Cholesterol in LDL [Mass/Vol] 96 mg/dL 0-130 [facility] CO2 [Moles/Vol] 27.0 mmol/L 21.0-32.0 [facility] Globulin (S) [Mass/Vol] 3.4 g/dL 2.2-4.2 [facility] Magnesium [Mass/Vol] 1.9 mg/dL 1.6-2.6 [facility] Urea nitrogen/Creatinine [Mass ratio] 18.9 mg/mg 10-20 [facility] Laboratory - Hematology and Cell countsOrdered By: Suze Barboza on 09-17-2023 MCH (RBC) [Entitic mass] 30.6 pg 27.0-32.0 [facility] MCHC (RBC) [Mass/Vol] 32.8 g/dL 32-36 [facility] Nucleated RBC/100 WBC (Bld) [Ratio] 0 % 0-5 [facility] Platelet mean volume (Bld) [Entitic vol] 10.6 fL 6.2-12.0 [facility] Platelets (Bld) [#/Vol] 216 10*3/uL 150-450 [facility] No Panel InformationOrdered By: Suze Barboza on 09-17-2023 Estimated GFR (MDRD) Amer 36 mL/min >60 [facility] Comment on above: GFR Calc Estimated GFR (MDRD) Non-Af Amer 30 mL/min >60 [facility] Comment on above: Non- GFR Calc Prostate Specific Antigen Screen 0.32 ng/mL 0.00-4.00 [facility] Comment on above: This test was perfor med using the TPSA assay method for the[facility] Center[facility] by Party chemistry system. Values obtained with differentassay methods cannot be used interchangably.When changing PSA assays in the course of monitoring apatient, additional sequential testing should be carriedout to confirm baseline values. Vitamin D 25-Hydroxy 48.6 ng/mL [facility] Comment on above: Vitamin D 25(OH) Sta tus Range Deficiency <20 ng/mL (50nmol/L) Insufficiency 20 - 30 ng/mL (50 - 75 nmol/L) Sufficiency 30 - 100 ng/mL (75 - 250 nmol/L) Toxicity >100 ng/mL (>250 nmol/L) VLDL Cholesterol 53 mg/dL 5-40 [facility] RBC Auto (Bld) [#/Vol]Ordere d By: Suze Barboza on 09-17-2023 RBC (Bld) [#/Vol] 4.21 10*6/uL 4.6-6.2 [facility] Serum or plasma calcium adelso urement (mass/volume)Ordered By: Suze Barboza on 09-17-2023 Calcium [Mass/Vol] 8.8 mg/dL 8.5-10.1 [facility] Serum or plasma creatinine m easurement (mass/volume)Ordered By: Suze Barboza on 09-17-2023 Creatinine [Mass/Vol] 2.28 mg/dL 0.70-1.30 [facility] Comment on above: The validity of the calculated GFR & GFRAA in patients over 70 years has not been determined. Clinical correlation is essential. Serum or plasma urea nitroge n measurement (mass/volume)Ordered By: Suze Barboza on 09-17-2023 Urea nitrogen [Mass/Vol] 43 mg/dL 7-18 [facility] Thin prep Papanicolaou smear with manual screeningOrdered By: Suze Barboza on 09-17-2023 Thin prep Papanicolaou smear with manual screening 3.5 g/dL 3.2-5.0 [facility] Thin prep Papanicolaou smear with manual screening 18 U/L 15-37 [facility] Thin prep Papanicolaou smear with manual screening 6 5-15 [facility] Basophil percentageOrdered B y: Mandy Billings on 08-22-2022 Bilirubin [Mass/Vol] 0.50 mg/dL 0.20-1.00 [facility] Comment on above: For patients on eltr ombopag therapy, use of Dimension [place] TBIL is not recommended. Chloride [Moles/Vol] 108 mmol/L 98-107 [facility] Cholesterol [Mass/Vol] 162 mg/dL <200 [facility] Comment on above: <200 mg/dL Desirable 200-240 mg/dL Borderline >240 mg/dL High Risk Glucose [Mass/Vol] 141 mg/dL 74-106 [facility] Comment on above: Fasting Glucose resu lt greater than or equal to 126 mg/dL suggests DIABETES MELLITUS per A.D.A. criteria. Potassium [Moles/Vol] 4.0 mmol/L 3.5-5.1 [facility] Protein [Mass/Vol] 7.1 g/dL 6.4-8.2 [facility] Sodium [Moles/Vol] 138 mmol/L 136-145 [facility] Triglyceride [Mass/Vol] 214 mg/dL <199 [facility] Comment on above: The drugs N-Acetylcy steine and Metamizole may falsely depress this assay.Serum Triglycerides Reference Interval Normal <150 mg/dL Borderline high 150 - 199 mg/dL High 200 - 499 mg/dL Very High > or = 500 mg/dL Laboratory - Chemistry and C hemistry - challengeOrdered By: Mandy Billings on 08-22-2022 ALP [Catalytic activity/Vol] 67 U/L 45-117 [facility] ALT [Catalytic activity/Vol] 25 U/L 16-61 [facility] CO2 [Moles/Vol] 24.0 mmol/L 21.0-32.0 [facility] Cobalamin (Vitamin B12) [Mass/Vol] 428 pg/mL 211-911 [facility] Globulin (S) [Mass/Vol] 3.7 g/dL 2.2-4.2 [facility] Urea nitrogen/Creatinine [Mass ratio] 19.0 mg/mg 10-20 [facility] No Panel InformationOrdered By: Mandy Billings on 08-22-2022 Estimated GFR (MDRD) Amer 42 mL/min >60 [facility] Comment on above: GFR Calc Estimated GFR (MDRD) Non-Af Amer 34 mL/min >60 [facility] Comment on above: Non- GFR Calc Prostate Specific Antigen Screen 0.26 ng/mL 0.00-4.00 [facility] Comment on above: This test was perfor med using the TPSA assay method for the[employer] chemistry system. Values obtained with differentassay methods cannot be used interchangably.When changing PSA assays in the course of monitoring apatient, additional sequential testing should be carriedout to confirm baseline values. Serum or plasma albumin adelso urement (mass/volume)Ordered By: Mandy Billings on 08-22-2022 Albumin [Mass/Vol] 3.4 g/dL 3.2-5.0 [facility] Serum or plasma albumin/glob ulin mass ratioOrdered By: Mandy Billings on 08-22-2022 Albumin/Globulin [Mass ratio] 0.9 {ratio} 0.9-2.4 [facility] Serum or plasma calcitriol m easurement (mass/volume)Ordered By: Mandy Billings on 08-22-2022 1,25-dihydroxyvitamin D3 [Mass/Vol] 23.3 pg/mL 24.8-81.5 [facility] Comment on above: Performed at: [facility] [address] [id number] Director: Demetrio Griffin MD, Phone: [phone] Serum or plasma calcium adelso urement (mass/volume)Ordered By: Mandy Billings on 08-22-2022 Calcium [Mass/Vol] 8.9 mg/dL 8.5-10.1 [facility] Serum or plasma cholesterol in HDL measurement (mass/volume)Ordered By: Mandy Billings on 08-22-2022 Cholesterol in HDL [Mass/Vol] 34 mg/dL >40 [facility] Comment on above: The drugs N-Acetylcy steine and Metamizole may falsely depress this assay. Reference Range HDL <40 mg/dL Low HDL Cholesterol HDL >or= 60 mg/dL High HDL Cholesterol Serum or plasma cholesterol in VLDL measurement (mass/volume)Ordered By: Mandy Billings on 08-22-2022 Cholesterol in VLDL [Mass/Vol] 43 mg/dL 5-40 [facility] Serum or plasma creatinine m easurement (mass/volume)Ordered By: Mandy Billings on 08-22-2022 Creatinine [Mass/Vol] 2.00 mg/dL 0.70-1.30 [facility] Comment on above: The validity of the calculated GFR & GFRAA in patients over 70 years has not been determined. Clinical correlation is essential. Serum or plasma low density lipoprotein (LDL) cholesterol measurement (mass/volume)Ordered By: Mandy Billings on 08-22-2022 Cholesterol in LDL [Mass/Vol] 85 mg/dL 0-130 [facility] Serum or plasma urea nitroge n measurement (mass/volume)Ordered By: Mandy Billings on 08-22-2022 Urea nitrogen [Mass/Vol] 38 mg/dL 7-18 [facility] Thin prep Papanicolaou smear with manual screeningOrdered By: Mandy Billings on 08-22-2022 Thin prep Papanicolaou smear with manual screening 20 U/L 15-37 [facility] Thin prep Papanicolaou smear with manual screening 6 5-15 [facility] Thin prep Papanicolaou smear with manual screening 430.0 mg/L NO RANGE EST. [facility] Whole blood hemoglobin A1c/t otal hemoglobin ratio (mass fraction)Ordered By: Mandy Billings on 08-22-2022 HbA1c (Bld) [Mass fraction] 6.3 % 3.8-5.6 [facility] Comment on above: Normal < 5.7 % Predi abetic 5.7 - 6.4 % Diabetic >or= 6.5 % Please note range changes. [facility] Physician Progress Noteon 05-04-2021 [facility] Physician Progress Note Chief Complaint F/u Renal artery duplex 04/29/2021, S/P AAA open repair08/30/17. No complaints History of Present Illness had Covid 3 mos ago. had vaccine 9 mos ago. Had blood work at [place] showing improving renal function. no new complaints [...] 91 mmHg (05/04/21:32:00) Height/Length Measured: 175 cm (05/04/21:32:00) Weight Measured: 98 kg (05/04/21:32:00) Body Mass Index Measured: 32 kg/m2 (05/04/21:32:00) Weight Measured - lbs2: 217 lb (05/04/21:32:00) Height/Length Measured - in2: 69 in (05/04/21:32:00) Body Mass Index Measured English2: 32.04 kg/m2 (05/04/21:32:00) BSA: 2.19 m2 (05/04/21:32:00) Ht/Wt Measurement Refused by Patient?2: No (05/04/21:32:00) Depression Screening Scores Initial Depression Screen Score: [...] Est Pt Low MDM / 20-29 min 67617, 05/04/2021 10:03:00 EST, Aneurysm of left renal [...] Est Pt Low MDM / 20-29 min 20571, 05/04/2021 10:03:00 EST, Aneurysm of left renal [...] Lt renal aneurysm: 08/30/17 cataract excision -both: 2005 Cholecystectomy, Laproscopic: 2004 Rt testicle removed: 1982 appendectomy: 1952 RIGHT testicle removed 1982 Appendectomy 1952 Cataract extraction Cholecystectomy 2004 Medications amLODIPine 2.5 mg oral tablet, 2.5 mg= 1 tabs, ORAL, DAILY WITH SUPPER Aspirin Low Dose 81 mg oral delayed release tablet, 81 mg= 1 tabs, ORAL, DAILY cyclobenzaprine 10 mg o (more content not included)... Normal [facility] Ambulatory Clinical Summaryo n 05-04-2021 Ambulatory Clinical Summary YANICK VAUGHN :1940 Visit Date:05/04/2021 Ambulatory Visit Instructions Your Diagnosis Aneurysm of left renal artery History of AAA (abdominal aortic aneurysm) repair Your Care Team Attending Physician - HATTIE HUNG, AMANDA Primary Care Physician - CHRIS NIX [phone] Procedures Performed aortic aneurysm repair, open with [...] When Instructions Unchanged acetaminophen-oxycodone (Percocet 5/ 325 ([id number]) oral tablet) 1 Tabs Oral EVERY FOUR [...] of these heart attack warning signs, call 01-26- to get immediate medical attention! Normal [facility] ED NOTEon 02-22-2021 ED NOTE HNO ID: [id number] Author: Mandy Diaz RN Service: Emergency Medicine Author Type: Registered Nurse Type: ED Notes Filed: 02/21/2021 10:12 PM Note Text: Ambulated patient around room. spo2 maintained 95 percent and HR 97. Patient denies any sob or cp Normal [facility] Bacteria Ur Culton Bacteria identified Cx Nom (U) CULTURE, URINE: No growth (<1,000 CFU/ml) Normal [facility] Comment on above: Performed By: #### 3 2693-4 #### [facility] [place] [facility] CLIA [id number] [address] [place] [address] [place] CBC W Auto Differential pane l (Bld)on 02-21-2021 Basophils (Bld) [#/Vol] 10*3/uL Normal <0.11 [facility] Comment on above: Order Comment: Speci men Type: BLOOD SPECIMEN Performed By: #### 5 7021-8 #### [facility] [place] [facility] CLIA [id number] [address] [place] [address] [place] Basophils/100 WBC (Bld) 0.2 % Normal [facility] Comment on above: Order Comment: Speci men Type: BLOOD SPECIMEN Performed By: #### 5 7021-8 #### [facility] [place] [facility] CLIA [id number] [address] [place] [address] [place] Differential cell count method Nom (Bld) Auto Normal [facility] Comment on above: Order Comment: Speci men Type: BLOOD SPECIMEN Performed By: #### 5 7021-8 #### [facility] [place] [facility] CLIA [id number] [address] [place] [address] [place] Eosinophils (Bld) [#/Vol] 10*3/uL Normal <0.46 [facility] Comment on above: Order Comment: Speci men Type: BLOOD SPECIMEN Performed By: #### 5 7021-8 #### [facility] [place] [facility] CLIA [id number] [address] [place] [address] [facility] Eosinophils/100 WBC (Bld) 0.2 % Normal [facility] Comment on above: Order Comment: Speci men Type: BLOOD SPECIMEN Performed By: #### 5 7021-8 #### [facility] [place] [facility] CLIA [id number] [address] [place] [address] [facility] Erythrocyte distribution width (RBC) [Ratio] 12.7 % Normal 11.5-15.0 [facility] Comment on above: Order Comment: Speci men Type: BLOOD SPECIMEN Performed By: #### 5 7021-8 #### [facility] [place] [facility] CLIA [id number] [address] [place] [address] [facility] [place] Hematocrit (Bld) [Volume fraction] 38.7 % Low 39.0-51.0 [facility] Comment on above: Order Comment: Speci men Type: BLOOD SPECIMEN Performed By: #### 5 7021-8 #### [facility] [place] [facility] CLIA [id number] [address] [place] [address] [facility] [place] Hemoglobin (Bld) [Mass/Vol] 13.0 g/dL Normal 13.0-17.0 [facility] Comment on above: Order Comment: Speci men Type: BLOOD SPECIMEN Performed By: #### 5 7021-8 #### [facility] [place] [facility] CLIA [id number] [address] [place] [address] [place] Lymphocytes (Bld) [#/Vol] 0.43 10*3/uL Low 1.00-4.00 [facility] Comment on above: Order Comment: Speci men Type: BLOOD SPECIMEN Performed By: #### 5 7021-8 #### [facility] [place] [facility] CLIA [id number] [address] [place] [address] [facility] Lymphocytes/100 WBC (Bld) 10.3 % Normal [facility] Comment on above: Order Comment: Speci men Type: BLOOD SPECIMEN Performed By: #### 5 7021-8 #### [facility] [place] [facility] CLIA [id number] [address] [place] [address] [facility] MCH (RBC) [Entitic mass] 30.3 pg Normal 26.0-34.0 [facility] Comment on above: Order Comment: Speci men Type: BLOOD SPECIMEN Performed By: #### 5 7021-8 #### [facility] [place] [facility] CLIA [id number] [address] [place] [address] [place] MCHC (RBC) [Mass/Vol] 33.6 g/dL Normal 30.5-36.0 [facility] Comment on above: Order Comment: Speci men Type: BLOOD SPECIMEN Performed By: #### 5 7021-8 #### [facility] [place] [facility] CLIA [id number] [address] [place] [address] [place] MCV (RBC) [Entitic vol] 90.2 fL Normal 80.0-100.0 [facility] Comment on above: Order Comment: Speci men Type: BLOOD SPECIMEN Performed By: #### 5 7021-8 #### [facility] [place] [facility] CLIA [id number] [address] [place] [address] [facility] Monocytes (Bld) [#/Vol] 0.29 10*3/uL Normal <0.87 [facility] Comment on above: Order Comment: Speci men Type: BLOOD SPECIMEN Performed By: #### 5 7021-8 #### [facility] [place] [facility] CLIA [id number] [address] [place] [address] [place] Monocytes/100 WBC (Bld) 7.0 % Normal [facility] Comment on above: Order Comment: Speci men Type: BLOOD SPECIMEN Performed By: #### 5 7021-8 #### [facility] [place] [facility] CLIA [id number] [address] [place] [address] [facility] [place] Neutrophils (Bld) [#/Vol] 3.42 10*3/uL Normal 1.45-7.50 [facility] Comment on above: Order Comment: Speci men Type: BLOOD SPECIMEN Performed By: #### 5 7021-8 #### [facility] [place] [facility] CLIA [id number] [address] [place] [address] [place] Neutrophils/100 WBC (Bld) 82.3 % Normal [facility] Comment on above: Order Comment: Speci men Type: BLOOD SPECIMEN Performed By: #### 5 7021-8 #### [facility] [place] [facility] CLIA [id number] [address] [place] [address] [place] Platelet mean volume (Bld) [Entitic vol] 9.9 fL Normal 9.0-12.7 [facility] Comment on above: Order Comment: Speci men Type: BLOOD SPECIMEN Performed By: #### 5 7021-8 #### [facility] [place] [facility] CLIA [id number] [address] [place] [address] [place] Platelets (Bld) [#/Vol] 150 10*3/uL Normal 150-400 [facility] Comment on above: Order Comment: Speci men Type: BLOOD SPECIMEN Performed By: #### 5 7021-8 #### [facility] [place] [facility] CLIA [id number] [address] [place] [address] [place] RBC (Bld) [#/Vol] 4.29 10*6/uL Normal 4.20-6.00 [facility] Comment on above: Order Comment: Speci men Type: BLOOD SPECIMEN Performed By: #### 5 7021-8 #### [facility] [place] [facility] CLIA [id number] [address] [place] [address] [place] WBC (Bld) [#/Vol] 4.16 10*3/uL Normal 3.70-11.00 [facility] Comment on above: Order Comment: Speci men Type: BLOOD SPECIMEN Performed By: #### 5 7021-8 #### [facility] [place] [facility] CLIA [id number] [address] [place] [address] [facility] Comprehensive metabolic 2000 panelon 02-21-2021 Albumin [Mass/Vol] 3.9 g/dL Normal 3.9-4.9 [facility] Comment on above: Order Comment: Speci men Type: BLOOD SPECIMEN Performed By: #### 2 4323-8 #### [facility] [place] [facility] CLIA [id number] [address] [facility] [place] [address] [place] ALP [Catalytic activity/Vol] 52 U/L Normal 38-113 [facility] Comment on above: Order Comment: Speci men Type: BLOOD SPECIMEN Performed By: #### 2 4323-8 #### [facility] [place] [facility] CLIA [id number] [address] [place] [address] [place] ALT With P-5'-P [Catalytic activity/Vol] 24 U/L Normal 10-54 [facility] Comment on above: Order Comment: Speci men Type: BLOOD SPECIMEN Performed By: #### 2 4323-8 #### [facility] [place] [facility] CLIA [id number] [address] [place] [address] [place] Anion gap [Moles/Vol] 15 mmol/L Normal 9-18 [facility] Comment on above: Order Comment: Speci men Type: BLOOD SPECIMEN Performed By: #### 2 4323-8 #### [facility] [place] [facility] CLIA [id number] [address] [place] [address] [place] AST With P-5'-P [Catalytic activity/Vol] 36 U/L Normal 14-40 [facility] Comment on above: Order Comment: Speci men Type: BLOOD SPECIMEN Performed By: #### 2 4323-8 #### [facility] [place] [facility] CLIA [id number] [address] [place] [address] [place] Bilirubin [Mass/Vol] 0.5 mg/dL Normal 0.2-1.3 [facility] Comment on above: Order Comment: Speci men Type: BLOOD SPECIMEN Performed By: #### 2 4323-8 #### [facility] [place] [facility] CLIA [id number] [address] [facility] [place] [address] [place] Calcium [Mass/Vol] 8.9 mg/dL Normal 8.5-10.2 [facility] Comment on above: Order Comment: Speci men Type: BLOOD SPECIMEN Performed By: #### 2 4323-8 #### [facility] [place] [facility] CLIA [id number] [address] [facility] [place] [address] [place] Chloride [Moles/Vol] 100 mmol/L Normal 97-105 [facility] Comment on above: Order Comment: Speci men Type: BLOOD SPECIMEN Performed By: #### 2 4323-8 #### [facility] [place] [facility] CLIA [id number] [address] [place] [address] [place] CO2 [Moles/Vol] 21 mmol/L Low 22-30 [facility] Comment on above: Order Comment: Speci men Type: BLOOD SPECIMEN Performed By: #### 2 4323-8 #### [facility] [place] [facility] CLIA [id number] [address] [place] [address] [place] Creatinine [Mass/Vol] 2.04 mg/dL High 0.73-1.22 [facility] Comment on above: Order Comment: Speci men Type: BLOOD SPECIMEN Performed By: #### 2 4323-8 #### [facility] [place] [facility] CLIA [id number] [address] [place] [address] [place] GFR/1.73 sq M.predicted among blacks MDRD (S/P/Bld) [Vol rate/Area] 38 mL/min/{1.73_m2} Normal [facility] Comment on above: Order Comment: Speci men Type: BLOOD SPECIMEN Performed By: #### 2 4323-8 #### [facility] [place] [facility] CLIA [id number] [address] [place] [address] [place] GFR/1.73 sq M.predicted among non-blacks MDRD (S/P/Bld) [Vol rate/Area] 32 mL/min/{1.73_m2} Normal [facility] Comment on above: Order Comment: Speci [...] GFR. Performed By: #### 2 4323-8 #### [facility] CLIA [id number] [address] [place] [address] [place] Glucose [Mass/Vol] 147 mg/dL High 74-99 [facility] Comment on above: Order Comment: Speci [facility] Type: BLOOD SPECIMEN Result Comment: The [place] [employer] (ADA) provides guidance for cutoff [...] Standards of Medical Care in Diabetes 2016, [place] [employer]. Diabetes Care. 2016.39(Suppl 1). Performed By: #### 2 4323-8 #### [facility] [place] [facility] CLIA [id number] [address] [place] [address] [place] Potassium [Moles/Vol] 4.0 mmol/L Normal 3.7-5.1 [facility] Comment on above: Order Comment: [facility] Type: BLOOD SPECIMEN Performed By: #### 2 4323-8 #### [facility] CLIA [id number] [address] [place] [address] [place] Protein [Mass/Vol] 7.1 g/dL Normal 6.3-8.0 [facility] Comment on above: Order Comment: Speci men Type: BLOOD SPECIMEN Performed By: #### 2 4323-8 #### [facility] [place] [facility] CLIA [id number] [address] [place] [address] [facility] Sodium [Moles/Vol] 136 mmol/L Normal 136-144 [facility] Comment on above: Order Comment: Speci men Type: BLOOD SPECIMEN Performed By: #### 2 4323-8 #### [facility] [place] [facility] CLIA [id number] [address] [place] [address] [place] [facility] Urea nitrogen [Mass/Vol] 29 mg/dL High 9-24 [facility] Comment on above: Order Comment: Speci men Type: BLOOD SPECIMEN Performed By: #### 2 4323-8 #### [facility] [place] [facility] CLIA [id number] [address] [place] [address] [facility] [place] ED PROV NOTEon 02-21-2021 ED PROV NOTE HNO ID: [id number] Author: Shira Domingo DO Service: Emergency Medicine [...] 22 133 COVID-19 COVID-19 test performed per [facility] [employer] policy for suspected COVID community exposure. MDM / Disposition / Plan Labs, imaging, EKG ordered. Rapid Covid ordered. XR CHEST 1V FRONTAL Final Result IMPRESSION: No signif (more content not included)... Normal [facility] HIGH SENSITIVITY TROPONIN To n 02-21-2021 HIGH SENSITIVITY MOUSTAPHA 29 ng/L High <12 [facility] Comment on above: Order Comment: Speci [...] 30 day MACE. Performed By: #### [facility] #### [facility] [place] [facility] CLIA [id number] [address] [place] [address] [facility] [place] HIGH SENSITIVITY MOUSTAPHA 31 ng/L High <12 [facility] Comment on above: Order Comment: Speci [...] MACE. Performed By: #### H STNT #### [facility] CLIA [id number] [address] [place] [address] [facility] Lactate (Bld) [Moles/Vol]on 02-21-2021 Lactate [Moles/Vol] 1.3 mmol/L Normal 0.5-2.2 [facility] Comment on above: Order Comment: Speci men Type: BLOOD SPECIMEN Performed By: #### 3 2693-4 #### [facility] CLIA [id number] [address] [place] [address] [facility] [place] SARS-CoV-2 RNA Resp Ql KYAW+p robeon 02-21-2021 SARS-CoV-2 (COVID-19) RNA KYAW+probe Ql (Resp) COVID 19 RESULT: SARS-CoV-2 (Agent of COVID-19) Detected by PCR. This test has been authorized by FDA under an Emergency Use Authorization (EUA) Normal [facility] Comment on above: Performed By: #### 3 2693-4 #### [facility] CLIA [id number] [address] [place] [address] [place] Urinalysis complete panel (U )on 02-21-2021 Bilirubin Ql (U) Negative Normal Negative [facility] Comment on above: Order Comment: Speci men Type: URINE SPECIMEN Performed By: #### 2 4356-8 #### [facility] CLIA [id number] [address] [place] [address] [facility] [place] Clarity (Unsp spec) Clear Normal Clear [facility] Comment on above: Order Comment: Speci men Type: URINE SPECIMEN Performed By: #### 2 4356-8 #### [facility] [place] [facility] CLIA [id number] [address] [place] [address] [place] Color (U) Yellow Normal Yellow [facility] Comment on above: Order Comment: Speci men Type: URINE SPECIMEN Performed By: #### 2 4356-8 #### [facility] [place] [facility] CLIA [id number] [address] [place] [address] [facility] Glucose Test strip (U) [Mass/Vol] Negative Normal Negative [facility] Comment on above: Order Comment: Speci men Type: URINE SPECIMEN Performed By: #### 2 4356-8 #### [facility] [place] [facility] CLIA [id number] [address] [place] [address] [place] Hemoglobin Ql (U) Negative Normal Negative [facility] Comment on above: Order Comment: Speci men Type: URINE SPECIMEN Performed By: #### 2 4356-8 #### [facility] [place] [facility] CLIA [id number] [address] [place] [address] [place] Ketones Ql (U) Negative Normal Negative [facility] Comment on above: Order Comment: Speci men Type: URINE SPECIMEN Performed By: #### 2 4356-8 #### [facility] [place] [facility] CLIA [id number] [address] [place] [address] [place] Leukocyte esterase Test strip Ql (U) Negative Normal Negative [facility] Comment on above: Order Comment: Speci men Type: URINE SPECIMEN Performed By: #### 2 4356-8 #### [facility] [place] [facility] CLIA [id number] [address] [place] [address] [place] Nitrite Ql (U) Negative Normal Negative [facility] Comment on above: Order Comment: Speci men Type: URINE SPECIMEN Performed By: #### 2 4356-8 #### [facility] [place] [facility] CLIA [id number] [address] [place] [address] [place] pH (U) 6.5 [pH] Normal 5.0-8.0 [facility] Comment on above: Order Comment: Speci men Type: URINE SPECIMEN Performed By: #### 2 4356-8 #### [facility] [place] [facility] CLIA [id number] [address] [place] [address] [facility] Protein (U) [Mass/Vol] 2+ Abnormal Negative [facility] Comment on above: Order Comment: Speci men Type: URINE SPECIMEN Performed By: #### 2 4356-8 #### [facility] [place] [facility] CLIA [id number] [address] [place] [address] [facility] RBC LM.HPF (Urine sed) [#/Area] 0-3 /HPF Normal 0-3 /HPF [facility] Comment on above: Order Comment: Speci men Type: URINE SPECIMEN Performed By: #### 2 4356-8 #### [facility] [place] [facility] CLIA [id number] [address] [place] [address] [facility] Specific gravity (U) [Rel density] 1.020 Normal 1.005-1.030 [facility] Comment on above: Order Comment: Speci men Type: URINE SPECIMEN Performed By: #### 2 4356-8 #### [facility] [place] [facility] CLIA [id number] [address] [place] [address] [facility] Urobilinogen Ql (U) 0.2 EU/dL Normal 0.2-1.0 EU/dL [facility] Comment on above: Order Comment: Speci men Type: URINE SPECIMEN Performed By: #### 2 4356-8 #### [facility] [place] [facility] CLIA [id number] [address] [place] [address] [facility] WBC LM.HPF (Urine sed) [#/Area] 0-5 /HPF Normal 0-5 /HPF [facility] Comment on above: Order Comment: Speci men Type: URINE SPECIMEN Performed By: #### 2 4356-8 #### [facility] [place] [facility] CLIA [id number] [address] [place] [address] [place] XR CHEST 1V [...] abnormality of the chest or interval change. Inorganic Chemist: PATRICIA Transcribe Date/Time: Feb 21 2021 9:03P Dictated by : ANDREAS CHAPPELL MD This examination was interpreted and the report reviewed and electronically signed by: ANDREAS CHAPPELL MD on Feb 21 2021 9:04PM EST [id number] Normal [facility] Basic metabolic 2000 panelon 08-23-2020 Anion gap [Moles/Vol] 12 mmol/L Normal 9-18 [facility] Comment on above: Order Comment: Speci men Type: BLOOD SPECIMEN Performed By: #### 2 4321-2, 29933-3 #### [facility] CLIA [id number] [address] [place] [address] [place] Calcium [Mass/Vol] 9.1 mg/dL Normal 8.5-10.2 [facility] Comment on above: Order Comment: Speci men Type: BLOOD SPECIMEN Performed By: #### 2 4321-2, 89854-4 #### [facility] CLIA [id number] [address] [place] [address] [place] Chloride [Moles/Vol] 103 mmol/L Normal 97-105 [facility] Comment on above: Order Comment: Speci men Type: BLOOD SPECIMEN Performed By: #### 2 4321-2, 51509-7 #### [facility] [place] [facility] CLIA [id number] [address] [place] [address] [place] [facility] CO2 [Moles/Vol] 23 mmol/L Normal 22-30 [facility] Comment on above: Order Comment: Speci men Type: BLOOD SPECIMEN Performed By: #### 2 4321-2, 65583-1 #### [facility] [place] [facility] CLIA [id number] [address] [place] [address] [place] Creatinine [Mass/Vol] 2.20 mg/dL High 0.73-1.22 [facility] Comment on above: Order Comment: Speci men Type: BLOOD SPECIMEN Performed By: #### 2 4321-2, 90938-8 #### [facility] [place] [facility] CLIA [id number] [address] [place] [address] [facility] GFR/1.73 sq M.predicted among blacks MDRD (S/P/Bld) [Vol rate/Area] 35 mL/min/{1.73_m2} Normal [facility] Comment on above: Order Comment: Speci men Type: BLOOD SPECIMEN Performed By: #### 2 4321-2, 38587-7 #### [facility] [place] [facility] CLIA [id number] [address] [place] [address] [place] GFR/1.73 sq M.predicted among non-blacks MDRD (S/P/Bld) [Vol rate/Area] 29 mL/min/{1.73_m2} Normal [facility] Comment on above: Order Comment: Speci [...] actual GFR. Performed By: #### 2 4321-2, 09698-8 #### [facility] [place] [facility] CLIA [id number] [address] [place] [address] [place] Glucose [Mass/Vol] 149 mg/dL High 74-99 [facility] Comment on above: Order Comment: Speci men Type: BLOOD SPECIMEN Result Comment: The [place] [employer] Association (ADA) provides guidance for cutoff [...] Standards of Medical Care in Diabetes 2016, [place] [employer]. Diabetes Care. 2016.39(Suppl 1). Performed By: #### 2 4321-2, 72249-4 #### [facility] [place] [facility] CLIA [id number] [address] [place] [address] [place] Potassium [Moles/Vol] 4.0 mmol/L Normal 3.7-5.1 [facility] Comment on above: Order Comment: Speci men Type: BLOOD SPECIMEN Performed By: #### 2 4321-2, 25780-7 #### [facility] [place] [facility] CLIA [id number] [address] [place] [address] [place] Sodium [Moles/Vol] 138 mmol/L Normal 136-144 [facility] Comment on above: Order Comment: Speci men Type: BLOOD SPECIMEN Performed By: #### 2 4321-2, 63849-7 #### [facility] [place] [facility] CLIA [id number] [address] [place] [address] [place] Urea nitrogen [Mass/Vol] 42 mg/dL High 9-24 [facility] Comment on above: Order Comment: Speci men Type: BLOOD SPECIMEN Performed By: #### 2 4321-2, 76168-5 #### [facility] [place] [facility] CLIA [id number] [address] [place] [address] [place] CBC W Auto Differential pane l (Bld)on 08-23-2020 Basophils (Bld) [#/Vol] 0.03 10*3/uL Normal <0.11 [facility] Comment on above: Order Comment: Speci men Type: BLOOD SPECIMEN Performed By: #### 3 2693-4 #### [facility] [place] [facility] CLIA [id number] [address] [place] [address] [place] Basophils/100 WBC (Bld) 0.4 % Normal [facility] Comment on above: Order Comment: Speci men Type: BLOOD SPECIMEN Performed By: #### 3 2693-4 #### [facility] [place] [facility] CLIA [id number] [address] [place] [address] [facility] [place] Differential cell count method Nom (Bld) Auto Normal [facility] Comment on above: Order Comment: Speci men Type: BLOOD SPECIMEN Performed By: #### 3 2693-4 #### [facility] [place] [facility] CLIA [id number] [address] [place] [address] [place] Eosinophils (Bld) [#/Vol] 0.12 10*3/uL Normal <0.46 [facility] Comment on above: Order Comment: Speci men Type: BLOOD SPECIMEN Performed By: #### 3 2693-4 #### [facility] [place] [facility] CLIA [id number] [address] [place] [address] [place] Eosinophils/100 WBC (Bld) 1.8 % Normal [facility] Comment on above: Order Comment: Speci men Type: BLOOD SPECIMEN Performed By: #### 3 2693-4 #### [facility] [place] [facility] CLIA [id number] [address] [place] [address] [place] Erythrocyte distribution width (RBC) [Ratio] 12.8 % Normal 11.5-15.0 [facility] Comment on above: Order Comment: Speci men Type: BLOOD SPECIMEN Performed By: #### 3 2693-4 #### [facility] [place] [facility] CLIA [id number] [address] [place] [address] [place] Hematocrit (Bld) [Volume fraction] 37.5 % Low 39.0-51.0 [facility] Comment on above: Order Comment: Speci men Type: BLOOD SPECIMEN Performed By: #### 3 2693-4 #### [facility] [place] [facility] CLIA [id number] [address] [place] [address] [place] Hemoglobin (Bld) [Mass/Vol] 12.7 g/dL Low 13.0-17.0 [facility] Comment on above: Order Comment: Speci men Type: BLOOD SPECIMEN Performed By: #### 3 2693-4 #### [facility] [place] [facility] CLIA [id number] [address] [place] [address] [place] Lymphocytes (Bld) [#/Vol] 1.21 10*3/uL Normal 1.00-4.00 [facility] Comment on above: Order Comment: Speci men Type: BLOOD SPECIMEN Performed By: #### 3 2693-4 #### [facility] [place] [facility] CLIA [id number] [address] [place] [address] [facility] Lymphocytes/100 WBC (Bld) 18.1 % Normal [facility] Comment on above: Order Comment: Speci men Type: BLOOD SPECIMEN Performed By: #### 3 2693-4 #### [facility] [place] [facility] CLIA [id number] [address] [place] [address] [place] MCH (RBC) [Entitic mass] 29.9 pg Normal 26.0-34.0 [facility] Comment on above: Order Comment: Speci men Type: BLOOD SPECIMEN Performed By: #### 3 2693-4 #### [facility] [place] [facility] CLIA [id number] [address] [place] [address] [place] MCHC (RBC) [Mass/Vol] 33.9 g/dL Normal 30.5-36.0 [facility] Comment on above: Order Comment: Speci men Type: BLOOD SPECIMEN Performed By: #### 3 2693-4 #### [facility] [place] [facility] CLIA [id number] [address] [place] [address] [place] MCV (RBC) [Entitic vol] 88.2 fL Normal 80.0-100.0 [facility] Comment on above: Order Comment: Speci men Type: BLOOD SPECIMEN Performed By: #### 3 2693-4 #### [facility] [place] [facility] CLIA [id number] [address] [place] [address] [place] Monocytes (Bld) [#/Vol] 0.54 10*3/uL Normal <0.87 [facility] Comment on above: Order Comment: Speci men Type: BLOOD SPECIMEN Performed By: #### 3 2693-4 #### [facility] [place] [facility] CLIA [id number] [address] [place] [address] [place] Monocytes/100 WBC (Bld) 8.1 % Normal [facility] Comment on above: Order Comment: Speci men Type: BLOOD SPECIMEN Performed By: #### 3 2693-4 #### [facility] [place] [facility] CLIA [id number] [address] [place] [address] [place] Neutrophils (Bld) [#/Vol] 4.78 10*3/uL Normal 1.45-7.50 [facility] Comment on above: Order Comment: Speci men Type: BLOOD SPECIMEN Performed By: #### 3 2693-4 #### [facility] [place] [facility] CLIA [id number] [address] [place] [address] [place] Neutrophils/100 WBC (Bld) 71.6 % Normal [facility] Comment on above: Order Comment: Speci men Type: BLOOD SPECIMEN Performed By: #### 3 2693-4 #### [facility] [place] [facility] CLIA [id number] [address] [place] [address] [place] Platelet mean volume (Bld) [Entitic vol] 10.2 fL Normal 9.0-12.7 [facility] Comment on above: Order Comment: Speci men Type: BLOOD SPECIMEN Performed By: #### 3 2693-4 #### [facility] [place] [facility] CLIA [id number] [address] [place] [address] [facility] [place] Platelets (Bld) [#/Vol] 213 10*3/uL Normal 150-400 [facility] Comment on above: Order Comment: Speci men Type: BLOOD SPECIMEN Performed By: #### 3 2693-4 #### [facility] [place] [facility] CLIA [id number] [address] [place] [address] [place] RBC (Bld) [#/Vol] 4.25 10*6/uL Normal 4.20-6.00 [facility] Comment on above: Order Comment: Speci men Type: BLOOD SPECIMEN Performed By: #### 3 2693-4 #### [facility] [place] [facility] CLIA [id number] [address] [place] [address] [facility] WBC (Bld) [#/Vol] 6.68 10*3/uL Normal 3.70-11.00 [facility] Comment on above: Order Comment: Speci men Type: BLOOD SPECIMEN Performed By: #### 3 2693-4 #### [facility] [place] [facility] CLIA [id number] [address] [place] [address] [facility] ED NOTEon 08-23-2020 ED NOTE HNO ID: [id number] Author: Miguel CuetoRn) NIGEL Funes Service: Emergency Medicine Author Type: [...] anything else to help you? No Normal [facility] ED NOTE HNO ID: [id number] Author: Herman Frias RN Service: Emergency Medicine Author Type: Registered Nurse Type: ED Notes Filed: 08/23/2020 1:27 AM Note Text: Patient discharge instructions given to patient, patient educated on discharge instructions. Patient denied having questions at this time regarding discharge instructions. Patient discharged home with patient's spouse. Patient ambulated out of the emergency department with a steady gait at this time. Normal [facility] ED NOTE HNO ID: [id number] Author: Herman Frias RN Service: Emergency Medicine Author Type: Registered Nurse Type: ED Notes Filed: 08/23/2020 1:06 AM Note Text: Physician at bedside with patient. Normal [facility] ED NOTE HNO ID: [id number] Author: Herman Frias RN Service: Emergency Medicine [...] different of his normal daily routine. Normal [facility] ED NOTE HNO ID: [id number] Author: Herman Frias RN Service: Emergency Medicine Author Type: Registered Nurse Type: ED Notes Filed: 08/22/2020 11:17 PM Note Text: Physician at bedside at this time. Normal [facility] ED PROV NOTEon 08-23-2020 ED PROV NOTE HNO ID: [id number] Author: Yanick Fan MD Service: Emergency Medicine [...] was ini (more content not included)... Normal [facility] HIGH SENSITIVITY TROPONIN To n 08-23-2020 HIGH SENSITIVITY MOUSTAPHA 29 ng/L High <12 [facility] Comment on above: Order Comment: Speci [...] MACE. Performed By: #### H STNT #### [facility] CLIA [id number] [address] [place], [place] [address] [place] [address] HIGH SENSITIVITY MOUSTAPHA 30 ng/L High <12 [facility] Comment on above: Order Comment: Speci [...] MACE. Performed By: #### H STNT #### [facility] CLIA [id number] [address] [place], [place] [address] [place] [address] NT-proBNP [facility] 08-23 Natriuretic peptide.B prohormone N-Terminal [Mass/Vol] 303 pg/mL Normal <450 [facility] Comment on above: Order Comment: Speci men Type: BLOOD SPECIMEN Performed By: #### 2 4321-2, 03134-3 #### [facility] CLIA [id number] [address] [place] [address] [facility] XR CHEST 1V FRONTALon 2020 [...] base may represent atelectasis versus developing pneumonia. Inorganic Chemist: PATRICIA Transcribe Date/Time: Aug 23 2020 12:08A Dictated by : ANDREAS BRYAN MD This examination was interpreted and the report reviewed and electronically signed by: ANDREAS BRYAN MD on Aug 23 2020 12:10AM EST Normal [facility] Vital Signs Date Time Vital Sign Value Performing Clinician Jaxon chu 10-07-2024 08:25-0400 Body height 175.26 cm Suze Barboza DEPUTY CONTROLLER-C Work Phone: [facility] 10-07-2024 08:25-0400 Body mass index (BMI) [Ratio] 32.5 kg/m2 Suze Barboza DEPUTY CONTROLLER-C Work Phone: [facility] 10-07-2024 08:25-0400 Body weight 99.79 kg Suzecesar Barboza DEPUTY CONTROLLER-C Work Phone: [facility] 10-07-2024 08:25-0400 Diastolic blood pressure 77 mm[Hg] [facility] DEPUTY CONTROLLER-C Work Phone: [facility] 10-07-2024 08:25-0400 Heart rate 65 /min [place] Una DEPUTY CONTROLLER-C Work Phone: [facility] 10-07-2024 08:25-0400 Respiratory rate 20 /min Suze Una DEPUTY CONTROLLER-C Work Phone: [facility] 10-07-2024 08:25-0400 Systolic blood pressure 139 mm[Hg] [facility] [employer]C Work Phone: [facility] Encounters Encounter Date Encounter Type Care Provider Facility Start: 11-17-2024 sharon Aggarwal Facility:[facility] Start: 11-17-2024 Non-patient / Non-visit Dr. Gurpreet acosta MD -[facility] Start: 11-17-2024 End: 11-17-2024 ambulatory Suze Barboza DEPUTY CONTROLLER-C Work Phone: [facility] Work Phone: Start: 11-17-2024 End: 11-17-[address] Gurpreet Aggarwal MD -[facility] Work Phone: Start: 11-17-2024 End: 11-17-2024 ambulatory Gurpreet Jasen Facility:[facility] Start: 10-07-2024 End: 10-07-2024 ambulatory Suze Barboza DEPUTY CONTROLLER-C Work Phone: [facility] Work Phone: Start: 10-07-2024 End: 10-07-[address] Gurpreet Aggarwal MD -[facility] Work Phone: Start: 10-07-2024 End: 10-07-[address] Gurpreet Aggarwal MD -[facility] Work Phone: Start: 10-07-2024 End: 10-07-2024 ambulatory Suze Barboza DEPUTY CONTROLLER-C Work Phone: [facility] Work Phone: Start: 10-07-2024 End: 10-07-2024 ambulatory Gurpreet Jasen Facility:[facility] Start: 05-01-2024 End: 05-01-2024 Subsequent hospital visit by physician X[facility] [facility] Start: 03-14-2024 End: 03-14-2024 ambulatory Suze Una Facility:[facility] Start: 09-17-2023 End: 09-17-2023 ambulatory [facility] Work Phone: Start: 09-17-2023 End: 09-17-2023 Patient encounter procedure [facility] Start: 09-01-2022 Non-patient / Non-visit DO Awilda Billings Work Phone: [facility] Start: 09-01-2022 End: 09-01-2022 ambulatory DO Mandy Billings Work Phone: [facility] Work Phone: Start: 09-01-2022 End: 09-01-2022 Patient encounter procedure DO Mandy Billings Work Phone: [facility] Start: 08-22-2022 End: 08-22-2022 ambulatory [facility] Work Phone: Start: 08-22-2022 End: 08-22-2022 Patient encounter procedure [facility] Start: 04-16-2018 Patient encounter procedure AMANDA PLEBRITTANI Facility:[facility] Start: 04-09-2018 Patient encounter procedure AMANDA PLEBRITTANI Facility:[id number] Start: 10-17-2017 Patient encounter procedure AMANDA PLEBRITTANI Facility:[facility] Start: 10-05-2017 Patient encounter procedure AMANDA PLEBRITTANI Facility:[id number] Start: 09-18-2017 Patient encounter procedure AMANDA PLECHA Facility:[facility] Start: 08-30-2017 End: 09-04-2017 Evaluation and management of inpatient AMANDA PLEBRITTANI Facility:[id number] Procedures Date Procedure Procedure Detail Performing Clinician Start: 11-17-2024 Cardiovascular stres s test using pharmacologic stress agent Suze FISHERC Work Phone: Plan of Treatment Date Care Activity Detail Author Start: 10-07-2024 Evaluation of diagno stic study results [facility] Start: 02-22-2024 Diabetes Screening Diabetes Screenin g [facility] Start: 05-28-2023 Advance Directive Discussion Advance Directive Discussion [facility] Start: 2014 Urine microalbumin profile DTaP,Tdap,Td Vaccine (2 - Td or Tdap) [facility] Start: 1960 Anxiety Screening Anxiety Screening [facility] Start: 1960 Depression Screening Depression Scre ening [facility] NM Heart Views W str ess and W radionuclide IV [facility] Payers Date Payer Category Payer Medicare [id number] 2024 Self-pay [id number] 2024 Unknown [id number] 2016 Unknown JEANNIE DENNIS [place] SU[place]LE[place] [id number] 2016-Present [phone] [address] [place] [address] Indemnity [id number] 2008 Unknown [id number] 2007 Medicare 1940 Unknown [id number] 1942 Unknown [id number] Unknown [id number] Unknown [id number] Unknown [id number] Unknown [id number] Unknown [id number] Social History Date Type Detail Facility Start: 08-14-2019 Tobacco smoking stat us CTIS Unknown if ever smoked [facility] Start: 1940 Sex Assigned At Male W [facility] Start: 07-02-2018 End: 10-01-2024 Tobacco smoking status NHIS Ex-smoker [facility] Start: 1940 End: 05-28-1982 History of tobacco use Current smoker [facility] Start: 1940 End: 05-28-1982 History of tobacco use Cigarette Smoker [facility] Start: 07-02-2018 End: 02-21-2021 Cigarettes smoked current (pack per day) - Reported 2 [facility] Start: 07-02-2018 Tobacco use and exposure Smokeless tobacco non-user [facility] Start: 02-21-2021 Alcoholic beverage intake Current non-drinker of alcohol (finding) [facility] Start: 02-21-2021 Tobacco use panel [facility] National Score (1-10 0), lower number is lower risk Not on file [facility] Start: 1940 Sex assigned at Not on file [facility] Evaluation note 10-07-2024 Note Date & [...] 10:57am Obesity chronic October 07, 2024 10:57am [facility] Work Phone: Progress note 10-07-2024 Note Date & Type Note Facility 10-07-2024 Progress note [facility] Progress note 10-07-2024 Note Date & Type Note Facility 10-07-2024 Progress note Note Date/Time October 07, 2024 11:34am [facility] [address] [place] [address] OFFICE VISIT Date of Service: 10/07/24 MR#: [id number] Acct: [id number] Name: YANICK VAUGHN Rep #: [id number] : 1940 Provider: Dr. Korey Aggarwal MD Age/Sex: 83/M Location: [facility] Status: Signed HPI HPI History of Present [...] NIBP Intake Visit Reasons: ABN EKG (UNA) Director Content Marketing Required: No Accompanied by: Self Is patient [...] tablet 25 mg PO DAILY 10/07/24 History pdhoquba-lppb-hnp-folic acid 18 1 ea PO DAILY 06/02/17 [...] MD Cosigner Signature: Date (if applicable) CC: DEPUTY CONTROLLER-C Suze Barboza ~ [employer] Work Phone: History of Present illness Narrative [...] PATIENT PRESENTS WITH AN IMPLANTABLE OR ATTACHED CLOTH TRIMMER HAND: No RADIOLOGY DEPARTMENT: General X-ray: Exam(s) Completed: Spine X-Ray(s): Lumbar AP / LAT / L5-S1 / OBL / FLEX-EXT Pelvis X-Ray: Pelvis with Hip Bilateral PERIPHERAL IV DATA: Not applicable SIGNED BY: RT Sarai(R) May 01, 2024 2:35 PM documented in this encounter [facility] Clinical Note 02-22-2021 Note Date & Type Note Facility 02-22-2021 Note Patient Outreach ([facility]) YANICK VAUGHN ([id number]) 1940 M Date Time Provider Department 02/22/21 [facility] During your visit today, we recorded the [...] Leija and I am calling from the [facility]. I am calling to notify you that [...] one for you. If you have a non-[facility] PCP, please follow up with them as [...] like to speak with a social work steam clothes press operator to help give you support for any of these needs? No It can be normal to feel anxious or down during a time like this. Would you like to talk to a mental health professional about how you have been feeling? No ACTION TAKEN No action taken ELIGIBILITY COUNSELOR Patient Rajiv status is: Active account Thank you for [...] your Primary Care Provider right away. - [facility] 24 Hour Appointment Line at [phone] - Your PCP office - [facility] for a virtual visit 18/12 Caregivers may call: ? [facility] Employee Hotline: [phone] Patient verbalizes understanding of information provided. Denies any further questions at this time. Please visit CDC.gov website for any updated information about Coronavirus. You can also find information on the [facility] website. Additional information can be found on the [facility] and [facility] web sites: https://www.cdc.gov/coronavirus/2019-nCoV /index.html [email or web address] End outreach Allergies As of Date: 02/22/2021 Noted Allergy Reaction ADHESIVE TAPE (ROSINS) 08/14/2019 16 - Unknown CEPHALEXIN 08/14/2019 2 - Rash CHOCOLATE 08/14/2019 16 - Unknown SULFA (SULFONAMIDE ANTIBIOTICS) 03/16/2011 2 - Rash 16 - Unknown Date Reviewed: 02/21/2021 Reviewed by: Mandy Diaz RN - Fully Assessed Reason for Visit: Covid Follow Up [2833] Cmt: ED COVID Notification Prescriptions as of 02/22/2021 - omeprazole (PRILOSEC) 20 mg capsule Take 20 mg by mouth twice daily. - tamsulosin ER (FLOMAX) 0.4 mg cap Take 0.4 mg by mouth twice daily. - metoprolol tartrate, short acting, (LOPRESSOR (more content not included)... [facility] Progress note 02-22-2021 Note Date & Type Note Facility 02-22-2021 Note HNO ID: [id number] Author: Cheli Leija Service: ? Author Type: [...] Leija and I am calling from the [facility]. I am calling to notify you that [...] one for you. If you have a non-[facility] PCP, please follow up with them as [...] like to speak with a social work steam clothes press operator to help give you support for any of these needs? No It can be normal to feel anxious or down during a time like this. Would you like to talk to a mental health professional about how you have been feeling? No ACTION TAKEN No action taken ELIGIBILITY COUNSELOR Patient Rajiv status is: Active account Thank you for [...] your Primary Care Provider right away. - [facility] 24 Hour Appointment Line at [phone] - Your PCP office - [facility] for a virtual visit 18/12 Caregivers may call: ? [facility] Employee Hotline: [phone] Patient verbalizes understanding of information provided. Denies any further questions at this time. Please visit CDC.gov website for any updated information about Coronavirus. You can also find information on the [facility] website. Additional information can be found on the [facility] and [facility] web sites: https://www.cdc.gov/coronavirus/2019-nCoV /index.html [email or web address] End outreach [facility] Evaluation note Note Date & Type Note Facility Evaluation note No assessment information availa [facility] Work Phone: Evaluation note Note Date [...] 10:57am Obesity chronic October 07, 2024 10:57am [employer] Work Phone: Reason for referral (narrative) Note Date & Type Note Facility Reason for referral (narrative) No reason for referral information available [facility] Work Phone: Summary Purpose Family History No [...] Yes June 02 8 9:41am Power of Corporate Legal Manager Yes June 02 018 9:41am Chief Complaint and Reason for Visit [...] EKG (UNA) October 07, 2024 10:57 am Chief Complaint Admit Date ABN EKG (UNA) October 07, 2024 10:57 am EORDER- October 07, 2024 12:51 pm MITRAL VALVE INSUFFICIENCY November 17 6:30am MITRAL VALVE INSUFFICIENCY November 17 10:19am Additional Source Comments (unrecognized sect ion and content) No Status Records FoundNo Status Records FoundNo Status Records FoundNo Status Records FoundNo Status Records FoundNo Status Records Found INFORMATION SOURCE (unrecogn ized section and content) DATE CREATED AUTHOR 05/06/2018 [facility] DATE CREATED AUTHOR AUTHOR'S ORGANIZ ATION 08/23/[address] [facility] [place] [place] [facility] DATE CREATED AUTHOR AUTHOR'S ORGANIZ ATION 02/24/2021 [facility] DATE CREATED AUTHOR AUTHOR'S ORGANIZ ATION 05/05/2021 [facility] DATE CREATED AUTHOR AUTHOR'S ORGANIZ ATION 07/05/2021 [facility] DATE CREATED AUTHOR AUTHOR'S ORGANIZ ATION 11/29/2024 [facility] Teams (unrecognized sec tion and content) Team Status: Active Member Role Status Dates Dr. Chris Nix MD Family Provider Active Mandy Billings DO Primary Care Provider Active Team Status: Inactive Member Role Status Dates Mandy Billings , Primary Care Provi chasity, Attending Provider, Referring Provider Active Team Status: Active Member Role Status Dates Mandy Billings , DO Primary Care Provider Active Dr. Gurpreet Aggarwal MD Attending Provider Active Team Status: Active Member Role Status Dates Dr. Chris Nix MD Family Provider Active Suze Barboza NP-C Primary Care Provider Active Team Status: Inactive Member Role Status Dates Suze Barboza NP-C Primary Care Provide r, Attending Provider, Referring Provider Active Slot Tag Inserter Relationship Specialty Start Date End Date Chris Nix MD [address] [place] [address] PCP - General Family Medicine 07/02/18 Team Status: Inactive Member Role Status Dates Suze Barboza NP-[place] Primary Care Provider Active Start: October 07, 2024 End: October 07, 2024 Suze Barboza NP-[place] Referring Provider Active St art: October 07, [...] 2024 End: October 07, 2024 Team Status: Inactive Member Role Status Dates JEANCARLOS Vaughn Primary Care Provider Active Start: November 17, 2024 End: November 17, 2024 Dr. Gurpreet Aggarwal MD Attending Provider Active Start: November 17, 2024 End: November 17, 2024 Dr. Gurpreet Aggarwal MD Referring Provider Active Start: November 17, 2024 End: November 17, 2024 Team Status: Active Member Role Status Dates JEANCARLOS Vaughn Primary Care Provider Active Start: November 17, 2024 Dr. Gurpreet Aggarwal MD Attending Provider Active Start: November 17, 2024 Dr. Gurpreet Aggarwal MD Referring Provider Active Start: November 17, 2024 Dr. Gurpreet Aggarwal MD Other Provider Active Star t: November 17, 2024 Goals (unrecognized section and content) Goals [...] or prosecute any alcohol or drug abuse patient.[facility] FOR RECORDS PERTAINING TO PATIENTS WHO ARE [...] BE BASED ON THE PRIMARY CLINICAL RECORDS. [email or web address] [facility]. provides no warranty or guarantee of the accuracy or completeness of information in this document.
[2025-01-03 09:23] LABS: Hematocrit 38.4 % (40-54); Hemoglobin 12.8 g/dL (13.0-16.5); Immature Granulocytes Count 0.020 X10^3/uL (0.0-0.0); Mean Corp Hgb Conc 33.3 g/dL (32-36); Mean Corpuscular Volume 94.3 fL (80-94); Mean Platelet Vol. 9.5 fl (6.2-12.0); NRBC Flagged by Analyzer 0 % (0-5); Platelet Count 192 K/mm3 (150-450); RBC Distribution Width CV 12.9 % (11.6-14.6); RBC Distribution Width SD 44.5 fl (35.1-43.9); Red Blood Count 4.07 M/mm3 (4.6-6.2); White Blood Count 7.1 K/mm3 (4.4-11.0)
[2025-01-03 09:55] LABS: Cholesterol 177 mg/dL (<=200); Low Density Lipoprotein Calc. 93 mg/dL; Triglycerides 206 mg/dL; Very Low Density Lipoprotein 41 mg/dL (5-40); cholesterol:hdl ratio screen 4.15
[2025-01-03 10:02] LABS: AST(SGOT) 20 U/L (<=37); Alanine Aminotransfer ALT/SGPT 21 U/L (<=46); Albumin, Serum 3.9 g/dL (3.4-4.8); Alkaline Phosphatase 49 U/L (40-129); Anion Gap 12 (5-15); BUN 41 mg/dL (4-19); BUN/Creat Ratio 17.9 RATIO (10-20); Calcium,Total 9.4 mg/dL (7.6-11.0); Carbon Dioxide 24.1 mmol/L (21.0-32.0); Chloride 103 mmol/L (98-108); Globulin 2.7 g/dL (2.2-4.2); Glucose 189 mg/dL (70-99); PSA,Total - Annual Screen 0.36 ng/mL (0.02-4.00); Potassium 4.4 mmol/L (3.3-5.1); Vitamin D,25 Hydroxy 50.0 ng/mL (30-100)
== END | disposition home or self-care (01) ==
LOC: LAB 09:13
PROVIDERS: PCP Nurse Practitioner Family; Referring Provider Nurse Practitioner Family; Visit Provider Nurse Practitioner Family
DX: E78.5 Hyperlipidemia, unspecified (principal); I10 Essential (primary) hypertension; E55.9 Vitamin D deficiency, unspecified; Z12.5 Encounter for screening for malignant neoplasm of prostate
CPT/HCPCS: 36415; 80053; 80061; 82306; 84153; 85025; G0103